=== PATIENT | male | born 1940 | race Caucasian/White ===

== ENCOUNTER 2019-02-22 11:40 | Inpatient (IN) | payer MEDICARE, OTHER ==
--- NOTE | 2019-02-22 12:13 | CT ---
CT BRAIN WITHOUT CONTRAST: 02/22/2019 12:00 a.m. CLINICAL HISTORY: History of altered mental status. Fall. COMPARISON: None. FINDINGS: Hemorrhage: None. Ventricular system: Enlarged ventricular system, out of size proportion to the cerebral sulci. Cerebral parenchyma: Periventricular white matter hypoattenuation bilaterally Midline shift: None. Mass: No mass effect. Calvarium: Normal. Visualized Paranasal sinuses: Scattered mild inflammatory mucosal thickening. IMPRESSION: Enlarged ventricular system, out of proportion to size of cerebral sulci with periventricular white m atter hypoattenuation. This could relate to transependymal cerebrospinal fluid migration. Recommend clinical correlation for evidence of normal pressure hydrocephalus. Telephone call to ER physician placed at time of dictation (1210 hours). CODE CR Transcribed Date/Time: 02/22/2019 12:48 PM
[2019-02-22 12:15] LABS: #Lymphocytes 0.4 thou/uL (1.20-3.40); #Neutrophils 10.5 thou/uL (1.40-6.50); %Lymphocytes 3.3 % (21.0-51.0); %Monocytes 8.7 % (0.0-10.0); Hemoglobin 15.1 g/dL (14.0-18.0); Mean Corpuscular HGB CONC 35.9 g/dL (32.0-36.0); Mean Corpuscular Hemoglobin 33.2 pg (27.0-31.0); Mean Corpuscular Volume 92.5 fL (78.0-98.0); Mean Platelet Volume 9.1 fL (7.4-10.4); Platelet Count 159 thou/uL (130-400); RBC Distribution Width 11.8 % (11.5-14.5); Red Blood Cell (RBC) Count 4.54 mill/uL (4.70-6.10)
--- NOTE | 2019-02-22 12:19 | CT ---
CT Cervical Spine WO Con Indication: History of neck injury related to fall COMPARISON: None available FINDINGS: Motion artifact does limit assessment. Acute fracture: No acute fracture Spinal alignment: There is spondylolisthesis, grade 1, C4-5 level likely degenerative, given the asso ciated bilateral facet osteoarthritis. Vertebral body heights: Mild degenerative height loss of cervical spine vertebral bodies Cervical spine degenerative change: Moderate to severe degenerative change, most notable at the mid t o lower aspect IMPRESSION: No acute osseous abnormality.
[2019-02-22 12:30] LABS: ALT (SGPT) 21 U/L (8-55); AST (SGOT) 29 U/L (5-34); Acetaminophen Less than 6.0 mcg/mL (10.0-30.0); Albumin 4.2 g/dL (3.4-4.8); Alcohol Less than 10 mg/dL (Less than 10); Alkaline Phosphatase 116 U/L (40-110); Anion Gap 17 mmol/L (10-20); BUN (Urea Nitrogen) 16 mg/dL (8.4-25.7); Bilirubin, Total 0.6 mg/dL (0.2-1.2); CK (CPK) 436 U/L (30-200); Calc. Creatinine Clearance 0 mL/min (70-130); Calcium 10.3 mg/dL (7.8-10.44); Carbon Dioxide 23 mmol/L (23-31); Chloride 101 mmol/L (98-107); Estimated GFR-MDRD 62; Globulin 3.1 g/dL (2.4-3.5); Glucose 200 mg/dL (83-110); Potassium 3.2 mmol/L (3.5-5.1); Protein, Total 7.3 g/dL (5.8-8.1); Salicylate Less than 8.0 mg/dL (15.0-30.0); Sodium 138 mmol/L (136-145)
[2019-02-22] MEDS ORDERED: Lorazepam 2 MG/ML VIAL ONE (12:41)
[2019-02-22 12:52] LABS: Bacteria/HPF None Seen HPF (None Seen); Bilirubin Negative (Negative); Blood, Urine 1+ (Negative); Clarity Clear (Clear); Glucose, Urine (Dipstick) 300 mg/dL (Negative); Leukocyte Negative Leu/uL (Negative); Nitrite Negative (Negative); Protein, Urine (Dipstick) 50 mg/dL (Neg-Trace); RBC/HPF 0-3 HPF (0-3); Squamous Epithelial None Seen HPF (0-3); Urobilinogen Normal mg/dL (Less than 2); WBC/HPF 0-3 HPF (0-3)
[2019-02-22 13:01] LABS: Amphetamine Not Detected (NotDetected); Barbiturates Screen Not Detected (NotDetected); Benzodiazepine Screen Not Detected (NotDetected); Cocaine Metabolite Screen Not Detected (NotDetected); Medtox Control Line Valid? VALID (VALID); Medtox Reader # READER 4; Methadone Not Detected (NotDetected); Methamphetamine Not Detected (NotDetected); Opiate Screen Not Detected (NotDetected); Oxycodone Screen Not Detected (NotDetected); Phencyclidine (PCP) Not Detected (NotDetected); THC/Cannabinoid Screen Not Detected (NotDetected); Tricyclic Screen Not Detected (NotDetected)
[2019-02-22 13:04] LABS: CKMB 15.5 ng/mL (0-6.6)
[2019-02-22 13:05] LABS: INR-International Normal Ratio 1.3; PTT 31.4 SEC (22.9-36.1); Prothrombin Time 15.9 SEC (12.0-14.7)
[2019-02-22] MEDS ORDERED: levETIRAcetam In NaCl (Iso-Os) 1,000 MG in Premix Bag 1 BAG IVPB ONE (13:15)
--- NOTE | 2019-02-22 13:16 | RAD ---
Exam: Chest one view HISTORY:AMS Comparison: 05/30/2002 FINDINGS: Lungs: No masses or consolidation. Cardiac silhouette:Enlarged cardiac silhouette Pulmonary vessels: Normal Pleural Spaces: Clear Pneumothorax: None Osseous abnormalities: None of acuity. IMPRESSION: Enlarged cardiac silhouette. Correlate clinically.
[2019-02-22] MEDS ORDERED: Nitroglycerin 2% Ointment 1 INCH/1 GM Packet ONE ×2 (13:19→13:21)
[2019-02-22] MEDS ORDERED: Aspirin 300 MG Suppository ONE (13:19)
[2019-02-22] MEDS ORDERED: Enoxaparin Sodium 80 MG/0.8 ML SYRINGE ONE (13:19)
[2019-02-22] MEDS ORDERED: Haloperidol Lactate 5 MG/ML VIAL IM PRN (13:44)
[2019-02-22] MEDS ORDERED: Morphine 4 MG/ML VIAL SLOW IVP PRN (13:45)
[2019-02-22] MEDS ORDERED: HYDROcodone/Acetaminophen 5/325 mg Tablet PO PRN (13:46)
[2019-02-22] MEDS ORDERED: Ondansetron PF 4 MG/2 ML Vial IVP PRN (13:46)
[2019-02-22] MEDS ORDERED: Acetaminophen 650 MG Suppository PR PRN (13:46)
[2019-02-22] MEDS ORDERED: Ondansetron ODT 4 MG TAB PO PRN (13:46)
[2019-02-22] MEDS ORDERED: Benzonatate 100 MG CAP PO PRN (13:50)
[2019-02-22] MEDS ORDERED: Docusate 100 MG CAP PO PRN (13:50)
[2019-02-22] MEDS ORDERED: Labetalol HCl 100 MG/20 ML VIAL SLOW IVP PRN (13:50)
[2019-02-22] MEDS ORDERED: Nitroglycerin 0.4 MG TAB (25 Tab Bottle) SL PRN (13:53)
[2019-02-22] MEDS ORDERED: Lorazepam 2 MG/ML VIAL SLOW IVP PRN (13:54)
[2019-02-22] MEDS ORDERED: Heparin 10,000 UNITS/ 10 ML VIAL SLOW IVP SCH (14:00)
[2019-02-22] MEDS ORDERED: Heparin 25,000 units/D5W 500 ML IVPB SCH (14:00)
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
[2019-02-22] MEDS ORDERED: Dextrose 5% in Water 1,000 ML IV PRN (14:44)
[2019-02-22] MEDS ORDERED: Dextrose 50% Abboject 50 ML SYRINGE SLOW IVP PRN (14:44)
[2019-02-22 15:29] LABS: Hemoglobin 14.6 g/dL (14.0-18.0); Platelet Count 151 thou/uL (130-400)
[2019-02-22 15:58] LABS: Troponin I 2.187 ng/mL (< 0.028)
--- NOTE | 2019-02-22 17:39 | CON ---
DATE OF CONSULTATION: REASON FOR CONSULTATION: Elevated troponin. HISTORY OF PRESENT ILLNESS: Mr. Cristobal Godinez is a 78-year-old gentleman, who recently seen and evaluated in the ICU. He had a seizure earlier this morning. The states it lasted several minutes. His eyes rolled back and he had tonic clonic jerks. He was stiff. He did have mental status changes shortly thereafter. He then had a recurrent episode. She states he had an episode of seizure several months ago, but did not seek treatment. This is a first episode. He has no previous history of early coronary artery disease. He denied chest pain, pressure, or associated symptoms prior to this episode. PAST MEDICAL HISTORY: Hypertension, hyperlipidemia, seizures, osteoarthritis, colon resection. SOCIAL HISTORY: No current tobacco or alcohol use. REVIEW OF SYSTEMS: Unobtainable. The patient has received Ativan. PHYSICAL EXAMINATION: GENERAL: The patient is currently sedated, but maintaining airway. VITAL SIGNS: Blood pressure 146/84, pulse 97, temperature, afebrile. NEUROLOGIC: The patient is alert and oriented x3 with no focal neurologic deficits. HEENT: Sclerae without icterus. Mouth has moist mucous membranes with normal pallor. NECK: No JVD. Carotid upstroke brisk. No bruits bilaterally. LUNGS: Clear to auscultation with unlabored respirations. BACK: No scoliosis or kyphosis. CARDIAC: Regular rate and rhythm with normal S1 and S2. No S3 or S4 noted. No significant rubs, murmurs, thrills, or gallops noted throughout the precordium. PMI is not displaced. There is no parasternal heave. ABDOMEN: Soft, nontender, nondistended. No peritoneal signs present. No hepatosplenomegaly. No abnormal striae. EXTREMITIES: 2+ femoral and 2+ dorsalis pedis pulses. No cyanosis, clubbing, or edema. SKIN: No gross abnormalities. PERTINENT LABORATORY DATA: Hemoglobin 15.1, white blood cell count 12,000, peak troponin 2.1, BNP of 294, CK-MB of 15.5. EKG showed normal sinus rhythm, right bundle branch block. IMPRESSION: 1. Elevated troponin. 2. Seizure disorder. RECOMMENDATIONS: So certainly troponin and CK-MB can both be elevated in the phase of seizure disorder. He has no previous history of underlying coronary artery disease. Neurosurgery and Neurology have been consulted. From my standpoint, would consider close observation. Recommend aspirin and treat blood pressure and heart rate aggressively. The patient is currently not taking p.o., but when taking p.o., I would recommend a beta-neha therapy. Continue to trend CKs and troponins. I will recommend echo Doppler. Job ID: [id number]
[2019-02-22 19:57] LABS: Troponin I 2.704 ng/mL (< 0.028)
[2019-02-22] MEDS: Famotidine/PF 20 mg/2ml Vial SLOW IVP SCH (21:10)
[2019-02-22] MEDS: Sodium Chloride 0.9% 1,000 ML IV SCH (21:11)
[2019-02-22] MEDS: levETIRAcetam In NaCl (Iso-Os) 1,000 MG in Premix Bag 1 BAG IVPB SCH (21:16)
[2019-02-23] MEDS: Sodium Chloride 0.9% 1,000 ML IV SCH ×3 (01:39→20:30)
[2019-02-23 04:48] LABS: #Basophils 0.1 thou/uL (0.0-0.2); #Lymphocytes 0.5 thou/uL (1.20-3.40); #Monocytes 1.3 thou/uL (0.11-0.59); #Neutrophils 14.3 thou/uL (1.40-6.50); %Basophils 0.5 % (0.0-1.0); %Eosinophils 0.1 % (0.0-10.0); %Lymphocytes 2.8 % (21.0-51.0); %Monocytes 8.2 % (0.0-10.0); %Neutrophils 88.4 % (42.0-75.0); Hemoglobin 15.3 g/dL (14.0-18.0); Mean Corpuscular HGB CONC 35.1 g/dL (32.0-36.0); Mean Corpuscular Hemoglobin 32.6 pg (27.0-31.0); Mean Corpuscular Volume 92.8 fL (78.0-98.0); Mean Platelet Volume 9.3 fL (7.4-10.4); Platelet Count 145 thou/uL (130-400); White Blood Cell (WBC) Count 16.2 thou/uL (4.8-10.8)
[2019-02-23 05:12] LABS: Anion Gap 19 mmol/L (10-20); BUN (Urea Nitrogen) 13 mg/dL (8.4-25.7); Calc. Creatinine Clearance 70 mL/min (70-130); Calcium 9.3 mg/dL (7.8-10.44); Carbon Dioxide 20 mmol/L (23-31); Chloride 103 mmol/L (98-107); Estimated GFR-MDRD 85; Glucose 107 mg/dL (83-110); Sodium 139 mmol/L (136-145)
[2019-02-23 05:15] LABS: Potassium 2.9 mmol/L (3.5-5.1)
[2019-02-23] MEDS ORDERED: Potassium Chloride 40 MEQ in Sodium Chloride 0.9% 250 ML 250 ML IVPB SCH (06:00)
--- NOTE | 2019-02-23 06:42 | PDOC.CPN ---
- Subjective Date: 02/23/19 Time: 13:38 Interval history: Pt still non verbal today EEG being performed No new issues overnight - Objective Allergies/Adverse Reactions: Allergies Allergy/AdvReac Type Severity Reaction Status Date / Time No Known Allergies Allergy Unverified 02/22/19 13:11 Visit Medications: Current Medications Acetaminophen (Tylenol) 650 mg MS Q4H PRN PRN Reason: Headache/Fever/Mild Pain (1-3) Hydrocodone Bitart/Acetaminophen (Moran 5/325) 1 tab PO Q4H PRN PRN Reason: Moderate Pain (4-6) Albuterol/Ipratropium (Duoneb) 3 ml NEB [id number] PRN PRN Reason: SOB &/or Wheezing Benzonatate (Tessalon) 100 mg PO Q4H PRN PRN Reason: Cough Dextrose/Water (Dextrose 50%) 25 gm SLOW IVP PRN PRN PRN Reason: Hypoglycemia Diphenhydramine HCl (Benadryl) 25 mg PO Q6H PRN PRN Reason: Itching & Insomnia Docusate Sodium (Colace) 100 mg PO BIDPRN PRN PRN Reason: Constipation Famotidine (Pepcid) 20 mg SLOW IVP Q12HR CAN Last Admin: 02/22/19 21:10 Dose: 20 mg Glucagon (Glucagon) 1 mg IM PRN PRN PRN Reason: Hypoglycemia Haloperidol Lactate (Haldol) 5 mg IM Q4H PRN PRN Reason: Agitation Heparin Sodium (Porcine) (Heparin 1,000 Units/Ml (10 Ml)) 0 units SLOW IVP ASDIR CAN; Protocol Levetiracetam 1,000 mg/ Device 100 mls @ 200 mls/hr IVPB BID CAN Last Admin: 02/22/19 21:16 Dose: 100 mls Heparin Sodium/Dextrose (Heparin 25,000 Units/D5w 500 Ml) 500 mls @ 0 mls/hr IVPB INF CAN; Protocol Dextrose/Water (D5w) 1,000 mls @ 0 mls/hr IV .Q0M PRN PRN Reason: Hypoglycemia Sodium Chloride (Normal Saline 0.9%) 1,000 mls @ 125 mls/hr IV .Q8H CAN Last Admin: 02/23/19 01:39 Dose: 1,000 mls Potassium Chloride 40 meq/ (Sodium Chloride) 270 mls @ 67.5 mls/hr IVPB NOW CAN Stop: 02/23/19 09:59 Last Admin: 02/23/19 06:31 Dose: 270 mls Insulin Human Lispro (Humalog) 0 units SC .MILD SLIDING SCALE PRN PRN Reason: Mild Correctional Scale Insulin Human Lispro (Humalog) 0 units SC .BEDTIME SLIDING SC PRN PRN Reason: Bedtime Correctional Scale Labetalol HCl (Normodyne) 10 mg SLOW IVP Q4H PRN PRN Reason: SBP Greater Than 180 Lorazepam (Ativan) 2 mg SLOW IVP Q1H PRN PRN Reason: Seizures Last Admin: 02/22/19 16:20 Dose: 2 mg Morphine Sulfate (Morphine) 4 mg SLOW IVP Q4H PRN PRN Reason: Chest Pain Last Admin: 02/22/19 16:05 Dose: 4 mg Nitroglycerin (Nitrostat) 0.4 mg SL Q5MIN PRN PRN Reason: Chest Pain Ondansetron HCl (Zofran Odt) 4 mg PO Q6H PRN PRN Reason: Nausea/Vomiting Ondansetron HCl (Zofran) 4 mg IVP Q6H PRN PRN Reason: Nausea/Vomiting Pneumococcal 13-Valent Conj Vacc (Prevnar) 0.5 ml IM .ONCE ONE Stop: 02/23/19 09:01 Vital Signs & Weight: Vital Signs Temp Pulse Ox 02/23/19 04:00 98.7 F 02/23/19 00:00 98.5 F 02/22/19 19:48 97 02/22/19 19:02 99 02/22/19 19:00 98.1 F Weight 155 lb 6.814 oz - Physical Exam Neck: no masses, no bruit Cardiac: regular rhythm Lungs: normal exam, no wheezes Abdomen: soft - Labs Result Diagrams: 02/23/19 04:21 02/23/19 04:21 Troponin/CKMB CK-MB (CK-2) 15.5 ng/mL (0-6.6) H* 02/22/19 11:59 Troponin I 2.704 ng/mL (< 0.028) H* 02/22/19 19:19 - Assessment/Plan Assessment/Plan: Elevated troponin Seizure D/o Elevated troponin >3.5 suggests significance injury after seizure. Troponin in this case 2.7 Check echo Continue supoprtive care Neuro consult
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
[2019-02-23] MEDS: Famotidine/PF 20 mg/2ml Vial SLOW IVP SCH ×2 (07:52→20:52)
--- NOTE | 2019-02-23 07:52 | PDOC.HOSPP ---
- Subjective Encounter Date: 02/23/19 Encounter Time: 07:50 Subjective: minimal verbal responce - Objective Vital Signs & Weight: Vital Signs (12 hours) Temp Pulse Ox 02/23/19 07:03 97 02/23/19 07:00 98.6 F 02/23/19 04:00 98.7 F 02/23/19 00:00 98.5 F Weight Weight 155 lb 6.814 oz Most Recent Monitor Data Heart Rate from ECG 106 NIBP 153/87 NIBP BP-Mean 109 Respiration from ECG 14 SpO2 98 I&O: 02/22/19 02/23/19 02/24/19 06:59 06:59 06:59 Intake Total 100 0 Output Total 675 0 Balance -575 0 Result Diagrams: 02/23/19 04:21 02/23/19 04:21 Additional Labs: Accuchecks 02/23/19 02/23/19 02/23/19 06:00 04:32 01:46 POC Glucose 120 H 104 111 H 02/22/19 02/22/19 02/22/19 23:56 22:21 19:49 POC Glucose 94 95 111 H 02/22/19 16:17 POC Glucose 146 H Hospitalist ROS - Medication Medications: Active Medications Generic Name Dose Route Start Last Admin Trade Name Freq PRN Reason Stop Dose Admin Famotidine 20 mg 02/22/19 21:00 02/22/19 21:10 Pepcid SLOW IVP 20 mg Q12HR CAN Administration Levetiracetam 1,000 mg/ Device 100 mls @ 200 mls/hr 02/22/19 21:00 02/22/19 21:16 IVPB 100 mls BID CAN Administration Sodium Chloride 1,000 mls @ 125 mls/hr 02/22/19 17:45 02/23/19 01:39 Normal Saline 0.9% IV 1,000 mls .Q8H CAN Administration Potassium Chloride 40 meq/ 270 mls @ 67.5 mls/hr 02/23/19 06:00 02/23/19 06: 31 Sodium Chloride IVPB 02/23/19 09:59 270 mls NOW CAN Administration Lorazepam 2 mg 02/22/19 13:54 02/22/19 16:20 Ativan SLOW IVP 2 mg Q1H PRN Administration Seizures Morphine Sulfate 4 mg 02/22/19 13:45 02/22/19 16:05 Morphine SLOW IVP 4 mg Q4H PRN Administration Chest Pain - Exam Neck: no JVD Heart: RRR, no murmur Respiratory: CTAB Gastrointestinal: soft, non-tender, normal bowel sounds Extremities: no edema Neurological - other findings: flaccd R arm Hosp A/P (1) Encephalopathy acute Code(s): G93.40 - ENCEPHALOPATHY, UNSPECIFIED Status: Acute (2) NSTEMI (non-ST elevated myocardial infarction) Code(s): I21.4 - NON-ST ELEVATION (NSTEMI) MYOCARDIAL INFARCTION Status: Acute (3) 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 Code(s): G40.211 - LOCAL-REL SYMPTC EPI W CMPLX PARTIAL SEIZ, NTRCT, W STAT EPI Status: Acute (4) DM (diabetes mellitus) Code(s): E11.9 - TYPE 2 DIABETES MELLITUS WITHOUT COMPLICATIONS Status: Chronic Qualifiers: Diabetes mellitus type: type 2 Diabetes mellitus fpc insulin use: without fpc use Diabetes mellitus complication status: with neurologic complications Diabetes mellitus complication detail: with polyneuropathy Qualified Code(s): E11.42 - Type 2 diabetes mellitus with diabetic polyneuropathy (5) HLD (hyperlipidemia) Code(s): E78.5 - HYPERLIPIDEMIA, UNSPECIFIED Status: Chronic Qualifiers: Hyperlipidemia type: unspecified Qualified Code(s): E78.5 - Hyperlipidemia , unspecified (6) HTN (hypertension) Code(s): I10 - ESSENTIAL (PRIMARY) HYPERTENSION Status: Chronic Qualifiers: Hypertension type: essential hypertension Qualified Code(s): I10 - Essential (primary) hypertension - Plan cont iv anti seizure meds MRI brain neuro consult accu/ss etc parenteral tx for HTN
[2019-02-23] MEDS ORDERED: Prevnar 13-Val Conj/PF 0.5 ML SYRINGE IM ONE (09:00)
[2019-02-23 09:20] LABS: CKMB 16.9 ng/mL (0-6.6)
[2019-02-23] MEDS: levETIRAcetam In NaCl (Iso-Os) 1,000 MG in Premix Bag 1 BAG IVPB SCH (09:59)
--- NOTE | 2019-02-23 12:52 | MRI ---
MRI BRAIN WITH AND WITHOUT IV CONTRAST: Date: 02/23/19 HISTORY: Seizures, altered mental status. FINDINGS: No restricted diffusion is seen. There is periventricular T2 hyperintensity bilaterally which may be related to transependymal CSF migration. The ventricular size appears slightly more prominent than ex pected for the degree of atrophy. No evidence of infarct, hemorrhage, mass, midline shift, or abnorma l extra-axial fluid collections seen. No abnormal postcontrast enhancement is noted. IMPRESSION: 1. No evidence of acute intracranial process or mass. 2. Probable normal pressure hydrocephalus. POS: OFF
[2019-02-23] MEDS: HumaLOG 300 UNITS/3 ML VIAL SC PRN (20:02)
--- NOTE | 2019-02-24 00:34 | CON ---
DATE OF CONSULTATION: 02/23/2019 CONSULTING PHYSICIAN: Hospitalist Services. IMPRESSION: 1. Recurrent seizures. 2. Lethargy, possibly secondary to the anticonvulsants. PLAN: 1. Decrease Keppra to 500 mg twice daily. 2. Monitor clinical course. HISTORY OF PRESENT ILLNESS: Mr. Godinez is a 78-year-old gentleman who reportedly is quite independent. He gets around independently without any cane or walker. He was helping his son build a ramp last week. He has mowed the grass on his own. He takes care of himself around the house. His reports he is a little forgetful, but he has no difficulties taking care of himself independently. About 3 months ago, she saw a brief seizure like episode. It only lasted a few seconds and it cleared quickly. Had no postictal phase of any significance. Prior to admission, his witnessed him to have a generalized tonic-clonic seizure while lying in bed. He was frothing at the mouth. She is indeterminate on the duration of the seizure. He awoke from the seizure and got himself out of the bed. He had wet his pants. She was stripping the bed and he attempted to walk around. He sat himself down and could not get up, his daughter decided need to be brought into the hospital. He had a CT scan of the brain done, which showed some ventricular enlargement and periventricular white matter changes. He was given IV Keppra 1000 mg. He has subsequently had an MRI of the brain, which failed to reveal any acute abnormalities. He did an EEG earlier today, which shows some normal 8 hertz background with superimposed mixed frequency slowing. No epileptiform features are present. PAST MEDICAL HISTORY: Hypertension, diabetes, hyperlipidemia, chronic pain from arthritis. MEDICATIONS: Include Xarelto. SOCIAL HISTORY: No tobacco or alcohol use. FAMILY HISTORY: Noncontributory. REVIEW OF SYSTEMS: Could not be obtained at this point due to his inability to answer. PHYSICAL EXAMINATION: GENERAL: He is a well-nourished elderly man, lying in bed, appearing to be asleep. VITAL SIGNS: Blood pressure 140/89, pulse 98, respirations 28, saturations 97%. HEENT: Pupils equal in size. Eyes are conjugate. Conjunctivae clear. Oropharynx clear. Cranium, normocephalic and atraumatic. NECK: Supple. EXTREMITIES: No cyanosis or edema. NEUROLOGIC: Could not get him to arouse and follow any commands at this point. His face appeared to be symmetric. His tone is symmetric. No abnormal movements were seen. SUMMARY: This is an elderly gentleman who was quite functional, independent, has had 2 recent seizures. I agree with Beulah, but would reduce the dose at this point. Hopefully, he will clear his head and return to his baseline shortly. Job ID: [id number]
[2019-02-24] MEDS: Sodium Chloride 0.9% 1,000 ML IV SCH ×3 (02:36→18:41)
[2019-02-24] MEDS: HumaLOG 300 UNITS/3 ML VIAL SC PRN ×2 (05:09→21:37)
--- NOTE | 2019-02-24 06:32 | PDOC.CPN ---
- Subjective Date: 02/24/19 Time: 20:52 Interval history: No changes noted overnight - Objective Allergies/Adverse Reactions: Allergies Allergy/AdvReac Type Severity Reaction Status Date / Time No Known Allergies Allergy Unverified 02/22/19 13:11 Visit Medications: Current Medications Acetaminophen (Tylenol) 650 mg MS Q4H PRN PRN Reason: Headache/Fever/Mild Pain (1-3) Hydrocodone Bitart/Acetaminophen (Conger 5/325) 1 tab PO Q4H PRN PRN Reason: Moderate Pain (4-6) Albuterol/Ipratropium (Duoneb) 3 ml NEB Q2BA-FH PRN PRN Reason: SOB &/or Wheezing Benzonatate (Tessalon) 100 mg PO Q4H PRN PRN Reason: Cough Dextrose/Water (Dextrose 50%) 25 gm SLOW IVP PRN PRN PRN Reason: Hypoglycemia Diphenhydramine HCl (Benadryl) 25 mg PO Q6H PRN PRN Reason: Itching & Insomnia Docusate Sodium (Colace) 100 mg PO BIDPRN PRN PRN Reason: Constipation Famotidine (Pepcid) 20 mg SLOW IVP Q12HR CAN Last Admin: 02/23/19 20:52 Dose: 20 mg Glucagon (Glucagon) 1 mg IM PRN PRN PRN Reason: Hypoglycemia Haloperidol Lactate (Haldol) 5 mg IM Q4H PRN PRN Reason: Agitation Heparin Sodium (Porcine) (Heparin 1,000 Units/Ml (10 Ml)) 0 units SLOW IVP ASDIR CAN; Protocol Heparin Sodium/Dextrose (Heparin 25,000 Units/D5w 500 Ml) 500 mls @ 0 mls/hr IVPB INF CAN; Protocol Dextrose/Water (D5w) 1,000 mls @ 0 mls/hr IV .Q0M PRN PRN Reason: Hypoglycemia Sodium Chloride (Normal Saline 0.9%) 1,000 mls @ 125 mls/hr IV .Q8H CAN Last Admin: 02/24/19 02:36 Dose: 1,000 mls Levetiracetam 500 mg/ Device 100 mls @ 200 mls/hr IVPB BID CAN Last Admin: 02/23/19 20:52 Dose: 100 mls Insulin Human Lispro (Humalog) 0 units SC .MILD SLIDING SCALE PRN PRN Reason: Mild Correctional Scale Last Admin: 02/24/19 05:09 Dose: 2 unit Insulin Human Lispro (Humalog) 0 units SC .BEDTIME SLIDING SC PRN PRN Reason: Bedtime Correctional Scale Labetalol HCl (Normodyne) 10 mg SLOW IVP Q4H PRN PRN Reason: SBP Greater Than 180 Lorazepam (Ativan) 2 mg SLOW IVP Q1H PRN PRN Reason: Seizures Last Admin: 02/22/19 16:20 Dose: 2 mg Morphine Sulfate (Morphine) 4 mg SLOW IVP Q4H PRN PRN Reason: Chest Pain Last Admin: 02/22/19 16:05 Dose: 4 mg Nitroglycerin (Nitrostat) 0.4 mg SL Q5MIN PRN PRN Reason: Chest Pain Ondansetron HCl (Zofran Odt) 4 mg PO Q6H PRN PRN Reason: Nausea/Vomiting Ondansetron HCl (Zofran) 4 mg IVP Q6H PRN PRN Reason: Nausea/Vomiting Vital Signs & Weight: Vital Signs Temp Pulse Ox 02/24/19 04:00 98.6 F 02/24/19 00:00 98.3 F 02/23/19 20:00 98.5 F 02/23/19 19:20 96 02/23/19 18:31 96 Weight 155 lb 6.814 oz - Physical Exam General: alert & oriented x3 Neck: no masses, no bruit Cardiac: regular rate, regular rhythm Lungs: no wheeze, rales, rhonchi - Labs Result Diagrams: 02/24/19 15:09 02/23/19 04:21 Troponin/CKMB CK-MB (CK-2) 16.9 ng/mL (0-6.6) H* 02/23/19 08:05 Troponin I 2.704 ng/mL (< 0.028) H* 02/22/19 19:19 - Assessment/Plan Assessment/Plan: Type 2 RI Seizure disorder Add BB,statin, ASA when more alert and awake Pt still not taking po meds Check echo Treat conservatively
--- NOTE | 2019-02-24 08:58 | PDOC.HOSPP ---
- Subjective Encounter Date: 02/24/19 Encounter Time: 08:56 Subjective: minimally responsive. uses L arm spontaneously, minimal use R arm. says he is R handed - Objective Vital Signs & Weight: Vital Signs (12 hours) Temp Pulse Ox 02/24/19 07:50 95 02/24/19 04:00 98.6 F 02/24/19 00:00 98.3 F Weight Weight 155 lb 6.814 oz Most Recent Monitor Data Heart Rate from ECG 111 NIBP 145/89 NIBP BP-Mean 107 Respiration from ECG 25 SpO2 98 I&O: 02/23/19 02/24/19 02/25/19 06:59 06:59 06:59 Intake Total 100 3040 Output Total 675 2177 Balance -575 863 Result Diagrams: 02/23/19 04:21 02/23/19 04:21 Additional Labs: Accuchecks 02/24/19 02/23/19 02/23/19 03:57 21:56 19:57 POC Glucose 172 H 171 H 198 H 02/23/19 02/23/19 16:09 11:27 POC Glucose 168 H 134 H Radiology Reviewed by me: Yes (MRI brain-no bleed or CVA) EKG Reviewed by me: Yes (ventricular bigeminy) Hospitalist ROS - Medication Medications: Active Medications Generic Name Dose Route Start Last Admin Trade Name Freq PRN Reason Stop Dose Admin Famotidine 20 mg 02/22/19 21:00 02/23/19 20:52 Pepcid SLOW IVP 20 mg Q12HR CAN Administration Sodium Chloride 1,000 mls @ 125 mls/hr 02/22/19 17:45 02/24/19 02:36 Normal Saline 0.9% IV 1,000 mls .Q8H CAN Administration Levetiracetam 500 mg/ Device 100 mls @ 200 mls/hr 02/23/19 21:00 02/23/19 20: 52 IVPB 100 mls BID CAN Administration Insulin Human Lispro 0 units 02/22/19 14:44 02/24/19 05:09 Humalog SC 2 unit .MILD SLIDING SCALE PRN Administration Mild Correctional Scale Lorazepam 2 mg 02/22/19 13:54 02/22/19 16:20 Ativan SLOW IVP 2 mg Q1H PRN Administration Seizures Morphine Sulfate 4 mg 02/22/19 13:45 02/22/19 16:05 Morphine SLOW IVP 4 mg Q4H PRN Administration Chest Pain - Exam Neck: no JVD Heart: RRR, irregular Heart - other findings: runs of ventricular bigeminy Respiratory: CTAB, no wheezes Gastrointestinal: soft, normal bowel sounds Extremities: no edema Neurological - other findings: weak on R Hosp A/P (1) Encephalopathy acute Code(s): G93.40 - ENCEPHALOPATHY, UNSPECIFIED Status: Acute (2) 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 Code(s): G40.211 - LOCAL-REL SYMPTC EPI W CMPLX PARTIAL SEIZ, NTRCT, W STAT EPI Status: Acute (3) NSTEMI (non-ST elevated myocardial infarction) Code(s): I21.4 - NON-ST ELEVATION (NSTEMI) MYOCARDIAL INFARCTION Status: Acute (4) DM (diabetes mellitus) Code(s): E11.9 - TYPE 2 DIABETES MELLITUS WITHOUT COMPLICATIONS Status: Chronic Qualifiers: Diabetes mellitus type: type 2 Diabetes mellitus meterman insulin use: without long-term use Diabetes mellitus complication status: with neurologic complications Diabetes mellitus complication detail: with polyneuropathy Qualified Code(s): E11.42 - Type 2 diabetes mellitus with diabetic polyneuropathy (5) HLD (hyperlipidemia) Code(s): E78.5 - HYPERLIPIDEMIA, UNSPECIFIED Status: Chronic Qualifiers: Hyperlipidemia type: unspecified Qualified Code(s): E78.5 - Hyperlipidemia , unspecified (6) HTN (hypertension) Code(s): I10 - ESSENTIAL (PRIMARY) HYPERTENSION Status: Chronic Qualifiers: Hypertension type: essential hypertension Qualified Code(s): I10 - Essential (primary) hypertension (7) Hypokalemia Code(s): E87.6 - HYPOKALEMIA Status: Acute - Plan cont iv anti seizure meds MRI brain unrevealing neuro consult , appreciate input accu/ss etc parenteral tx for HTN discuss with medical device
[2019-02-24] MEDS: Famotidine/PF 20 mg/2ml Vial SLOW IVP SCH ×2 (10:06→21:26)
--- NOTE | 2019-02-24 10:06 | EEG ---
Referring Physician: Kasey MIRELES EEG # [id number] TEST TYPE: ROUTINE PORTABLE INPATIENT REPORT: AN EEG USING THE INTERNATIONAL TEN-TWENTY SYSTEM OF ELECTRODE PLACEMENT WAS PERFORMED. The background rhythm is mixed frequency slowing. At best, there is 8 hertz alpha frequency with superimposed 5 hertz theta and 2 hertz delta. Photic stimulation was unremarkable. No epileptiform features were present. IMPRESSION: THIS IS AN ABNORMAL STUDY FOR THE FINDINGS OF DIFFUSE SLOWING CONSISTENT WITH A DIFFUSE ENCEPHALOPATHIC PROCESS. Equal Opportunity Representative: ROSALIA Fisher Swordfish: EEG.GRANT VELEZ
--- NOTE | 2019-02-24 10:23 | PRG ---
DATE OF SERVICE: 02/24/2019 I personally examined the patient, reviewed records and imaging and agreed with documentation of Marizol Krueger PA-C, dated 02/22/2019. Briefly , Cristobal Godinez is a 78-year-old gentleman, who had isolated seizure about 3 months ago and returned to the emergency department two days ago with repeat seizure activity this time with troponin elevation. Neurosurgery is consulted for ventriculomegaly. Mr. Godinez remains extubated, but is in the ICU. He has been making a very slow recovery. I do not see any fevers recorded since his admission. Blood pressure has been 140s to 160s. On examination, Mr. Godinez is resting. To loud voice, he opens eye more so on the left than the right. He is not following commands, but he does localize quite briskly. He is stronger on the left side than he is on the right. He is not recollecting either side. There is no discernible speech output, but he does make some attempt and noises produced. I reviewed imaging of the brain and there is ventriculomegaly in all four ventricles. There is some T2 signal change and FLAIR signal change around the ventricles, especially the lateral ventricles, this is more than we typically see in normal-pressure hydrocephalus. There is no enhancement in the ependyma that I can appreciate on his MRI scan. The foramen magnum is widely patent. The basal cisterns are wide open. Mr. Godinez has hydrocephalus of unknown origin. 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 There seems to be CSF resorption problem. The basal cisterns and foramen magnum are widely patent. A lumbar puncture for protein cells, glucose, Gram stain, and culture could be obtained. We could also see if this lumbar puncture improves any neurological alertness. I do not believe that the hydrocephalus is brand new or emergent, but may be a contributing factor to his level of current neurological function. Workup and management of his myocardial infarction are necessary as well and coordinating any intervention for hydrocephalus with use of anti-platelet agents for myocardial infarction treatment will be done as judiciously as possible. If Mr. Godinez returns to his baseline neurological function and has no evidence of current or recent meningitis, then we can see him in the clinic in followup and decide when to place a shunt or if it is necessary. On the other hand, if we do not make significant neurological improvement over the next few days and there is drastic improvement with lumbar puncture, then we will need to coordinate some CSF diversion during this hospitalization. Job ID: [id number] MTDD
[2019-02-24 15:15] LABS: Hemoglobin 16.2 g/dL (14.0-18.0); Platelet Count 147 thou/uL (130-400)
--- NOTE | 2019-02-24 17:17 | EKG ---
Test Reason : Blood Pressure : / mmHG Vent. Rate : 097 BPM Atrial Rate : 097 BPM P-R Int : 168 ms QRS Dur : 160 ms QT Int : 442 ms P-R-T Axes : 037 -75 036 degrees QTc Int : 561 ms Sinus rhythm with frequent Premature ventricular complexes Possible Left atrial enlargement Left axis deviation Right bundle branch block Abnormal ECG #2 Confirmed by YOVANI CUETO MD ([id number]), newspaper managing editor NELLI DEL RIO ([id number]) on 02/24/2019 5:16:51 PM Referred By: Confirmed By:YOVANI CUETO MD
--- NOTE | 2019-02-24 17:17 | EKG ---
Test Reason : AMS Blood Pressure : / mmHG Vent. Rate : 109 BPM Atrial Rate : 109 BPM P-R Int : 156 ms QRS Dur : 144 ms QT Int : 370 ms P-R-T Axes : 053 -78 048 degrees QTc Int : 498 ms Sinus tachycardia Possible Left atrial enlargement Left axis deviation Right bundle branch block Abnormal ECG Confirmed by NORY KIM, YOVANI ([id number]), restaurant expeditor NELLI DEL RIO ([id number]) on 02/24/2019 5:16:37 PM Referred By: Confirmed By:YOVANI CUETO MD
--- NOTE | 2019-02-24 17:49 | CON ---
DATE OF CONSULTATION: HISTORY OF PRESENT ILLNESS: Cristobal Godinez is a 78-year-old gentleman, who was admitted to the hospital with new-onset seizure activity. It is extensively outlined. This morning, he was still seizing. There was some concern about normal pressure hydrocephalus. They supposed to do lumbar puncture, which has not been done. Today in the ICU, lethargic, but appears quite appropriate. His is at the bedside and gives pretty much most of the history. PAST MEDICAL HISTORY: Seizure activity off and on for a period of time, but took no medication until several days ago. More grand mal seizure activity, diabetes, chronic arthritis, hypertension, chronic pain, abnormal troponin. PAST SURGICAL HISTORY: Apparently got a filter in place. Right hip fracture. No surgery was recommended. DVT about a year ago, on long-term anticoagulation. SOCIAL HISTORY: They owned a machine shop. ALLERGIES: NONE. HOME MEDICATIONS: Include: 1. Simvastatin 80. 2. Tramadol 50. 3. Vitamins. 4. Lisinopril 20. 5. Xarelto 20. 6. Omeprazole 40. 7. Benadryl. 8. He is now started on Keppra 500 b.i.d., no intake for several days. 9. He is given Ativan p.r.n. 10. Morphine. REVIEW OF SYSTEMS: Otherwise unremarkable. PHYSICAL EXAMINATION: VITAL SIGNS: Pulse 115, blood pressure 147/57, saturations are 98% on room air, respiratory rate 16. CHEST: No wheezing or crackles. CARDIAC: Normal S1 and S2. No gallops. ABDOMEN: No masses. LABORATORY DATA: Glucose is 156. H and H, unremarkable. Lytes are normal. INR is normal. H and H are normal. Platelet count is normal. Urine is unremarkable. Toxicology screen was negative. ASSESSMENT: 1. New-onset seizure activity. 2. Hydrocephalus. 3. History of deep venous thrombosis, on anticoagulation for a year. 4. Abnormal troponin. 5. Diabetes. 6. Hypertension. 7. Bad hip. PLAN: Continue Keppra. Await input to see whether he needs a lumbar puncture and a drain. I am going to do ultrasound of his both legs to see he has DVT. I am going to need Lovenox once we assess his overall status. Consultation note, 70 minutes, 50% direct patient care. Job ID: [id number]
--- NOTE | 2019-02-24 18:13 | RAD ---
KUB: 02/24/19 HISTORY: Inferior vena cava filter assessment. The bowel gas pattern is nonobstructive. An IVC filter is seen at the level of L3. Postoperative sukhjinder nges of the abdomen are noted. Postoperative changes of the right acetabulum are seen. IMPRESSION: IVC filter at L3. POS: LEONA
--- NOTE | 2019-02-24 19:22 | ULT ---
US Venous Doppler Bilat History: Deep venous thrombosis Comparison: None. Findings: Real-time grayscale, color, and spectral analysis of the bilateral lower extremity venous s ystem was performed. Common femoral, femoral, proximal portions greater saphenous and deep femoral veins as well as the po pliteal and posterior tibial veins were interrogated Right lower extremity is without thrombus. There is thrombosis, partially occlusive, at the common fe moral vein, femoral vein, and popliteal vein on the left. Impression: Partially occlusive thrombus left lower extremity.
[2019-02-25] MEDS: Sodium Chloride 0.9% 1,000 ML IV SCH ×4 (01:29→20:46)
[2019-02-25] MEDS: HumaLOG 300 UNITS/3 ML VIAL SC PRN ×2 (03:39→19:26)
--- NOTE | 2019-02-25 08:14 | PDOC.HOSPP ---
- Subjective Encounter Date: 02/25/19 Encounter Time: 08:12 Subjective: still minimally responsive to verbal stimuli - Objective Vital Signs & Weight: Vital Signs (12 hours) Temp 02/25/19 07:00 97.8 F 02/25/19 04:00 97.8 F 02/25/19 00:00 98.5 F Weight Weight 146 lb 2.664 oz Most Recent Monitor Data Heart Rate from ECG 111 NIBP 160/86 NIBP BP-Mean 110 Respiration from ECG 28 SpO2 96 I&O: 02/24/19 02/25/19 02/26/19 06:59 06:59 06:59 Intake Total 3040 2694 Output Total 2177 2100 0 Balance 863 594 0 Result Diagrams: 02/24/19 15:09 02/23/19 04:21 Additional Labs: Accuchecks 02/25/19 02/24/19 02/24/19 03:39 21:38 11:18 POC Glucose 221 H 189 H 156 H Hospitalist ROS - Medication Medications: Active Medications Generic Name Dose Route Start Last Admin Trade Name Cesar PRN Reason Stop Dose Admin Famotidine 20 mg 02/22/19 21:00 02/24/19 21:26 Pepcid SLOW IVP 20 mg Q12HR CAN Administration Sodium Chloride 1,000 mls @ 125 mls/hr 02/22/19 17:45 02/25/19 01:29 Normal Saline 0.9% IV Not Given .Q8H CAN Levetiracetam 500 mg/ Device 100 mls @ 200 mls/hr 02/23/19 21:00 02/24/19 21: 26 IVPB 100 mls BID CAN Administration Insulin Human Lispro 0 units 02/22/19 14:44 02/25/19 03:39 Humalog SC 3 unit .MILD SLIDING SCALE PRN Administration Mild Correctional Scale Lorazepam 2 mg 02/22/19 13:54 02/22/19 16:20 Ativan SLOW IVP 2 mg Q1H PRN Administration Seizures Morphine Sulfate 4 mg 02/22/19 13:45 02/22/19 16:05 Morphine SLOW IVP 4 mg Q4H PRN Administration Chest Pain - Exam Neck: no JVD Heart: RRR, no murmur Respiratory: CTAB Gastrointestinal: soft, normal bowel sounds Extremities: no cyanosis, no clubbing, no edema Neurological: no focal deficits Hosp A/P (1) Encephalopathy acute Code(s): G93.40 - ENCEPHALOPATHY, UNSPECIFIED Status: Acute (2) 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 Code(s): G40.211 - LOCAL-REL SYMPTC EPI W CMPLX PARTIAL SEIZ, NTRCT, W STAT EPI Status: Acute (3) NSTEMI (non-ST elevated myocardial infarction) Code(s): I21.4 - NON-ST ELEVATION (NSTEMI) MYOCARDIAL INFARCTION Status: Acute (4) DM (diabetes mellitus) Code(s): E11.9 - TYPE 2 DIABETES MELLITUS WITHOUT COMPLICATIONS Status: Chronic Qualifiers: Diabetes mellitus type: type 2 Diabetes mellitus penitentiary insulin use: without medical terminologist use Diabetes mellitus complication status: with neurologic complications Diabetes mellitus complication detail: with polyneuropathy Qualified Code(s): E11.42 - Type 2 diabetes mellitus with diabetic polyneuropathy (5) HLD (hyperlipidemia) Code(s): E78.5 - HYPERLIPIDEMIA, UNSPECIFIED Status: Chronic Qualifiers: Hyperlipidemia type: unspecified Qualified Code(s): E78.5 - Hyperlipidemia , unspecified (6) HTN (hypertension) Code(s): I10 - ESSENTIAL (PRIMARY) HYPERTENSION Status: Chronic Qualifiers: Hypertension type: essential hypertension Qualified Code(s): I10 - Essential (primary) hypertension (7) Hypokalemia Code(s): E87.6 - HYPOKALEMIA Status: Acute - Plan cont iv anti seizure meds planned Diagnostic LP accu/ss etc parenteral tx for HTN discuss with aircraft de icer installer post LP
--- NOTE | 2019-02-25 08:58 | PRG ---
DATE OF SERVICE: 02/25/2019 SUBJECTIVE: Cristobal Godinez remains encephalopathic in the ICU. His ultrasound showed DVT in his left leg with the inferior cava filter at his L2-L3 area. OBJECTIVE: VITAL SIGNS: Temperature 98, blood pressure 130/85, saturations 100%, respirations 18. CHEST: Decreased breath sounds without any wheezing. CARDIAC: Normal S1 and S2. No gallop. ABDOMEN: No mass. IMPRESSION: 1. Metabolic encephalopathy. 2. Seizure disorder. 3. Hydrocephalus. 4. Deep vein thrombosis. 5. Coronary artery disease. PLAN: Dobhoff being ordered. Thereafter, Nutrition, PT, supportive care. Eventually, lumbar puncture as per Neurology and Neurosurgery. We will follow while in the ICU. Job ID: [id number]
--- NOTE | 2019-02-25 09:12 | PRG ---
DATE OF SERVICE: 02/25/2019 I saw Cristobal Godinez in his ICU room this morning. No events reported by nursing. Vitals have been stable. There is no fever recorded. : Mr. Godinez is slightly more alert than he was yesterday. His eyes are open as I entered the room. He says words that are comprehensible. He follows commands. However, he is not speaking much and when he does so, it is one word at a time. His following commands is quite slow and takes a significant amount of reinforcement until he performs the activity requested. By report, a lumbar puncture is scheduled for today. Enough fluid for protein, glucose, cells, Gram stain, culture, fungal culture, cryptococcal antigen, and other chronic low-level meningeal disease should be studied (histo and blasto depending on exposure). Advice could be obtained from the Infectious Disease Service. We will continue to follow his cultures and neurological examination during this hospitalization and decide whether permanent CSF diversion is warranted. Job ID: [id number] MTDD
[2019-02-25] MEDS: Famotidine/PF 20 mg/2ml Vial SLOW IVP SCH ×2 (09:50→19:20)
--- NOTE | 2019-02-25 14:56 | RAD ---
LUMBAR PUNCTURE WITH IMAGING GUIDANCE: PROCEDURE: Initial attempt for access into the thecal sac was performed utilizing fluoroscopy, although this was not obtainable due to patient's inability to tolerate positioning and maintain a stable posture for the exam. Therefore the patient was moved to CT imaging suite for further imaging guidance. The p atient's low back was prepped and draped in standard sterile fashion. Topical anesthesia was achieved with buffered 1% lidocaine, and subsequently, a 20-gauge needle was advanced into the thecal sac. 10 cc of CSF was subsequently obtained from the thecal sac. The needle was removed. Specimens were sent to laboratory for further analysis. No procedural complications. Needle was removed. Hemost asis was achieved. IMPRESSION: Technically successful image guided lumbar puncture yielding 10 cc of cerebrospinal fluid. Laboratory results are pending. Transcribed Date/Time: 02/26/2019 11:58 AM
--- NOTE | 2019-02-25 15:49 | CT ---
LUMBAR PUNCTURE WITH IMAGING GUIDANCE: PROCEDURE: Initial attempt for access into the thecal sac was performed utilizing fluoroscopy, although this was not obtainable due to patient's inability to tolerate positioning and maintain a stable posture for the exam. Therefore the patient was moved to CT imaging suite for further imaging guidance. The p atient's low back was prepped and draped in standard sterile fashion. Topical anesthesia was achieved with buffered 1% lidocaine, and subsequently, a 20-gauge needle was advanced into the thecal sac. 10 cc of CSF was subsequently obtained from the thecal sac. The needle was removed. Specimens were sent to laboratory for further analysis. No procedural complications. Needle was removed. Hemost asis was achieved. IMPRESSION: Technically successful image guided lumbar puncture yielding 10 cc of cerebrospinal fluid. Laboratory results are pending. Transcribed Date/Time: 02/25/2019 3:56 PM
[2019-02-25 16:29] LABS: CSF, Glucose 137 mg/dl (40-70); CSF, Protein 57 mg/dL (15-40)
[2019-02-25 16:50] LABS: CSF Source CSF; Clarity Hazy (Clear); Tube # 2
[2019-02-25 16:52] LABS: Cell Count Non Hematic 7 %; Lymphocytes 6 %
[2019-02-25] MEDS ORDERED: Amiodarone 150 MG, Admixture Fee 1 EACH in Dextrose 5% in Water 100 ML IVPB SCH (17:15)
[2019-02-25 17:17] LABS: #Lymphocytes 0.5 thou/uL (1.20-3.40); #Monocytes 1.8 thou/uL (0.11-0.59); #Neutrophils 11.8 thou/uL (1.40-6.50); %Basophils 0.1 % (0.0-1.0); %Eosinophils 0.1 % (0.0-10.0); %Lymphocytes 3.6 % (21.0-51.0); %Monocytes 12.7 % (0.0-10.0); %Neutrophils 83.6 % (42.0-75.0); Hemoglobin 15.6 g/dL (14.0-18.0); Mean Corpuscular HGB CONC 33.8 g/dL (32.0-36.0); Mean Corpuscular Hemoglobin 32.1 pg (27.0-31.0); Mean Platelet Volume 9.6 fL (7.4-10.4); Platelet Count 165 thou/uL (130-400); RBC Distribution Width 12.2 % (11.5-14.5); Red Blood Cell (RBC) Count 4.88 mill/uL (4.70-6.10); White Blood Cell (WBC) Count 14.1 thou/uL (4.8-10.8)
--- NOTE | 2019-02-25 17:18 | RAD ---
PORTABLE CHEST: 02/25/19 HISTORY: Hypotension. COMPARISON: 02/22/19 study. Heart size is enlarged. Mediastinal structures appear unremarkable. Lungs are clear of infiltrates. N o signs of failure. IMPRESSION: Cardiomegaly. POS: TPC
[2019-02-25 17:33] LABS: Anion Gap 22 mmol/L (10-20); BUN (Urea Nitrogen) 22 mg/dL (8.4-25.7); Calc. Creatinine Clearance 47 mL/min (70-130); Carbon Dioxide 15 mmol/L (23-31); Chloride 111 mmol/L (98-107); Estimated GFR-MDRD 57; Glucose 226 mg/dL (83-110); Sodium 145 mmol/L (136-145)
[2019-02-25 17:39] LABS: Potassium 2.9 mmol/L (3.5-5.1)
[2019-02-25] MEDS ORDERED: Potassium Phosphate 12 MMOL in Sodium Chloride 0.9% 250 ML 250 ML IV PRN (17:45)
[2019-02-25] MEDS ORDERED: PHOS-NAK 1 PKT PACK PO PRN (17:45)
[2019-02-25] MEDS ORDERED: Magnesium Oxide 400 MG TAB PO PRN ×2 (17:45)
[2019-02-25] MEDS ORDERED: Sodium Chloride 0.9% 1,000 ML IV SCH (17:45)
[2019-02-25] MEDS ORDERED: Magnesium 2 GM/50 ML 2 GM in Premix Bag 1 BAG IVPB PRN (17:45)
[2019-02-25] MEDS ORDERED: Potassium Phosphate 9 MMOL in Sodium Chloride 0.9% 100 ML IVPB PRN (17:45)
[2019-02-25] MEDS ORDERED: CCU ELECTROLYTE REPLACEMENT PROTOCOL FS PRN (17:45)
[2019-02-25] MEDS ORDERED: Potassium Chloride 20 MEQ TAB PO PRN (17:45)
[2019-02-25] MEDS ORDERED: Potassium Chloride 40 MEQ in Premix Bag 1 BAG IVPB PRN (17:45)
[2019-02-25] MEDS ORDERED: Potassium Phosphate 15 MMOL in Sodium Chloride 0.9% 250 ML 250 ML IV PRN (17:45)
[2019-02-25] MEDS: Amiodarone 450 MG in Dextrose 5% in Water 250 ML IVPB SCH (17:54)
--- NOTE | 2019-02-25 18:04 | PDOC.HOSPP ---
- Subjective Encounter Date: 02/25/19 Encounter Time: 18:02 Subjective: responded at 1630 to nurses call about tachycardia. post just returned to CCU from LP earlier in day. BP 82sys, pulse 160 irreg - Objective Vital Signs & Weight: Vital Signs (12 hours) Temp Pulse Pulse BP BP Pulse Ox Pulse Ox 02/25/19 17:16 100 02/25/19 17:10 98.9 F 02/25/19 11:03 102 H 103 H 133/82 125/95 H 95 02/25/19 08:00 97 02/25/19 07:00 97.8 F Pulse Ox 02/25/19 17:16 02/25/19 17:10 02/25/19 11:03 96 02/25/19 08:00 02/25/19 07:00 Weight Weight 146 lb 2.664 oz Most Recent Monitor Data Heart Rate from ECG 155 NIBP 92/62 NIBP BP-Mean 72 Respiration from ECG 22 SpO2 97 I&O: 02/24/19 02/25/19 02/26/19 06:59 06:59 06:59 Intake Total 3040 2694 Output Total 2177 2100 150 Balance 863 594 -150 Result Diagrams: 02/25/19 17:00 02/25/19 17:00 Additional Labs: Accuchecks 02/25/19 02/25/19 02/24/19 10:26 03:39 21:38 POC Glucose 180 H 221 H 189 H Radiology Reviewed by me: Yes (no chf, infiltrate on CXR) EKG Reviewed by me: Yes (Atrial fib with RVR) Hospitalist ROS - Medication Medications: Active Medications Generic Name Dose Route Start Last Admin Trade Name Freq PRN Reason Stop Dose Admin Famotidine 20 mg 02/22/19 21:00 02/25/19 09:50 Pepcid SLOW IVP 20 mg Q12HR CAN Administration Sodium Chloride 1,000 mls @ 125 mls/hr 02/22/19 17:45 02/25/19 09:56 Normal Saline 0.9% IV 1,000 mls .Q8H CAN Administration Levetiracetam 500 mg/ Device 100 mls @ 200 mls/hr 02/23/19 21:00 02/25/19 09: 50 IVPB 100 mls BID CAN Administration Amiodarone HCl 150 mg/ 103 mls @ 618 mls/hr 02/25/19 17:15 02/25/19 17:40 Miscellaneous Medication 1 IVPB 02/25/19 19:15 103 mls each/ Dextrose/Water NOW CAN Administration Protocol Amiodarone HCl 450 mg/ 259 mls @ 0 mls/hr 02/25/19 17:45 02/25/19 17:54 Dextrose/Water IVPB 259 mls INF CAN Administration Protocol Per Protocol Insulin Human Lispro 0 units 02/22/19 14:44 02/25/19 03:39 Humalog SC 3 unit .MILD SLIDING SCALE PRN Administration Mild Correctional Scale Lorazepam 2 mg 02/22/19 13:54 02/22/19 16:20 Ativan SLOW IVP 2 mg Q1H PRN Administration Seizures Morphine Sulfate 4 mg 02/22/19 13:45 02/22/19 16:05 Morphine SLOW IVP 4 mg Q4H PRN Administration Chest Pain - Exam Neck: no JVD Heart: no murmur, irregular Respiratory: CTAB Gastrointestinal: soft, non-tender, normal bowel sounds Extremities: no edema Skin - other findings: cold clammy Hosp A/P (1) Encephalopathy acute Code(s): G93.40 - ENCEPHALOPATHY, UNSPECIFIED Status: Acute (2) Hypotension Status: Acute Qualifiers: Hypotension type: postprocedural hypotension Qualified Code(s): I95.81 - Postprocedural hypotension (3) 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 Code(s): G40.211 - LOCAL-REL SYMPTC EPI W CMPLX PARTIAL SEIZ, NTRCT, W STAT EPI Status: Acute (4) NSTEMI (non-ST elevated myocardial infarction) Code(s): I21.4 - NON-ST ELEVATION (NSTEMI) MYOCARDIAL INFARCTION Status: Acute (5) DM (diabetes mellitus) Code(s): E11.9 - TYPE 2 DIABETES MELLITUS WITHOUT COMPLICATIONS Status: Chronic Qualifiers: Diabetes mellitus type: type 2 Diabetes mellitus assisted insulin use: without lobsterman use Diabetes mellitus complication status: with neurologic complications Diabetes mellitus complication detail: with polyneuropathy Qualified Code(s): E11.42 - Type 2 diabetes mellitus with diabetic polyneuropathy (6) HLD (hyperlipidemia) Code(s): E78.5 - HYPERLIPIDEMIA, UNSPECIFIED Status: Chronic Qualifiers: Hyperlipidemia type: unspecified Qualified Code(s): E78.5 - Hyperlipidemia , unspecified (7) HTN (hypertension) Code(s): I10 - ESSENTIAL (PRIMARY) HYPERTENSION Status: Chronic Qualifiers: Hypertension type: essential hypertension Qualified Code(s): I10 - Essential (primary) hypertension (8) Hypokalemia Code(s): E87.6 - HYPOKALEMIA Status: Acute (9) Atrial fibrillation with rapid ventricular response Code(s): I48.91 - UNSPECIFIED ATRIAL FIBRILLATION Status: Acute - Plan iv amiodarone bolus-iv infusion bolus NS , then 150 ml/hr discussed with cardiologspinal fluid with neucleated cells, elevated protein and glucoshave placed call to neuro and ID 90 minutes 1-1 critical care
[2019-02-25 18:10] LABS: Troponin I 0.505 ng/mL (< 0.028)
--- NOTE | 2019-02-25 18:22 | PDOC.EVN ---
Event Note - Event Note Event Note: discussed spinal fluid with ID. considered to be contaminated -high RBC count
[2019-02-25] MEDS: Potassium Chloride 40 MEQ in Sodium Chloride 0.9% 250 ML 250 ML IVPB PRN (18:25)
[2019-02-25] MEDS ORDERED: Digoxin 0.5 MG/2 ML AMP SLOW IVP SCH (18:30)
[2019-02-25 19:43] LABS: Critical Call Chem Troponin I RESULT DECREASING; Troponin I 0.414 ng/mL (< 0.028)
[2019-02-25 19:55] LABS: Segmented Neutrophils 87 %
[2019-02-25 21:59] LABS: Troponin I 0.488 ng/mL (< 0.028)
[2019-02-26 00:21] LABS: Potassium 2.7 mmol/L (3.5-5.1)
[2019-02-26] MEDS: Amiodarone 450 MG in Dextrose 5% in Water 250 ML IVPB SCH (00:44)
[2019-02-26] MEDS ORDERED: Amiodarone 150 MG, Admixture Fee 1 EACH in Dextrose 5% in Water 100 ML IVPB SCH (00:45)
[2019-02-26] MEDS: Potassium Chloride 40 MEQ in Sodium Chloride 0.9% 250 ML 250 ML IVPB PRN (00:56)
[2019-02-26] MEDS: Sodium Chloride 0.9% 1,000 ML IV SCH ×3 (03:42→17:50)
[2019-02-26 06:43] LABS: Potassium 3.5 mmol/L (3.5-5.1)
[2019-02-26] MEDS: HumaLOG 300 UNITS/3 ML VIAL SC PRN ×2 (06:52→17:50)
--- NOTE | 2019-02-26 07:18 | PDOC.HOSPP ---
- Subjective Encounter Date: 02/26/19 Encounter Time: 07:15 Subjective: responsive to verbal stimuli, weak - Objective Vital Signs & Weight: Vital Signs (12 hours) Temp Pulse Ox 02/26/19 06:00 98.6 F 02/26/19 02:00 98.5 F 02/25/19 23:00 98.6 F 02/25/19 20:00 98.2 F 98 Weight Weight 151 lb 10.848 oz Most Recent Monitor Data Heart Rate from ECG 126 NIBP 98/72 NIBP BP-Mean 80 Respiration from ECG 16 SpO2 95 I&O: 02/25/19 02/26/19 02/27/19 06:59 06:59 06:59 Intake Total 2694 4215 Output Total 2100 800 Balance 594 3415 Result Diagrams: 02/25/19 17:00 02/26/19 06:10 Additional Labs: Accuchecks 02/26/19 02/25/19 02/25/19 06:48 23:27 10:26 POC Glucose 187 H 155 H 180 H Hospitalist ROS - Medication Medications: Active Medications Generic Name Dose Route Start Last Admin Trade Name Freq PRN Reason Stop Dose Admin Famotidine 20 mg 02/22/19 21:00 02/25/19 19:20 Pepcid SLOW IVP 20 mg Q12HR CAN Administration Sodium Chloride 1,000 mls @ 150 mls/hr 02/22/19 17:45 02/26/19 03:42 Normal Saline 0.9% IV 1,000 mls .Q6H40M CAN Administration Levetiracetam 500 mg/ Device 100 mls @ 200 mls/hr 02/23/19 21:00 02/25/19 20: 52 IVPB 100 mls BID CAN Administration Amiodarone HCl 450 mg/ 259 mls @ 0 mls/hr 02/25/19 17:45 02/26/19 00:44 Dextrose/Water IVPB 259 mls INF CAN Administration Protocol Per Protocol Potassium Chloride 40 meq/ 270 mls @ 135 mls/hr 02/25/19 17:45 02/26/19 00:56 Sodium Chloride IVPB 270 mls ASDIR PRN Administration FOR SERUM K+ 2.5 - 3.5 Diltiazem HCl 125 mg/ 125 mls @ 5 mls/hr 02/25/19 19:00 02/25/19 19:13 Miscellaneous Medication 1 IVPB 125 mls each/ Sodium Chloride INF CAN Administration Protocol Insulin Human Lispro 0 units 02/22/19 14:44 02/26/19 06:52 Humalog SC 2 unit .MILD SLIDING SCALE PRN Administration Mild Correctional Scale Lorazepam 2 mg 02/22/19 13:54 02/22/19 16:20 Ativan SLOW IVP 2 mg Q1H PRN Administration Seizures Morphine Sulfate 4 mg 02/22/19 13:45 02/22/19 16:05 Morphine SLOW IVP 4 mg Q4H PRN Administration Chest Pain - Exam Neck: no JVD Heart: irregular Heart - other findings: tachy Respiratory: CTAB Gastrointestinal: soft, non-tender, normal bowel sounds Extremities: no edema Hosp A/P (1) Encephalopathy acute Code(s): G93.40 - ENCEPHALOPATHY, UNSPECIFIED Status: Acute (2) Hypotension Status: Acute Qualifiers: Hypotension type: postprocedural hypotension Qualified Code(s): I95.81 - Postprocedural hypotension (3) 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 Code(s): G40.211 - LOCAL-REL SYMPTC EPI W CMPLX PARTIAL SEIZ, NTRCT, W STAT EPI Status: Acute (4) NSTEMI (non-ST elevated myocardial infarction) Code(s): I21.4 - NON-ST ELEVATION (NSTEMI) MYOCARDIAL INFARCTION Status: Acute (5) DM (diabetes mellitus) Code(s): E11.9 - TYPE 2 DIABETES MELLITUS WITHOUT COMPLICATIONS Status: Chronic Qualifiers: Diabetes mellitus type: type 2 Diabetes mellitus correction insulin use: without correction use Diabetes mellitus complication status: with neurologic complications Diabetes mellitus complication detail: with polyneuropathy Qualified Code(s): E11.42 - Type 2 diabetes mellitus with diabetic polyneuropathy (6) HLD (hyperlipidemia) Code(s): E78.5 - HYPERLIPIDEMIA, UNSPECIFIED Status: Chronic Qualifiers: Hyperlipidemia type: unspecified Qualified Code(s): E78.5 - Hyperlipidemia , unspecified (7) HTN (hypertension) Code(s): I10 - ESSENTIAL (PRIMARY) HYPERTENSION Status: Chronic Qualifiers: Hypertension type: essential hypertension Qualified Code(s): I10 - Essential (primary) hypertension (8) Hypokalemia Code(s): E87.6 - HYPOKALEMIA Status: Acute (9) Atrial fibrillation with rapid ventricular response Code(s): I48.91 - UNSPECIFIED ATRIAL FIBRILLATION Status: Acute - Plan cont iv amipdarone cont iv cardizem' replace K+ discuss with cardiology- Cardioversion? discuss wuth NS- Shunt?
--- NOTE | 2019-02-26 07:30 | PRG ---
DATE OF SERVICE: 02/26/2019 I saw, Cristobal Godinez in ICU room this morning. Yesterday, he went for a lumbar puncture and on return had atrial fibrillation with rapid ventricular response. He has a low potassium. These things are being controlled with replacements and amiodarone. Neurologically he is relatively unchanged. I do not see any fevers recorded overnight. Blood pressures have been in the 90s to 130s with heart rates in the 126-130 range. On examination, Mr. Godinez has his eyes open. He says 1-3 words at a time and then stops talking. He stares. He follows me with his eyes through the room. He follows commands in all 4 extremities. He is bit weaker in the right leg than the left. His cerebrospinal fluid has 51 white cells, higher than expected, most of which are lymphocytes. Both glucose and protein are high, although not unduly so. Gram stain is negative for organisms and cultures are pending. We will continue to follow up Mr. Godinez during his hospital stay. If his cerebrospinal fluid proves non-infectious, his cardiac issues are settled, we can consider putting in a cerebrospinal fluid diversion device, if that is the family's request later during his hospitalization. I would not anticipate this over the weekend, but rather sometime early next week. Job ID: [id number] [facility]
[2019-02-26 07:51] LABS: Anion Gap 16 mmol/L (10-20); BUN (Urea Nitrogen) 20 mg/dL (8.4-25.7); Calc. Creatinine Clearance 64 mL/min (70-130); Calcium 8.6 mg/dL (7.8-10.44); Carbon Dioxide 15 mmol/L (23-31); Chloride 115 mmol/L (98-107); Estimated GFR-MDRD 80; Glucose 204 mg/dL (83-110); Potassium 3.5 mmol/L (3.5-5.1); Sodium 142 mmol/L (136-145)
--- NOTE | 2019-02-26 08:36 | PRG ---
DATE OF SERVICE: 02/26/2019 SUBJECTIVE: This morning, still encephalopathic, but better. His lumbar puncture shows normal protein and glucose, and wbc's and rbc's are elevated probably from traumatic lumbar puncture. OBJECTIVE: VITAL SIGNS: His saturations are 95% on room air, blood pressure 119/83, pulse 120 and irregular, and respirations 18. CHEST: Decreased breath sounds. No wheezing. CARDIAC: Normal S1 and S2. No gallops. LABORATORY DATA: Lytes are normal. Troponin slightly elevated. ASSESSMENT: Supraventricular tachycardia, encephalopathy, and hydrocephalus. Start nutrition today, hopefully. PLAN: Continue supportive care. As noted, try nutrition and PT. DVT prophylaxis, left leg is completely clotted off. Job ID: [id number]
[2019-02-26] MEDS ORDERED: Enoxaparin Sodium 40 MG/0.4 ML SYRINGE SC SCH (09:00)
[2019-02-26] MEDS ORDERED: Digoxin 0.5 MG/2 ML AMP SLOW IVP SCH (09:30)
[2019-02-26] MEDS: Famotidine/PF 20 mg/2ml Vial SLOW IVP SCH ×2 (10:34→20:13)
--- NOTE | 2019-02-26 11:56 | RAD ---
XR Abdomen 1 View/KUB CLINICAL INDICATION: NG tube verification FINDINGS: There is mild patchy left basilar density. Dobbhoff feeding tube is seen, with metallic stylette overlying the medial left upper quadrant. There is a visualized nonspecific bowel gas pattern. Multiple metallic clips overlie the right lower to mid abdomen. IMPRESSION: Dobbhoff feeding tube with metallic stylette overlying the medial left upper quadrant..
[2019-02-26 14:25] LABS: Hemoglobin 13.8 g/dL (14.0-18.0); Platelet Count 160 thou/uL (130-400)
--- NOTE | 2019-02-26 17:52 | PRG ---
DATE OF SERVICE: SUBJECTIVE: Mr. Godinez this morning continued to be in AFib with RVR. He was placed on Lovenox in addition to Cardizem and amiodarone. He has since converted to sinus rhythm. He appears to be more alert today versus yesterday. So far, blood cultures have been negative. OBJECTIVE: VITAL SIGNS: Blood pressure 119/74, pulse 76, respirations 20. LUNGS: Clear to auscultation. HEART: Regular rate and rhythm. ABDOMEN: Soft, nontender, and nondistended. EXTREMITIES: No edema. LABORATORY DATA: Hemoglobin 13.8 and hematocrit 40.6. Followup troponin 0.488. IMPRESSION: 1. Mental status changes. 2. Elevated troponin. 3. Seizure disorder. RECOMMENDATIONS: At this point, we would have no further recommendation. We will continue a conservative approach. I do not feel his current demise was related to a primary cardiac issue. His elevated troponin is likely type 2 [place] secondary to recent seizure. He does have a DVT present and per recent history has an IVC filter. From my standpoint, I have no further recommendations. Job ID: [id number]
[2019-02-26] MEDS ORDERED: Enoxaparin Sodium 80 MG/0.8 ML SYRINGE SC SCH (21:00)
--- NOTE | 2019-02-26 23:43 | EKG ---
Test Reason : Blood Pressure : / mmHG Vent. Rate : 155 BPM Atrial Rate : 136 BPM P-R Int : 000 ms QRS Dur : 136 ms QT Int : 338 ms P-R-T Axes : 000 -78 048 degrees QTc Int : 543 ms Undetermined rhythm Left axis deviation Right bundle branch block Abnormal ECG When compared with ECG of 22-FEB-2019 13:12, Current undetermined rhythm precludes rhythm comparison, needs review QRS duration has decreased T wave inversion now evident in Anterior leads Confirmed by Caterina CLEVELAND ([id number]) on 02/26/2019 11:42:53 PM Referred By: [facility] Confirmed By:Caterina CLEVELAND
[2019-02-27] MEDS: Sodium Chloride 0.9% 1,000 ML IV SCH ×2 (04:29→08:04)
[2019-02-27] MEDS: HumaLOG 300 UNITS/3 ML VIAL SC PRN ×2 (04:29→09:59)
--- NOTE | 2019-02-27 07:17 | PRG ---
DATE OF SERVICE: 02/27/2019 I saw Cristobal Godinez in his ICU bed this morning. No events were reported overnight. One of the blood cultures is now positive. There has been no fever recorded. Blood pressures have been 130s to 140s and stable. When I see Mr. Godinez in his bed this morning, his eyes are open. He says 1 to 3 words very quietly and then stops responding. He has to be stimulated again to respond. He follows commands by squeezing his right hand. He wiggles his toes. His right toes do not move as much as the left side, but he does move them. It is hard to tell if he expresses understanding to my discussion. He still has a leukocytosis. His sodium yesterday was 142 and coag-negative staph is growing out of 1 of 2 blood cultures. His CSF culture is pending. We will continue to follow Mr. Godinez' neurological examination over the weekend. I do not see any improvement in his level of interaction after a diagnostic lumbar puncture. 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 He may require shunting, but I do not want to put a shunt in an infected ventricular system. Job ID: [id number]
[2019-02-27] MEDS: Aspirin 81 mg Enteric Coated Tablet PO SCH (08:24)
[2019-02-27] MEDS: Famotidine/PF 20 mg/2ml Vial SLOW IVP SCH ×2 (08:25→20:00)
[2019-02-27] MEDS: Enoxaparin Sodium 40 MG/0.4 ML SYRINGE SC SCH (08:26)
--- NOTE | 2019-02-27 08:50 | PRG ---
DATE OF SERVICE: 02/27/2019 SUBJECTIVE: Cristobal Godinez this morning remains encephalopathic. OBJECTIVE: VITAL SIGNS: Pulse is 95, blood pressure 140/100, saturations are 99%, and respiratory rate is 22. His I's and O's are consistently even. His maximum temperature has been 97. CHEST: Decreased breath sounds. No wheezing. CARDIAC: Normal S1 and S2. No gallops. ABDOMEN: No masses. ASSESSMENT: 1. Encephalopathy. 2. Hydrocephalus. 3. Supraventricular tachycardia. 4. Seizure disorder. 5. Status post lumbar puncture. I do not see any evidence of any infection. Neurosurgery was concerned about putting a shunt. PLAN: Pulmonary russ, continue supportive care. He is on no antibiotics. We will follow. Job ID: [id number]
[2019-02-27 10:19] LABS: Anion Gap 12 mmol/L (10-20); BUN (Urea Nitrogen) 16 mg/dL (8.4-25.7); BUN/Creatinine Ratio 16.67; Calc. Creatinine Clearance 59 mL/min (70-130); Calcium 8.6 mg/dL (7.8-10.44); Carbon Dioxide 26 mmol/L (23-31); Chloride 107 mmol/L (98-107); Estimated GFR-MDRD 76; Glucose 190 mg/dL (83-110); Sodium 142 mmol/L (136-145)
[2019-02-27 10:24] LABS: Phosphorus 1.2 mg/dL (2.3-4.7); Potassium 2.7 mmol/L (3.5-5.1)
[2019-02-27] MEDS: PHOS-NAK 1 PKT PACK PO PRN ×2 (10:31→19:52)
--- NOTE | 2019-02-27 14:00 | PRG ---
DATE OF SERVICE: 02/27/2019 SUBJECTIVE: Mr. Godinez' mental status has been unchanged. No new symptoms. He has not had recurrent episodes of atrial fibrillation. IV amiodarone has been discontinued. OBJECTIVE: VITAL SIGNS: Blood pressure 113/77, pulse 78, temperature afebrile. LUNGS: Clear to auscultation. HEART: Regular rate and rhythm. ABDOMEN: Soft, nontender, nondistended. EXTREMITIES: No edema. PERTINENT LABORATORY DATA: Potassium 2.7, sodium 142, creatinine 0.96. Phosphorus 1.2. RECOMMENDATIONS: Mr. Godinez has an echo Doppler showed LVEF of 40% to 45%. This is likely chronic. His most recent episode and demise did not appear to be related to underlying dysrhythmia or acute coronary syndrome. At this point, we will continue with medical therapy. I did discontinue IV amiodarone and added aspirin, beta-neha therapy, and statin therapy. From my standpoint, I have no further recommendations. Dr. Rudd will be on-call this weekend and will be available for questions if needed. Job ID: [id number]
--- NOTE | 2019-02-27 14:53 | PDOC.HOSPP ---
- Subjective Encounter Date: 02/27/19 Encounter Time: 14:51 Subjective: 78 y/o male with HTN, DM, DVT on anticoagulation admitted with seizure and AMS. Patient is non conversational and soft restrains are in place - Objective Vital Signs & Weight: Vital Signs (12 hours) Temp Pulse Ox 02/27/19 12:00 98.1 F 02/27/19 08:28 98 02/27/19 07:15 99 02/27/19 07:00 97.5 F L 02/27/19 04:00 97.5 F L Weight Admit Weight 155 lb Weight 145 lb 15.136 oz Most Recent Monitor Data Heart Rate from ECG 75 NIBP 126/72 NIBP BP-Mean 90 Respiration from ECG 0 SpO2 100 I&O: 02/26/19 02/27/19 02/28/19 06:59 06:59 06:59 Intake Total 4215 4939 33 Output Total 1050 4200 1785 Balance 3166 393 -1367 Result Diagrams: 02/26/19 14:03 02/27/19 09:56 Additional Labs: Accuchecks 02/27/19 02/27/19 02/26/19 09:43 04:29 22:07 POC Glucose 211 H 204 H 156 H 02/26/19 16:44 POC Glucose 184 H Hospitalist ROS - Medication Medications: Active Medications Generic Name Dose Route Start Last Admin Trade Name Freq PRN Reason Stop Dose Admin Aspirin 81 mg 02/27/19 09:00 02/27/19 08:24 Ecotrin PO 81 mg DAILY CAN Administration Enoxaparin Sodium 40 mg 02/27/19 09:00 02/27/19 08:26 Lovenox SC 40 mg 0900 CAN Administration Famotidine 20 mg 02/22/19 21:00 02/27/19 08:25 Pepcid SLOW IVP 20 mg Q12HR CAN Administration Levetiracetam 500 mg/ Device 100 mls @ 200 mls/hr 02/23/19 21:00 02/27/19 09: 32 IVPB 100 mls BID CAN Administration Potassium Chloride 40 meq/ 270 mls @ 135 mls/hr 02/25/19 17:45 02/26/19 00:56 Sodium Chloride IVPB 270 mls ASDIR PRN Administration FOR SERUM K+ 2.5 - 3.5 Diltiazem HCl 125 mg/ 125 mls @ 5 mls/hr 02/25/19 19:00 02/25/19 19:13 Miscellaneous Medication 1 IVPB 125 mls each/ Sodium Chloride INF CAN Administration Protocol Insulin Human Lispro 0 units 02/22/19 14:44 02/27/19 09:59 Humalog SC 3 unit .MILD SLIDING SCALE PRN Administration Mild Correctional Scale Lorazepam 2 mg 02/22/19 13:54 02/22/19 16:20 Ativan SLOW IVP 2 mg Q1H PRN Administration Seizures Metoprolol Succinate 37.5 mg 02/27/19 09:00 02/27/19 08:24 Toprol Xl PO 37.5 mg DAILY CAN Administration Miscellaneous Medication 1 pkt 02/25/19 17:45 02/27/19 10:31 Phos-Nak PO 1 pkt TIDPRN PRN Administration FOR PHOS LEVEL 1.0 - 1.8 Morphine Sulfate 4 mg 02/22/19 13:45 02/22/19 16:05 Morphine SLOW IVP 4 mg Q4H PRN Administration Chest Pain Potassium Chloride 40 meq 02/25/19 17:45 02/27/19 10:31 Klor-Con PER TUBE 40 meq ASDIR PRN Administration FOR SERUM K+ 2.5-3.5 Sodium Chloride 10 ml 02/26/19 09:00 02/27/19 08:26 Flush - Normal Saline IVF 10 ml Q12HR CAN Administration - Exam General Appearance: awake alert Eye: anicteric sclera ENT: normocephalic atraumatic Neck: no JVD Heart: RRR Respiratory: no wheezes, no rales, no ronchi Respiratory - other findings: fair air entry biklaterally Gastrointestinal: soft, non-tender, non-distended, normal bowel sounds Extremities: no edema Neurological: cranial nerve grossly intact Hosp A/P (1) Encephalopathy acute Code(s): G93.40 - ENCEPHALOPATHY, UNSPECIFIED Status: Acute (2) NSTEMI (non-ST elevated myocardial infarction) Code(s): I21.4 - NON-ST ELEVATION (NSTEMI) MYOCARDIAL INFARCTION Status: Acute (3) Atrial fibrillation with rapid ventricular response Code(s): I48.91 - UNSPECIFIED ATRIAL FIBRILLATION Status: Acute (4) Hypophosphatemia Code(s): E83.39 - OTHER DISORDERS OF PHOSPHORUS METABOLISM Status: Acute (5) Seizure disorder Code(s): G40.909 - EPILEPSY, UNSP, NOT INTRACTABLE, WITHOUT STATUS EPILEPTICUS Status: Acute (6) Metabolic acidosis Code(s): E87.2 - ACIDOSIS Status: Acute (7) Positive blood culture Code(s): R78.81 - BACTEREMIA Status: Acute (8) Hypokalemia Code(s): E87.6 - HYPOKALEMIA Status: Acute (9) DM (diabetes mellitus) Code(s): E11.9 - TYPE 2 DIABETES MELLITUS WITHOUT COMPLICATIONS Status: Chronic Qualifiers: Diabetes mellitus type: type 2 Diabetes mellitus longterm insulin use: without termite renewal inspector use Diabetes mellitus complication status: with neurologic complications Diabetes mellitus complication detail: with polyneuropathy Qualified Code(s): E11.42 - Type 2 diabetes mellitus with diabetic polyneuropathy (10) HTN (hypertension) Code(s): I10 - ESSENTIAL (PRIMARY) HYPERTENSION Status: Chronic Qualifiers: Hypertension type: essential hypertension Qualified Code(s): I10 - Essential (primary) hypertension (11) Hx pulmonary embolism Code(s): Z86.711 - PERSONAL HISTORY OF PULMONARY EMBOLISM Status: Chronic - Plan DC NS due to hyperchloremic acidosis Replete serum potassium and phosp with potassium phosphorus Continue supportive care. Awaiting CSF culture. Positive blood culture with coag neg staph considered contaminant Repeat renal function panel, CBC and magnesium in the am.
[2019-02-27] MEDS ORDERED: Potassium Phosphate 30 MMOL in Sodium Chloride 0.9% 500 ML IVPB SCH (15:00)
[2019-02-27] MEDS: Atorvastatin Calcium 20 MG TAB PO SCH (20:00)
[2019-02-28] MEDS: HumaLOG 300 UNITS/3 ML VIAL SC PRN ×2 (04:06→15:52)
[2019-02-28 07:00] LABS: #Lymphocytes 0.7 thou/uL (1.20-3.40); #Monocytes 1.2 thou/uL (0.11-0.59); #Neutrophils 9.9 thou/uL (1.40-6.50); %Basophils 0.1 % (0.0-1.0); %Eosinophils 0.3 % (0.0-10.0); %Lymphocytes 5.5 % (21.0-51.0); %Monocytes 10.4 % (0.0-10.0); %Neutrophils 83.7 % (42.0-75.0); Mean Corpuscular HGB CONC 34.6 g/dL (32.0-36.0); Mean Corpuscular Hemoglobin 32.2 pg (27.0-31.0); Mean Corpuscular Volume 93.2 fL (78.0-98.0); Mean Platelet Volume 9.2 fL (7.4-10.4); Platelet Count 170 thou/uL (130-400); RBC Distribution Width 11.9 % (11.5-14.5); Red Blood Cell (RBC) Count 4.64 mill/uL (4.70-6.10); White Blood Cell (WBC) Count 11.8 thou/uL (4.8-10.8)
[2019-02-28 07:25] LABS: Albumin 3.2 g/dL (3.4-4.8); Anion Gap 14 mmol/L (10-20); BUN (Urea Nitrogen) 15 mg/dL (8.4-25.7); BUN/Creatinine Ratio 15.46; Calc. Creatinine Clearance 59 mL/min (70-130); Carbon Dioxide 27 mmol/L (23-31); Chloride 105 mmol/L (98-107); Estimated GFR-MDRD 75; Glucose 127 mg/dL (83-110); Magnesium 1.7 mg/dL (1.6-2.6); Phosphorus 2.5 mg/dL (2.3-4.7); Potassium 2.7 mmol/L (3.5-5.1); Sodium 143 mmol/L (136-145)
[2019-02-28] MEDS: Potassium Chloride 40 MEQ in Sodium Chloride 0.9% 250 ML 250 ML IVPB PRN (08:12)
[2019-02-28] MEDS: Famotidine/PF 20 mg/2ml Vial SLOW IVP SCH ×2 (08:23→20:22)
[2019-02-28] MEDS: Aspirin 81 mg Enteric Coated Tablet PO SCH (08:23)
[2019-02-28] MEDS: Enoxaparin Sodium 40 MG/0.4 ML SYRINGE SC SCH (08:24)
--- NOTE | 2019-02-28 08:47 | RAD ---
Abdomen one view HISTORY: Dobbhoff feeding catheter placement COMPARISON: 02/26/2019. FINDINGS: Single view of the upper abdomen. Lower abdomen not included. Visualized bowel gas pattern nonspecific. Metallic clips over the right abdomen. Inferior vena cava filter apparent. Metallic tip associated with the Dobbhoff feeding tube overlies the gastric antrum, directed towards the pylorus.
[2019-02-28 11:12] LABS: Potassium 2.8 mmol/L (3.5-5.1)
--- NOTE | 2019-02-28 11:36 | PRG ---
DATE OF SERVICE: 02/28/2019 Mr. Godinez remains stable overnight. Vital signs show blood pressure 131/85, pulse rate of 88. Saturations are normal. His respiratory rate is 24. He awakens, but could not get him to verbalize. He was apparently following some commands with other people's prompting. His face appears to be symmetric. He is moving both upper extremities as well as lower extremities. No abnormal movements were seen. His EEG showed brief intervals of normal background with superimposed slowing seen over both hemispheres. No epileptiform features are present. Laboratory studies, unremarkable CBC and basic metabolic panel. Uncertain as to why he remains lethargic and poorly responsive. I am going to discontinue the Keppra to rule out the possibility of a reaction to the medication. I will monitor him for further seizures and consider other anticonvulsants if necessary. Job ID: [id number]
[2019-02-28] MEDS ORDERED: Magnesium Sulfate 2 GM in Sodium Chloride 0.9% 100 ML IVPB SCH (11:45)
[2019-02-28] MEDS ORDERED: Magnesium 2 GM/50 ML 2 GM in Premix Bag 1 BAG IVPB SCH (11:45)
--- NOTE | 2019-02-28 11:55 | PDOC.HOSPP ---
- Subjective Encounter Date: 02/28/19 Encounter Time: 10:00 Subjective: The patient is unable to communicate. When asked how he was, he shrugged his shoulders. He is able to name his and daughter. . Per , patient hasn't been able to speak since the seizure. Had one seizure two months ago and another one on the day of admission. Neurologist plans to stop keppra and see if that helps. - Objective Vital Signs & Weight: Vital Signs (12 hours) Temp Pulse Ox 02/28/19 07:08 100 02/28/19 07:00 99.0 F 02/28/19 04:00 98.9 F 02/28/19 00:00 99.4 F Weight Admit Weight 155 lb Weight 146 lb 13.246 oz Most Recent Monitor Data Heart Rate from ECG 90 NIBP 131/85 NIBP BP-Mean 100 Respiration from ECG 20 SpO2 99 I&O: 02/27/19 02/28/19 03/01/19 06:59 06:59 06:59 Intake Total 4932 2587 Output Total 4200 3680 590 Balance 739 -1093 -590 Result Diagrams: 02/28/19 06:41 02/28/19 10:54 Additional Labs: Accuchecks 02/28/19 02/27/19 02/27/19 04:07 21:04 15:59 POC Glucose 257 H 174 H 79 Hospitalist ROS - Review of Systems ROS unobtainable: due to mental status - Medication Medications: Active Medications Generic Name Dose Route Start Last Admin Trade Name Freq PRN Reason Stop Dose Admin Aspirin 81 mg 02/27/19 09:00 02/28/19 08:23 Ecotrin PO 81 mg DAILY CAN Administration Atorvastatin Calcium 20 mg 02/27/19 21:00 02/27/19 20:00 Lipitor PO 20 mg HS CAN Administration Enoxaparin Sodium 40 mg 02/27/19 09:00 02/28/19 08:24 Lovenox SC 40 mg 0900 CAN Administration Famotidine 20 mg 02/22/19 21:00 02/28/19 08:23 Pepcid SLOW IVP 20 mg Q12HR CAN Administration Potassium Chloride 40 meq/ 270 mls @ 135 mls/hr 02/25/19 17:45 02/28/19 08:12 Sodium Chloride IVPB 270 mls ASDIR PRN Administration FOR SERUM K+ 2.5 - 3.5 Magnesium Sulfate 1 gm/ Sodium 102 mls @ 102 mls/hr 02/25/19 17:45 02/27/19 20:06 Chloride IV 102 mls PRN PRN Administration MAG LEVEL 1.4 - 2.0 Diltiazem HCl 125 mg/ 125 mls @ 5 mls/hr 02/25/19 19:00 02/25/19 19:13 Miscellaneous Medication 1 IVPB 125 mls each/ Sodium Chloride INF CAN Administration Protocol Insulin Human Lispro 0 units 02/22/19 14:44 02/28/19 04:06 Humalog SC 4 unit .MILD SLIDING SCALE PRN Administration Mild Correctional Scale Lorazepam 2 mg 02/22/19 13:54 02/22/19 16:20 Ativan SLOW IVP 2 mg Q1H PRN Administration Seizures Metoprolol Succinate 37.5 mg 02/27/19 09:00 02/28/19 08:23 Toprol Xl PO 37.5 mg DAILY CAN Administration Miscellaneous Medication 1 pkt 02/25/19 17:45 02/27/19 19:52 Phos-Nak PO 1 pkt TIDPRN PRN Administration FOR PHOS LEVEL 1.0 - 1.8 Morphine Sulfate 4 mg 02/22/19 13:45 02/22/19 16:05 Morphine SLOW IVP 4 mg Q4H PRN Administration Chest Pain Potassium Chloride 40 meq 02/25/19 17:45 02/27/19 10:31 Klor-Con PER TUBE 40 meq ASDIR PRN Administration FOR SERUM K+ 2.5-3.5 Sodium Chloride 10 ml 02/26/19 09:00 02/28/19 08:24 Flush - Normal Saline IVF 10 ml Q12HR CAN Administration - Exam General Appearance: NAD, awake alert Eye: PERRL, anicteric sclera ENT: normocephalic atraumatic ENT - other findings: NG tube in place Neck: supple, symmetric Heart: RRR, no murmur, no gallops Respiratory: CTAB, no wheezes, no rales Gastrointestinal: soft, non-tender, non-distended Neurological: cranial nerve grossly intact, normal sensation to touch, no weakness Neurological - other findings: Seems to have 4/5 strength on RUE, 5/5 on left. Moves LE but poor effort Musculoskeletal: normal tone Hosp A/P - Plan Abd X ray 02/28: Dobhuff tube in place Brain MRI 02/23: NPH Brain CT: possible NPH? Venous doppler: occlusive thrombus LLE Chest X ray 02/25: cardiomegaly This is a 78 year old male with PMH of Hypertension, diabetes mellitus, diabetic neuropathy, hyperlipidemia, chronic pain, osteoarthritis, and blood clots who presented with altered mental status after seizure #Seizure #Acute metabolic encephalopathy post seizure #NPH - was placed on IV keppra, but stopping due to encephalopathy - monitor for further seizures - CT head and brain MRI show possible NPH? Will discuss with neurology - EEG showed diffuse slowing - LP showed no infection Hypokalemia - potassium 2.7, replacing IV potassium. Repeat potassium still 2.8. Will repeat in evening #NSTEMI possibly type II - troponins elevated, cardiology stated conservative management. Last trop 0.488. ECHO done, results not read yet? - on aspirin, statin, beta neha - s/p heparin drip Atrial fibrillation - off rate control meds, was on diltiazem and amiodarone drip - on lovenox DVT LLE - has IVC filter -on xarelto at home Leukocytosis - WBC 11.8, downtrending. WIll monitor Disposition: see how patient does off keppra, transfer to floor if no seizures Diet: tube feeds DVT prophylaxis: lovenox
--- NOTE | 2019-02-28 11:56 | PRG ---
DATE OF SERVICE: 02/28/2019 SERVICE: Pulmonary Medicine. INTERVAL HISTORY: The patient's mentation is improving ever so slightly. There has been no change to his condition otherwise. Denies any current fevers or chills. He is following some simple commands, but slow to respond. Otherwise, there has been no interval change to his condition. PHYSICAL EXAMINATION: VITAL SIGNS: Afebrile, pulse 90, blood pressure 131/85, respirations 20, and saturation 99%, currently on room air. GENERAL: The patient is awake and alert, in no apparent distress. LUNGS: Good air entry bilaterally. I do not appreciate a prolonged expiratory phase or wheezing. HEART: Normal rate and regular. ABDOMEN: Soft, nontender, nondistended. Bowel sounds are positive. MUSCULOSKELETAL: No cyanosis or clubbing. There is no pitting in the bilateral lower extremities. NEUROLOGIC: Grossly nonfocal. LABORATORY DATA: WBC 11.8, hemoglobin 15.0, and platelets 170,000. Potassium 2.8, ammonia is less than assay limit of 12, albumin 3.2. Liver function studies are otherwise unremarkable. Magnesium and phosphorous are within the lower limits of normal. Urinalysis is unremarkable. CSF is positive for significant neutrophils. Total protein, glucose are elevated. CSF nucleated cells are 51, though red blood cells are 3500. Coag-negative staph is growing 1/2 blood cultures, otherwise all cultures are unremarkable. IMAGING: Abdominal x-ray demonstrates good position for enteric catheter. ASSESSMENT: 1. Encephalopathy of undetermined etiology, CSF studies pending. 2. Hydrocephalus. 3. Ventricular tachycardia, resolved. 4. Seizure, resolved. DISCUSSION AND PLAN: The patient is doing fine from a mentation standpoint. Supportive measures will be continued. At this point, he is stable for transition out of the ICU to the medical unit. We will replace potassium and magnesium today. Please call with additional questions or concerns through time. At this point, he certainly did not have any impending respiratory difficulties. Job ID: [id number]
[2019-02-28] MEDS: Atorvastatin Calcium 20 MG TAB PO SCH (20:22)
[2019-03-01 05:05] LABS: #Eosinphils 0.1 thou/uL (0.0-0.7); #Lymphocytes 0.6 thou/uL (1.20-3.40); #Monocytes 1.1 thou/uL (0.11-0.59); #Neutrophils 8.5 thou/uL (1.40-6.50); %Basophils 0.3 % (0.0-1.0); %Eosinophils 0.7 % (0.0-10.0); %Lymphocytes 5.6 % (21.0-51.0); %Neutrophils 82.4 % (42.0-75.0); Hemoglobin 14.1 g/dL (14.0-18.0); Mean Corpuscular HGB CONC 34.4 g/dL (32.0-36.0); Mean Corpuscular Hemoglobin 32.5 pg (27.0-31.0); Mean Corpuscular Volume 94.6 fL (78.0-98.0); Platelet Count 155 thou/uL (130-400); RBC Distribution Width 11.9 % (11.5-14.5); Red Blood Cell (RBC) Count 4.34 mill/uL (4.70-6.10); White Blood Cell (WBC) Count 10.3 thou/uL (4.8-10.8)
[2019-03-01 05:21] LABS: Anion Gap 13 mmol/L (10-20); BUN (Urea Nitrogen) 19 mg/dL (8.4-25.7); Calc. Creatinine Clearance 50 mL/min (70-130); Calcium 8.9 mg/dL (7.8-10.44); Carbon Dioxide 29 mmol/L (23-31); Chloride 104 mmol/L (98-107); Estimated GFR-MDRD 62; Glucose 243 mg/dL (83-110); Potassium 3.5 mmol/L (3.5-5.1); Sodium 142 mmol/L (136-145)
[2019-03-01] MEDS: HumaLOG 300 UNITS/3 ML VIAL SC PRN ×2 (06:29→19:21)
--- NOTE | 2019-03-01 07:35 | RAD ---
Abdomen one view HISTORY: Feeding tube placement. COMPARISON: 02/28/2019. FINDINGS: Visualized bowel gas pattern of the left upper quadrant is unremarkable. Metallic tip of th e Dobbhoff feeding catheter overlies the gastric body, directed towards the gastric antrum. It has been pulled back slightly since the most recent exam. Lower abdomen is not included on the image.
[2019-03-01] MEDS: Aspirin 81 mg Enteric Coated Tablet PO SCH (08:55)
[2019-03-01] MEDS: Enoxaparin Sodium 40 MG/0.4 ML SYRINGE SC SCH (09:00)
[2019-03-01] MEDS: Famotidine/PF 20 mg/2ml Vial SLOW IVP SCH ×2 (09:01→21:11)
--- NOTE | 2019-03-01 10:26 | RAD ---
Abdomen one view HISTORY: Dobbhoff tube reposition. COMPARISON: Earlier exam on the same date. FINDINGS: Catheter has been withdrawn somewhat. Metallic tip is at the expected location of the gastr ic cardia (upper stomach). There is not redundancy of the catheter within the distal esophagus. The proximal esophagus and posterior pharynx are not visualized. Visualized bowel gas pattern is nonspecific. Right lateral abdomen and pelvis are not included on the image.
[2019-03-01] MEDS ORDERED: Metoprolol Tartrate 25 MG TAB PER TUBE SCH (12:15)
--- NOTE | 2019-03-01 14:38 | ULT ---
Venous duplex sonogram right upper extremity HISTORY: Right arm pain and edema. FINDINGS: Good color and spectral Doppler flow are present within the right internal jugular and subc lavian veins, the right axillary, brachial, and basilic veins. The cephalic vein is incompletely compressible in the lower arm. IMPRESSION: Superficial thrombus within the distal cephalic vein. No evidence of deep venous thrombus of the left upper extremity.
--- NOTE | 2019-03-01 17:57 | PRG ---
DATE OF SERVICE: 03/01/2019 SERVICE: Pulmonary medicine. INTERVAL HISTORY: The patient is doing really well from respiratory standpoint. Mentation russ, he still remains a little bit sleepy. There has been no interval change to his condition otherwise. There were no overnight events or fevers. For some reason, his feeds are running at 240 mL an hour. I went ahead and paused this, and discussed it with nursing staff. PHYSICAL EXAMINATION: VITAL SIGNS: Afebrile with a T-max of 99.2. Pulse 72, blood pressure 128/81, respirations 20, saturation 92% on 2 L nasal cannula. GENERAL: The patient is awake and alert, in no apparent distress. LUNGS: Decent air entry. Rhonchi are present but clear with cough. HEART: Normal rate and regular. ABDOMEN: Soft, nontender, nondistended. Bowel sounds are positive. MUSCULOSKELETAL: No cyanosis or clubbing. There is no pitting in the bilateral lower extremities. NEUROLOGIC: Grossly nonfocal. LABORATORY DATA: WBC 10.3, hemoglobin 14.1, and platelets 155,000. Basic metabolic profile is completely unremarkable. Creatinine 1.14 and it is gently up-trending. Blood sugar ranges from 157 to 243. Magnesium 1.9. IMAGING: Vascular ultrasound demonstrates no evidence of DVT. That being said, there is a superficial thrombosis of the cephalic vein. ASSESSMENT: 1. Encephalopathy of undetermined etiology, CSF studies pending. 2. Ventricular tachycardia, resolved. 3. Seizure, resolved. DISCUSSION AND PLAN: We will continue supportive care while we await the CSF studies. We will continue with mobilization efforts. I will back off on his tube feeds to the appropriate rate. We will repeat laboratories through time. Otherwise, supportive measures will be continued. Job ID: [id number]
[2019-03-01 18:18] LABS: Bacteria/HPF None Seen HPF (None Seen); Bilirubin Negative (Negative); Blood, Urine Trace (Negative); Clarity Clear (Clear); Glucose, Urine (Dipstick) Normal (Negative); Leukocyte Negative Leu/uL (Negative); Nitrite Negative (Negative); Protein, Urine (Dipstick) 50 mg/dL (Neg-Trace); Squamous Epithelial None Seen HPF (0-3); Urobilinogen 12 mg/dL (Less than 2); WBC/HPF 0-3 HPF (0-3)
--- NOTE | 2019-03-01 19:55 | PDOC.HOSPP ---
- Subjective Encounter Date: 03/01/19 Encounter Time: 15:00 Subjective: The patient noted to have decreased mentation today, yesterday was answering some words. Per grand daughter, patient had improvement in mental status with lumbar puncture. Waiting neurology input as to prognosis. Right arm was swollen, IV was removed. Ultrasound shows superficial clot. Repeat UA was done which was clear. Per nursing staff, patient had episode of HR in the 150's PAT. EKG done and showing bundle branch block? Potassium 3.5, 40 meq given - Objective Vital Signs & Weight: Vital Signs (12 hours) Temp Pulse Resp BP Pulse Ox 03/01/19 15:24 99.2 F 72 20 128/81 92 L 03/01/19 11:05 98.8 F 65 20 109/75 93 L 03/01/19 09:00 98.9 F 74 20 112/73 95 03/01/19 08:00 95 Weight Admit Weight 155 lb Weight 141 lb 1.6 oz Most Recent Monitor Data Heart Rate from ECG 88 NIBP 127/84 NIBP BP-Mean 98 Respiration from ECG 15 SpO2 100 I&O: 02/28/19 03/01/19 03/02/19 06:59 06:59 06:59 Intake Total 2587 1890 1130 Output Total 3680 2110 750 Balance -1093 -220 380 Result Diagrams: 03/01/19 04:23 03/01/19 04:23 Additional Labs: Accuchecks 03/01/19 03/01/19 03/01/19 18:02 11:12 06:21 POC Glucose 274 H 147 H 227 H 03/01/19 00:07 POC Glucose 250 H Hospitalist ROS - Review of Systems ROS unobtainable: due to mental status Constitutional: denies: fever, chills Eyes: denies: pain - Medication Medications: Active Medications Generic Name Dose Route Start Last Admin Trade Name Freq PRN Reason Stop Dose Admin Acetaminophen 650 mg 02/22/19 13:46 03/01/19 00:02 Tylenol NM 650 mg Q4H PRN Administration Headache/Fever/Mild Pain (1-3) Aspirin 81 mg 02/27/19 09:00 03/01/19 08:55 Ecotrin PO 81 mg DAILY CAN Administration Atorvastatin Calcium 20 mg 02/27/19 21:00 02/28/19 20:22 Lipitor PO 20 mg HS CAN Administration Enoxaparin Sodium 40 mg 02/27/19 09:00 03/01/19 09:00 Lovenox SC 40 mg 0900 CAN Administration Famotidine 20 mg 02/22/19 21:00 03/01/19 09:01 Pepcid SLOW IVP 20 mg Q12HR CAN Administration Potassium Chloride 40 meq/ 270 mls @ 135 mls/hr 02/25/19 17:45 02/28/19 08:12 Sodium Chloride IVPB 270 mls ASDIR PRN Administration FOR SERUM K+ 2.5 - 3.5 Magnesium Sulfate 1 gm/ Sodium 102 mls @ 102 mls/hr 02/25/19 17:45 02/27/19 20:06 Chloride IV 102 mls PRN PRN Administration MAG LEVEL 1.4 - 2.0 Diltiazem HCl 125 mg/ 125 mls @ 5 mls/hr 02/25/19 19:00 02/25/19 19:13 Miscellaneous Medication 1 IVPB 125 mls each/ Sodium Chloride INF CAN Administration Protocol Insulin Human Lispro 0 units 02/22/19 14:44 03/01/19 19:21 Humalog SC 4 unit .MILD SLIDING SCALE PRN Administration Mild Correctional Scale Lorazepam 2 mg 02/22/19 13:54 02/22/19 16:20 Ativan SLOW IVP 2 mg Q1H PRN Administration Seizures Miscellaneous Medication 1 pkt 02/25/19 17:45 02/27/19 19:52 Phos-Nak PO 1 pkt TIDPRN PRN Administration FOR PHOS LEVEL 1.0 - 1.8 Morphine Sulfate 4 mg 02/22/19 13:45 02/22/19 16:05 Morphine SLOW IVP 4 mg Q4H PRN Administration Chest Pain Potassium Chloride 40 meq 02/25/19 17:45 02/27/19 10:31 Klor-Con PER TUBE 40 meq ASDIR PRN Administration FOR SERUM K+ 2.5-3.5 Sodium Chloride 10 ml 02/26/19 09:00 03/01/19 09:01 Flush - Normal Saline IVF 10 ml Q12HR CAN Administration - Exam General - other findings: Appears drowsy, opens eyes to commands, but difficulty speaking Eye: PERRL, anicteric sclera ENT: normocephalic atraumatic Neck: no JVD Heart: RRR, no murmur, no gallops, no rubs Respiratory: CTAB, no wheezes, no rales, no ronchi Gastrointestinal: soft, non-tender, non-distended Extremities: no cyanosis, no clubbing, no edema Extremities - other findings: RLE warm and swollen to palpation. Patient has tenderness to palpation Skin: normal turgor, no lesions, no rashes Neurological: cranial nerve grossly intact, normal sensation to touch, no focal deficits, no new deficit Musculoskeletal - other findings: Left foot slightly tender to touch. Onychomycosis noted Psychiatric: lethargic Hosp A/P - Plan Abd X ray 02/28: Dobhuff tube in place Brain MRI 02/23: NPH Brain CT: possible NPH? Venous doppler: occlusive thrombus LLE Chest X ray 02/25: cardiomegaly Venous US RUE: superficial thrombus This is a 78 year old male with PMH of Hypertension, diabetes mellitus, diabetic neuropathy, hyperlipidemia, chronic pain, osteoarthritis, and blood clots who presented with altered mental status after seizure #Seizure #Acute metabolic encephalopathy post seizure #NPH - IV keppra stopped. Continues to be nonverbal. UA ordered which was normal. - monitor for further seizures - CT head and brain MRI show possible NPH? LP done, CSF culture pending but prelim negative. No further treatment per neurology on 02/28 - EEG showed diffuse slowing Tachycardia - EKG showing NSR with bundle branch block - troponins were elevated, but downtrended. ECHO showed no significant abnormalities, trivial valve abnormalities. Cardiology stated conservative management - K 3.5, keep > 4, Mg 1.9, replace to > 2 - s/p heparin drip, on aspirin, statin, beta neha - blood culture from 02/22 negative, repeat blood culture on 02/25 showed 1/2 coag negative staff. Will repeat blood cultures - repeat UA negative Atrial fibrillation - off rate control meds, was on diltiazem and amiodarone drip - on lovenox DVT LLE - has IVC filter -on xarelto at home Leukocytosis - resolved Malnutrition - on tube feeds, decreasing rate Disposition: see how patient does off keppra, transfer to floor if no seizures Diet: tube feeds DVT prophylaxis: lovenox
[2019-03-01] MEDS: Atorvastatin Calcium 20 MG TAB PO SCH (21:11)
[2019-03-01 21:14] LABS: CKMB 2.3 ng/mL (0-6.6)
[2019-03-02] MEDS: HumaLOG 300 UNITS/3 ML VIAL SC PRN ×4 (01:12→18:41)
[2019-03-02 05:10] LABS: #Eosinphils 0.1 thou/uL (0.0-0.7); #Lymphocytes 0.7 thou/uL (1.20-3.40); #Neutrophils 7.5 thou/uL (1.40-6.50); %Basophils 0.1 % (0.0-1.0); %Lymphocytes 7.9 % (21.0-51.0); %Monocytes 10.5 % (0.0-10.0); %Neutrophils 80.5 % (42.0-75.0); Hemoglobin 14.1 g/dL (14.0-18.0); Mean Corpuscular HGB CONC 35.2 g/dL (32.0-36.0); Mean Corpuscular Hemoglobin 32.7 pg (27.0-31.0); Platelet Count 154 thou/uL (130-400); RBC Distribution Width 11.8 % (11.5-14.5); Red Blood Cell (RBC) Count 4.31 mill/uL (4.70-6.10); White Blood Cell (WBC) Count 9.3 thou/uL (4.8-10.8)
[2019-03-02 05:29] LABS: Anion Gap 13 mmol/L (10-20); BUN (Urea Nitrogen) 19 mg/dL (8.4-25.7); Calc. Creatinine Clearance 46 mL/min (70-130); Calcium 9.4 mg/dL (7.8-10.44); Carbon Dioxide 30 mmol/L (23-31); Chloride 103 mmol/L (98-107); Estimated GFR-MDRD 59; Glucose 257 mg/dL (83-110); Potassium 3.6 mmol/L (3.5-5.1); Sodium 142 mmol/L (136-145)
--- NOTE | 2019-03-02 07:08 | PRG ---
DATE OF SERVICE: 03/02/2019 I saw Cristobal Godinez in his hospital room this morning. He has been moved to the Stroke Unit over the weekend. He has intermittent low-grade fevers. Temperature this morning was 100.0 degrees Fahrenheit. The other vital signs are currently stable. Mr. Godinez does say one or two words. He follows commands in 4 extremities. He nods when I ask him yes or no questions. His blood cultures still positive for coag-negative staph in 1 of 2 cultures. Rest are negative to date. His white blood cell count is down to 9.3. Mr. Godinez has ventriculomegaly which may be related to recent infection. He might benefit from shunting but shunts have high rates of infectious complications and I want to make sure that we have exhausted our search for infection and that he is well on his way to treatment before putting this device in him. Job ID: [id number] MTDD
[2019-03-02] MEDS ORDERED: Pancrelipase DR 12000 1 CAP FS PRN (08:01)
[2019-03-02] MEDS ORDERED: Sodium Bicarbonate Tab 325 MG TAB PER TUBE PRN (08:01)
--- NOTE | 2019-03-02 08:56 | EEG ---
Referring Physician: Opal PICKERING EEG # [id number] TEST TYPE: ROUTINE PORTABLE INPATIENT REPORT: AN EEG USING THE INTERNATIONAL TEN-TWENTY SYSTEM OF ELECTRODE PLACEMENT WAS PERFORMED. The background activity, at best, is an 8 hertz alpha frequency. There is a predominant theta frequency background through a majority of the study. No epileptiform features were present. Photic stimulation was unremarkable. IMPRESSION: THIS IS AN ABNORMAL STUDY FOR THE FINDINGS OF DIFFUSE SLOWING WITHOUT EPILEPTIFORM FEATURES. Plastic Dolls Mold Filler:ROSALIA Wheat Grower: EEG.GRANT VELEZ
--- NOTE | 2019-03-02 09:52 | PRG ---
DATE OF SERVICE: 03/02/2019 SUBJECTIVE: Cristobal Godinez appears to be slightly more responsive this morning. OBJECTIVE: VITAL SIGNS: Temperature 98, pulse 70, respiratory rate 20, saturations 98% on 2 L, blood pressure 116/81. CHEST: No wheezing or crackles. CARDIAC: Normal S1 and S2. No gallops. ABDOMEN: No masses. IMPRESSION: Encephalopathy, hydrocephalus, seizure disorder, supraventricular tachycardia. PLAN: Pulmonary russ, at this stage, await input from Neurosurgery, Neurology. Pulmonary will follow at a distance. Call if needed. Job ID: [id number]
--- NOTE | 2019-03-02 10:13 | RAD ---
Portable chest: 03/02/2019 COMPARISON: 02/25/2019 HISTORY: Fever FINDINGS: Dobbhoff tube present, distal tip overlying the region of the gastric fundus. Heart and med iastinal contours are unremarkable. Old right-sided rib fractures are present. Bilateral humeral heads are elevated suggesting rotator cuff pathology. No pneumothorax or pleural fluid. No focal consolidation or alveolar edema. There is atherosclerotic calcification of the thoracic aorta. Dobbhoff tube appears to curl in the hypopharyngeal region. IMPRESSION: Portable chest radiograph as detailed above.
[2019-03-02] MEDS: Famotidine/PF 20 mg/2ml Vial SLOW IVP SCH ×2 (10:17→20:59)
[2019-03-02] MEDS: Enoxaparin Sodium 40 MG/0.4 ML SYRINGE SC SCH (10:21)
[2019-03-02] MEDS: Piperacillin/Tazobactam 3.375 GM in Sodium Chloride 0.9% 100 ML IVPB SCH ×2 (12:14→17:27)
[2019-03-02] MEDS ORDERED: Vancomycin HCl 1 GM in Sodium Chloride 0.9% 250 ML 300 ML IVPB SCH (13:00)
[2019-03-02] MEDS: Vancomycin HCl 1 GM in Premix Bag 1 BAG IVPB SCH (14:13)
--- NOTE | 2019-03-02 17:18 | RAD ---
KUB: 03/02/2019 at 4:45 PM COMPARISON: 03/02/2019 at 1:41 PM HISTORY: Evaluate Dobbhoff feeding tube FINDINGS: The distal tip of the feeding tube overlies the right upper quadrant, likely in the region of the gastric antrum or proximal duodenum. There is postoperative hardware associated with the right hemipelvis. Multiple postsurgical clips overlie the right abdomen. Stable IVC filter. Stable pr ominent degenerative change of the lumbar spine. Evaluation for free intraperitoneal air and small bowel obstruction is limited on supine imaging. IMPRESSION: Interval advancement of the Dobbhoff feeding tube as detailed above.
[2019-03-02] MEDS: Metoprolol Tartrate 25 MG TAB PER TUBE SCH (17:26)
[2019-03-02] MEDS: Aspirin 81 mg Enteric Coated Tablet PO SCH (17:26)
--- NOTE | 2019-03-02 18:25 | PDOC.HOSPP ---
- Subjective Encounter Date: 03/02/19 Encounter Time: 13:00 Subjective: The patient got up and worked with PT, walked around. When asked by his son how he was doing he was able to respond better. He follows some commands. Seemed a little more alert today but at my evaluation was sleepy. Fever resolved this am. Discussed possible repeat LP to see if mental status would improve and rule out infection with son, stated his only concern was patient went into rapid afib after procedure. - Objective Vital Signs & Weight: Vital Signs (12 hours) Temp Pulse Pulse Pulse Resp BP BP 03/02/19 15:25 98.7 F 86 20 03/02/19 11:25 45 L 86 123/76 127/82 03/02/19 11:15 98.4 F 76 20 03/02/19 09:05 03/02/19 07:48 98.9 F 71 20 BP Pulse Ox 03/02/19 15:25 148/95 H 97 03/02/19 11:25 03/02/19 11:15 147/91 H 100 03/02/19 09:05 98 03/02/19 07:48 116/81 98 Weight Admit Weight 155 lb Weight 142 lb 4.8 oz Most Recent Monitor Data Heart Rate from ECG 88 NIBP 127/84 NIBP BP-Mean 98 Respiration from ECG 15 SpO2 100 I&O: 03/01/19 03/02/19 03/03/19 06:59 06:59 06:59 Intake Total 1890 2030 240 Output Total 2110 750 Balance -220 1280 240 Result Diagrams: 03/02/19 04:28 03/02/19 04:28 Additional Labs: Accuchecks 03/02/19 03/02/19 03/02/19 15:31 06:23 00:13 POC Glucose 234 H 265 H 208 H 03/01/19 18:02 POC Glucose 274 H Hospitalist ROS - Review of Systems Constitutional: denies: chills Eyes: denies: vision change ENT: denies: ear discharge Respiratory: denies: cough, dry, shortness of breath - Medication Medications: Active Medications Generic Name Dose Route Start Last Admin Trade Name Freq PRN Reason Stop Dose Admin Acetaminophen 650 mg 02/22/19 13:46 03/01/19 00:02 Tylenol DC 650 mg Q4H PRN Administration Headache/Fever/Mild Pain (1-3) Lipase/Protease/Amylase 1 cap 03/02/19 08:01 03/02/19 10:08 Jenelle Avelar [id number] FS 1 cap .PER PROTOCOL PRN Administration TUBE OCCLUSION PROTOCOL Aspirin 81 mg 02/27/19 09:00 03/02/19 17:26 Ecotrin PO Not Given DAILY CAN Atorvastatin Calcium 20 mg 02/27/19 21:00 03/01/19 21:11 Lipitor PO 20 mg HS CAN Administration Enoxaparin Sodium 40 mg 02/27/19 09:00 03/02/19 10:21 Lovenox SC 40 mg 0900 CAN Administration Famotidine 20 mg 02/22/19 21:00 03/02/19 10:17 Pepcid SLOW IVP 20 mg Q12HR CAN Administration Potassium Chloride 40 meq/ 270 mls @ 135 mls/hr 02/25/19 17:45 02/28/19 08:12 Sodium Chloride IVPB 270 mls ASDIR PRN Administration FOR SERUM K+ 2.5 - 3.5 Magnesium Sulfate 1 gm/ Sodium 102 mls @ 102 mls/hr 02/25/19 17:45 02/27/19 20:06 Chloride IV 102 mls PRN PRN Administration MAG LEVEL 1.4 - 2.0 Diltiazem HCl 125 mg/ 125 mls @ 5 mls/hr 02/25/19 19:00 02/25/19 19:13 Miscellaneous Medication 1 IVPB 125 mls each/ Sodium Chloride INF CAN Administration Protocol Piperacillin Sod/Tazobactam 100 mls @ 200 mls/hr 03/02/19 12:00 03/02/19 17: 27 Sod 3.375 gm/ Sodium Chloride IVPB 100 mls Q6HR CAN Administration Vancomycin HCl 1 gm/ Device 200 mls @ 200 mls/hr 03/02/19 13:00 03/02/19 14: 13 IVPB 200 mls 0100,1300 CAN Administration Insulin Human Lispro 0 units 02/22/19 14:44 03/02/19 15:39 Humalog SC 3 unit .MILD SLIDING SCALE PRN Administration Mild Correctional Scale Insulin Human Lispro 0 units 02/22/19 14:44 03/02/19 01:12 Humalog SC 2 unit .BEDTIME SLIDING SC PRN Administration Bedtime Correctional Scale Lorazepam 2 mg 02/22/19 13:54 02/22/19 16:20 Ativan SLOW IVP 2 mg Q1H PRN Administration Seizures Metoprolol Tartrate 37.5 mg 03/02/19 09:00 03/02/19 17:26 Lopressor PER TUBE Not Given DAILY CAN Miscellaneous Medication 1 pkt 02/25/19 17:45 02/27/19 19:52 Phos-Nak PO 1 pkt TIDPRN PRN Administration FOR PHOS LEVEL 1.0 - 1.8 Morphine Sulfate 4 mg 02/22/19 13:45 02/22/19 16:05 Morphine SLOW IVP 4 mg Q4H PRN Administration Chest Pain Potassium Chloride 40 meq 02/25/19 17:45 02/27/19 10:31 Klor-Con PER TUBE 40 meq ASDIR PRN Administration FOR SERUM K+ 2.5-3.5 Sodium Bicarbonate 650 mg 03/02/19 08:01 03/02/19 10:08 Bicarbonate, Sodium PER TUBE 650 mg .PER PROTOCOL PRN Administration ENTERAL TUBE OCCLUSION Sodium Chloride 10 ml 02/26/19 09:00 03/02/19 14:12 Flush - Normal Saline IVF 10 ml Q12HR CAN Administration - Exam General - other findings: Drowsy, non-verbal, has difficulty answering questions Eye: PERRL, anicteric sclera ENT: normocephalic atraumatic, no oropharyngeal lesions Neck: supple, no JVD Heart: RRR, no murmur, no gallops Respiratory: CTAB, no wheezes, no rales, no ronchi Gastrointestinal: soft, non-tender, non-distended Extremities: no cyanosis, no clubbing Extremities - other findings: RUE with decreased swelling. Left hand contracture tender to touch Skin: normal turgor, no lesions, no rashes Neurological: cranial nerve grossly intact, normal sensation to touch, no focal deficits, no new deficit Musculoskeletal: normal tone, normal strength, no muscle wasting Psychiatric: normal affect, normal behavior, A&O x 3, oriented to person, oriented to place, oriented to time Hosp A/P - Plan Abd X ray 02/28: Dobhuff tube in place Brain MRI 02/23: NPH Brain CT: possible NPH? Venous doppler: occlusive thrombus LLE Chest X ray 02/25: cardiomegaly Venous US RUE: superficial thrombus This is a 78 year old male with PMH of Hypertension, diabetes mellitus, diabetic neuropathy, hyperlipidemia, chronic pain, osteoarthritis, and blood clots who presented with altered mental status after seizure #Seizure #Acute metabolic encephalopathy post seizure #NPH #SIRS - IV keppra stopped. Continues to be nonverbal. Keppra level normal. UA ordered which was normal. CHest X ray normal, blood cultures normal - Ct head and MRI brain showed NPH, patient had improvement in mental status with LP per grand-daughter. Repeat LP considered however patient went into afib after last one, so will hold off given slight improvement in mental status today - patient had temp of 100, tachycardia overnight, started Vanc and zosyn empirically for now. Flu swab ordered - monitor for further seizures - EEG showed diffuse slowing Tachycardia - EKG showing NSR with bundle branch block - troponins were elevated, but downtrended. ECHO showed no significant abnormalities, trivial valve abnormalities. Cardiology stated conservative management - K 3.5, keep > 4, Mg 1.9, replace to > 2 - s/p heparin drip, on aspirin, statin, beta neha - blood culture from 02/22 negative, repeat blood culture on 02/25 showed 1/2 coag negative staff. REpeat cultures negative - repeat UA negative Atrial fibrillation - off rate control meds, was on diltiazem and amiodarone drip - on lovenox DVT LLE - has IVC filter -on xarelto at home Leukocytosis - resolved Malnutrition - on tube feeds, decreasing rate Disposition: re-evaluate mental status, consider repeat LP if mental status worsens or spikes fever again Diet: tube feeds DVT prophylaxis: lovenox
--- NOTE | 2019-03-02 18:27 | RAD ---
SUPINE ABDOMEN: Indication: Assess Dobbhoff placement. FINDINGS: Feeding tube versus Dobbhoff tube has been placed. The tube is advanced through the EG junction and i s coiled in the epigastric fundus near the cardia. Bowel gas pattern is unremarkable with scattered small and large bowel gas noted. POS: [facility]
[2019-03-02] MEDS: Atorvastatin Calcium 20 MG TAB PO SCH (20:59)
[2019-03-03] MEDS: Piperacillin/Tazobactam 3.375 GM in Sodium Chloride 0.9% 100 ML IVPB SCH ×4 (00:02→18:00)
[2019-03-03] MEDS: HumaLOG 300 UNITS/3 ML VIAL SC PRN ×4 (00:35→19:26)
[2019-03-03] MEDS: Vancomycin HCl 1 GM in Premix Bag 1 BAG IVPB SCH ×2 (01:50→13:04)
[2019-03-03 04:57] LABS: #Basophils 0.1 thou/uL (0.0-0.2); #Eosinphils 0.1 thou/uL (0.0-0.7); #Lymphocytes 0.7 thou/uL (1.20-3.40); %Basophils 0.6 % (0.0-1.0); %Eosinophils 1.6 % (0.0-10.0); %Lymphocytes 7.4 % (21.0-51.0); %Monocytes 11.3 % (0.0-10.0); Hemoglobin 14.6 g/dL (14.0-18.0); Mean Corpuscular HGB CONC 34.5 g/dL (32.0-36.0); Mean Corpuscular Hemoglobin 32.7 pg (27.0-31.0); Mean Corpuscular Volume 94.8 fL (78.0-98.0); Mean Platelet Volume 9.4 fL (7.4-10.4); Platelet Count 176 thou/uL (130-400); RBC Distribution Width 11.8 % (11.5-14.5); Red Blood Cell (RBC) Count 4.47 mill/uL (4.70-6.10); White Blood Cell (WBC) Count 8.9 thou/uL (4.8-10.8)
[2019-03-03 05:16] LABS: Anion Gap 15 mmol/L (10-20); BUN (Urea Nitrogen) 16 mg/dL (8.4-25.7); Calc. Creatinine Clearance 47 mL/min (70-130); Calcium 9.3 mg/dL (7.8-10.44); Carbon Dioxide 29 mmol/L (23-31); Chloride 100 mmol/L (98-107); Estimated GFR-MDRD 60; Glucose 238 mg/dL (83-110); Potassium 3.4 mmol/L (3.5-5.1); Sodium 141 mmol/L (136-145)
--- NOTE | 2019-03-03 07:35 | PRG ---
DATE OF SERVICE: 03/03/2019 I saw Cristobal Godinez in room on the inpatient stroke floor this morning. Fever yesterday prompted more cultures and results are in. Overnight, no more fevers were recorded and blood pressures have been in the 120s to 130s and other vitals were stable. On examination, Mr. Godinez takes a bit of time to wake up but with enough stimulation he opens his eyes and follows commands with four extremities. The right toes move very slowly. The rest of the extremities move quickly and to command. He says one word and drifts back to sleep. His neurological examination has not improved significantly since his admission. Microbiology results show a second blood culture that is positive for coag- negative staph, so I do believe this is real and not a contaminant. CSF cultures not resulted currently. I was contacted by the medical team about a second lumbar puncture yesterday. It does not seem to be have been done due to the lack of documentation thereof. Radiology can do this in a CT-guided or x-ray guided fashion. 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 With the second blood culture positive, I am very hesitant to leave a permanent implanted device in the CSF space. If there is significant benefit from a lumbar puncture, this can be repeated every 2 to 3 days while he is in the hospital. If there is no significant neurological improvement from release of spinal fluid, then we can wait until all cultures are negative, and he is adequately treated for his bacteremia before considering shunting. Job ID: [id number] [facility]
[2019-03-03] MEDS: Aspirin 81 mg Enteric Coated Tablet PO SCH (09:49)
[2019-03-03] MEDS: Metoprolol Tartrate 25 MG TAB PER TUBE SCH (09:49)
[2019-03-03] MEDS: Enoxaparin Sodium 40 MG/0.4 ML SYRINGE SC SCH (09:50)
[2019-03-03] MEDS: Famotidine/PF 20 mg/2ml Vial SLOW IVP SCH ×2 (09:51→21:40)
--- NOTE | 2019-03-03 17:21 | PDOC.HOSPP ---
- Subjective Encounter Date: 03/03/19 Encounter Time: 10:30 Subjective: The patient's mental status improved today. He seemed to answer some questions according to the grand-daughter. He walked with physical therapy. Patient is still unable to answer questions when I ask him however - Objective Vital Signs & Weight: Vital Signs (12 hours) Temp Pulse Pulse Pulse Resp BP BP 03/03/19 15:38 98.5 F 75 16 03/03/19 15:05 78 77 120/76 120/73 03/03/19 11:44 98.4 F 69 18 03/03/19 10:05 86 85 118/74 131/87 03/03/19 08:00 97.4 F L 81 20 BP Pulse Ox 03/03/19 15:38 105/71 90 L 03/03/19 15:05 03/03/19 11:44 107/71 92 L 03/03/19 10:05 03/03/19 08:00 111/77 97 Weight Admit Weight 155 lb Weight 146 lb 4.8 oz Most Recent Monitor Data Heart Rate from ECG 88 NIBP 127/84 NIBP BP-Mean 98 Respiration from ECG 15 SpO2 100 I&O: 03/02/19 03/03/19 03/04/19 06:59 06:59 06:59 Intake Total 2030 982 60 Output Total 750 Balance 1280 982 60 Result Diagrams: 03/03/19 04:39 03/03/19 04:39 Additional Labs: Accuchecks 03/03/19 03/03/19 03/03/19 12:17 06:23 00:25 POC Glucose 212 H 217 H 238 H 03/02/19 18:19 POC Glucose 224 H Hospitalist ROS - Medication Medications: Active Medications Generic Name Dose Route Start Last Admin Trade Name Freq PRN Reason Stop Dose Admin Acetaminophen 650 mg 02/22/19 13:46 03/01/19 00:02 Tylenol [place] 650 mg Q4H PRN Administration Headache/Fever/Mild Pain (1-3) Lipase/Protease/Amylase 1 cap 03/02/19 08:01 03/02/19 10:08 Jenelle Avelar [id number] FS 1 cap .PER PROTOCOL PRN Administration TUBE OCCLUSION PROTOCOL Aspirin 81 mg 02/27/19 09:00 03/03/19 09:49 Ecotrin PO 81 mg DAILY CAN Administration Atorvastatin Calcium 20 mg 02/27/19 21:00 03/02/19 20:59 Lipitor PO 20 mg HS CAN Administration Enoxaparin Sodium 40 mg 02/27/19 09:00 03/03/19 09:50 Lovenox SC 40 mg 0900 CAN Administration Famotidine 20 mg 02/22/19 21:00 03/03/19 09:51 Pepcid SLOW IVP 20 mg Q12HR CAN Administration Diltiazem HCl 125 mg/ 125 mls @ 5 mls/hr 02/25/19 19:00 02/25/19 19:13 Miscellaneous Medication 1 IVPB 125 mls each/ Sodium Chloride INF CAN Administration Protocol Piperacillin Sod/Tazobactam 100 mls @ 200 mls/hr 03/02/19 12:00 03/03/19 11: 27 Sod 3.375 gm/ Sodium Chloride IVPB 100 mls Q6HR CAN Administration Vancomycin HCl 1 gm/ Device 200 mls @ 200 mls/hr 03/02/19 13:00 03/03/19 13: 04 IVPB 200 mls 0100,1300 CAN Administration Insulin Human Lispro 0 units 02/22/19 14:44 03/03/19 13:05 Humalog SC 3 unit .MILD SLIDING SCALE PRN Administration Mild Correctional Scale Insulin Human Lispro 0 units 02/22/19 14:44 03/03/19 00:35 Humalog SC 2 unit .BEDTIME SLIDING SC PRN Administration Bedtime Correctional Scale Lorazepam 2 mg 02/22/19 13:54 02/22/19 16:20 Ativan SLOW IVP 2 mg Q1H PRN Administration Seizures Metoprolol Tartrate 37.5 mg 03/02/19 09:00 03/03/19 09:49 Lopressor PER TUBE 37.5 mg DAILY CAN Administration Morphine Sulfate 4 mg 02/22/19 13:45 02/22/19 16:05 Morphine SLOW IVP 4 mg Q4H PRN Administration Chest Pain Sodium Bicarbonate 650 mg 03/02/19 08:01 03/02/19 10:08 Bicarbonate, Sodium PER TUBE 650 mg .PER PROTOCOL PRN Administration ENTERAL TUBE OCCLUSION Sodium Chloride 10 ml 02/26/19 09:00 03/03/19 11:27 Flush - Normal Saline IVF 10 ml Q12HR CAN Administration - Exam General Appearance: NAD, awake alert Eye: PERRL, anicteric sclera ENT: normocephalic atraumatic, no oropharyngeal lesions Neck: supple, no JVD, no thyromegaly Heart: RRR, no murmur, no gallops, no rubs Respiratory: CTAB, no wheezes, no rales Gastrointestinal: soft, non-tender, non-distended, normal bowel sounds Extremities: no cyanosis, no clubbing, no edema Neurological - other findings: patient mostly non-verbal. Able to follow some comands. Musculoskeletal - other findings: Withdraws to pain when touching right hand. Right arm less swollen Hosp A/P - Plan Abd X ray 02/28: Dobhuff tube in place Brain MRI 02/23: NPH Brain CT: possible NPH? Venous doppler: occlusive thrombus LLE Chest X ray 02/25: cardiomegaly Venous US RUE: superficial thrombus This is a 78 year old male with PMH of Hypertension, diabetes mellitus, diabetic neuropathy, hyperlipidemia, chronic pain, osteoarthritis, and blood clots who presented with altered mental status after seizure #Seizure #Acute metabolic encephalopathy post seizure #NPH #SIRS - IV keppra stopped. Continues to be nonverbal. EEG shows diffuse slowing. Keppra level normal. UA ordered which was normal. CHest X ray normal, blood cultures normal - Ct head and MRI brain showed NPH, patient had improvement in mental status with LP per grand-daughter. Repeat LP considered however patient went into afib after last one, so hold off given slight improvement in mental status today - patient had temp of 100, tachycardia, vanc and zosyn ordered. Repeat blood cultures showing 1/2 gram positive cocci, will repeat cultures again. Consult ID with result to cause of fever. Influenza negative -appreciate neuro with regards to prognosis of mental status Tachycardia - resolved, maybe SIRS? - EKG showing NSR with bundle branch block - troponins were elevated, but downtrended. Repeat troponin 0.1 downtrended. ECHO showed hypokinetic mid to distal anterior wall. - K 3.5, keep > 4, Mg 1.9, replace to > 2 - s/p heparin drip, on aspirin, statin, beta neha - blood culture from 02/22 negative, repeat blood culture on 02/25 showed 1/2 coag negative staff. REpeat cultures negative - repeat UA negative Atrial fibrillation - off rate control meds, was on diltiazem and amiodarone drip - on lovenox DVT LLE - has IVC filter -on xarelto at home Leukocytosis - resolved Malnutrition - on tube feeds, changing to continuous tube feeding Hyperglycemia - blood sugars in 200's, got 6 units sliding scale yesterday, will monitor givne poor po intake Disposition: pending improvement of mental status Diet: tube feeds DVT prophylaxis: lovenox
[2019-03-03] MEDS: Atorvastatin Calcium 20 MG TAB PO SCH (21:40)
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
[2019-03-04] MEDS: Piperacillin/Tazobactam 3.375 GM in Sodium Chloride 0.9% 100 ML IVPB SCH ×2 (01:48→06:05)
[2019-03-04] MEDS: Vancomycin HCl 1 GM in Premix Bag 1 BAG IVPB SCH (02:33)
[2019-03-04 06:29] LABS: #Eosinphils 0.2 thou/uL (0.0-0.7); #Lymphocytes 0.6 thou/uL (1.20-3.40); #Monocytes 0.9 thou/uL (0.11-0.59); #Neutrophils 6.2 thou/uL (1.40-6.50); %Basophils 0.6 % (0.0-1.0); %Lymphocytes 7.1 % (21.0-51.0); %Monocytes 11.3 % (0.0-10.0); Hemoglobin 14.3 g/dL (14.0-18.0); Mean Corpuscular HGB CONC 34.6 g/dL (32.0-36.0); Mean Corpuscular Hemoglobin 32.8 pg (27.0-31.0); Mean Corpuscular Volume 94.7 fL (78.0-98.0); Mean Platelet Volume 9.9 fL (7.4-10.4); Platelet Count 186 thou/uL (130-400); RBC Distribution Width 11.6 % (11.5-14.5); Red Blood Cell (RBC) Count 4.36 mill/uL (4.70-6.10); White Blood Cell (WBC) Count 7.8 thou/uL (4.8-10.8)
[2019-03-04 06:42] LABS: Anion Gap 14 mmol/L (10-20); BUN (Urea Nitrogen) 19 mg/dL (8.4-25.7); Calc. Creatinine Clearance 40 mL/min (70-130); Calcium 9.4 mg/dL (7.8-10.44); Carbon Dioxide 28 mmol/L (23-31); Chloride 102 mmol/L (98-107); Estimated GFR-MDRD 47; Glucose 374 mg/dL (83-110); Potassium 3.8 mmol/L (3.5-5.1); Sodium 140 mmol/L (136-145)
[2019-03-04] MEDS: HumaLOG 300 UNITS/3 ML VIAL SC PRN ×4 (06:44→21:23)
--- NOTE | 2019-03-04 09:08 | PRG ---
DATE OF SERVICE: 03/04/2019 I saw Cristobal Godinez in his hospital room this morning. We have been following along and hoping for neurological improvement with time. We have not seen that. I have reviewed notes from our Internal Medicine colleagues as well as Infectious Disease. When I see Mr. Godinez in his hospital bed this morning, he feels febrile. His entire body is warm. He is a bit diaphoretic. Last recorded vital signs were at 4 a.m. There has been no fever recorded on our electronic chart since the and that fever was 100.0 degrees Fahrenheit. On examination, Mr. Godinez is neurologically stable. He rests in bed without opening his eyes until he is woken by a loud noise or a stimulus. He opens his eyes. He attempts to follow a conversation and says one or two words. He follows commands and then, he drifts back to sleep. This has been the exact state he has been in since his admission. Microbiology results suggest coag-negative staph in 2 separate blood cultures by four days. CSF cultures have been negative from the February 25. The white blood cell count this morning is down to 7.8. He has been on antibiotics until yesterday. I do not know whether we will be able to safely place a ventriculoperitoneal shunt. The problem is two positive blood cultures in a warm and diaphoretic patient this morning, increases the risk of a shunt infection. Already the risk of that is higher than with most implants due to the access of an immune privileged site with abundant sources of glucose and very few white cells. No large volume lumbar puncture was done and I am not sure if CSF diversion will help. In the end, we may be forced to place an external ventricular drain. This will give us opportunity to sample the CSF on an ongoing basis. The number of cells present on his first lumbar puncture were significant, but with 3500 red blood cells, I would expect between 3 and 7 white cells, they were 51. There was a neutrophilia. The external ventricular drain will also allow us to see whether CSF diversion improves his neurological function. Placing the drain may complicate eventual shunt placement as it may introduce one more foreign body to the equation. I want to discuss all these issues with family members, but they are not around when I have been rounding in the morning. We will try to catch up with them in person later this afternoon or tomorrow morning. Job ID: [id number]
[2019-03-04] MEDS: Famotidine/PF 20 mg/2ml Vial SLOW IVP SCH (09:26)
[2019-03-04] MEDS: Aspirin 81 mg Enteric Coated Tablet PO SCH (09:26)
[2019-03-04] MEDS: Metoprolol Tartrate 25 MG TAB PER TUBE SCH ×2 (09:26→09:57)
[2019-03-04] MEDS: Enoxaparin Sodium 40 MG/0.4 ML SYRINGE SC SCH (09:26)
[2019-03-04] MEDS ORDERED: Dextrose 5 %-0.45 % NaCl 1,000 ML IV SCH (10:00)
[2019-03-04] MEDS: Sodium Chloride 0.45% 1,000 ML IV SCH (14:01)
--- NOTE | 2019-03-04 17:38 | PDOC.HOSPP ---
- Subjective Encounter Date: 03/04/19 Encounter Time: 16:00 Subjective: The patient is more alert today. He states that he is hungry and may try eating. He denies any particular discomfort - Objective Vital Signs & Weight: Vital Signs (12 hours) Temp Pulse Resp BP Pulse Ox 03/04/19 15:52 98.5 F 76 16 115/77 92 L 03/04/19 11:36 98.5 F 75 16 104/63 95 03/04/19 08:00 98.6 F 80 14 101/65 95 Weight Admit Weight 155 lb Weight 144 lb 9 oz Most Recent Monitor Data Heart Rate from ECG 88 NIBP 127/84 NIBP BP-Mean 98 Respiration from ECG 15 SpO2 100 I&O: 03/03/19 03/04/19 03/05/19 06:59 06:59 06:59 Intake Total 982 1771 180 Balance 982 1771 180 Result Diagrams: 03/04/19 05:55 03/04/19 05:55 Additional Labs: Accuchecks 03/04/19 03/04/19 03/04/19 11:59 06:09 00:22 POC Glucose 310 H 315 H 255 H 03/03/19 18:07 POC Glucose 236 H Hospitalist ROS - Review of Systems Eyes: denies: vision change Neurological: reports: other Other: no headaches - Medication Medications: Active Medications Generic Name Dose Route Start Last Admin Trade Name Freq PRN Reason Stop Dose Admin Acetaminophen 650 mg 02/22/19 13:46 03/01/19 00:02 Tylenol SD 650 mg Q4H PRN Administration Headache/Fever/Mild Pain (1-3) Lipase/Protease/Amylase 1 cap 03/02/19 08:01 03/02/19 10:08 Jenelle Avelar [id number] FS 1 cap .PER PROTOCOL PRN Administration TUBE OCCLUSION PROTOCOL Aspirin 81 mg 02/27/19 09:00 03/04/19 09:26 Ecotrin PO 81 mg DAILY CAN Administration Atorvastatin Calcium 20 mg 02/27/19 21:00 03/03/19 21:40 Lipitor PO 20 mg HS CAN Administration Enoxaparin Sodium 40 mg 02/27/19 09:00 03/04/19 09:26 Lovenox SC 40 mg 0900 CAN Administration Diltiazem HCl 125 mg/ 125 mls @ 5 mls/hr 02/25/19 19:00 02/25/19 19:13 Miscellaneous Medication 1 IVPB 125 mls each/ Sodium Chloride INF CAN Administration Protocol Sodium Chloride 1,000 mls @ 50 mls/hr 03/04/19 13:45 03/04/19 14:01 1/2 Normal Saline IV 1,000 mls .Q20H CAN Administration Insulin Human Lispro 0 units 02/22/19 14:44 03/03/19 00:35 Humalog SC 2 unit .BEDTIME SLIDING SC PRN Administration Bedtime Correctional Scale Metoprolol Tartrate 37.5 mg 03/02/19 09:00 03/04/19 09:57 Lopressor PER TUBE Not Given DAILY CAN Sodium Bicarbonate 650 mg 03/02/19 08:01 03/02/19 10:08 Bicarbonate, Sodium PER TUBE 650 mg .PER PROTOCOL PRN Administration ENTERAL TUBE OCCLUSION Sodium Chloride 10 ml 02/26/19 09:00 03/04/19 09:34 Flush - Normal Saline IVF 10 ml Q12HR CAN Administration Sodium Chloride 10 ml 02/26/19 07:25 03/04/19 06:07 Flush - Normal Saline IVF 10 ml PRN PRN Administration Saline Flush - Exam General Appearance: NAD, awake alert Eye: PERRL, anicteric sclera ENT - other findings: NG tube in place Neck: supple, symmetric, no JVD Heart: RRR, no murmur, no gallops, no rubs Respiratory: CTAB, no wheezes, no rales, no ronchi Gastrointestinal: soft, non-tender, non-distended, no palpable masses, no hepatomegaly Extremities: no cyanosis, no clubbing, no edema Skin: normal turgor, no lesions, no rashes Neurological: cranial nerve grossly intact, normal sensation to touch, no focal deficits, no new deficit Musculoskeletal: normal tone, normal strength, no muscle wasting Psychiatric: normal affect, normal behavior, A&O x 3 Hosp A/P - Plan Abd X ray 02/28: Dobhuff tube in place Brain MRI 02/23: NPH Brain CT: possible NPH? Venous doppler: occlusive thrombus LLE Chest X ray 02/25: cardiomegaly Venous US RUE: superficial thrombus This is a 78 year old male with PMH of Hypertension, diabetes mellitus, diabetic neuropathy, hyperlipidemia, chronic pain, osteoarthritis, and blood clots who presented with altered mental status after seizure #Seizure #Acute metabolic encephalopathy post seizure #NPH #SIRS - IV keppra stopped. Mental status improved today. EEG showed diffuse slowing. repeat EEG ordered today per neurology - . UA ordered which was normal. CHest X ray normal, blood cultures normal. Patient had fever on the 13th of 100.1, influenza negative, repeat blood cultures showing 1/2 staph aureus, repeat bloood cultures 03/03 negative. -ID consulted, discontinuing antibiotics. Per neuro ,may consider shunt placement but family was not available ALFREDO- possibly from antibiotics - creatinine increased to 1.44, will do gentle hydration with 1/2 NS Tachycardia - resolved - EKG showing NSR with bundle branch block - troponins were elevated, but downtrended. Repeat troponin 0.1 downtrended. ECHO showed hypokinetic mid to distal anterior wall. Conserative management per cardiology - K 3.5, keep > 4, Mg 1.9, replace to > 2 - s/p heparin drip, on aspirin, statin, beta neha - blood culture from 02/22 negative, repeat blood culture on 02/25 showed 1/2 coag negative staff. REpeat cultures negative - repeat UA negative Atrial fibrillation - off rate control meds, was on diltiazem and amiodarone drip - on lovenox DVT LLE - has IVC filter -on xarelto at home Leukocytosis - resolved Malnutrition - on tube feeds, changing to continuous tube feeding. Speech following and may recommend ice chips Hyperglycemia - blood sugars elevated, changed to medium dose sliding scale - discontinue D5 in fluids Disposition: pending improvement of mental status Diet: tube feeds DVT prophylaxis: lovenox
[2019-03-04] MEDS: Atorvastatin Calcium 20 MG TAB PO SCH (21:22)
[2019-03-05 05:46] LABS: Anion Gap 13 mmol/L (10-20); BUN (Urea Nitrogen) 16 mg/dL (8.4-25.7); Calc. Creatinine Clearance 43 mL/min (70-130); Calcium 9.3 mg/dL (7.8-10.44); Carbon Dioxide 31 mmol/L (23-31); Chloride 100 mmol/L (98-107); Estimated GFR-MDRD 54; Glucose 236 mg/dL (83-110); Potassium 3.3 mmol/L (3.5-5.1); Sodium 141 mmol/L (136-145)
[2019-03-05] MEDS: HumaLOG 300 UNITS/3 ML VIAL SC PRN (05:46)
[2019-03-05] MEDS: Sodium Chloride 0.45% 1,000 ML IV SCH (06:52)
--- NOTE | 2019-03-05 07:49 | PRG ---
DATE OF SERVICE: 03/05/2019 I saw Cristobal Godinez in his hospital room this morning. I visited with his family yesterday afternoon. I explained to his mother and sister as well as his brother on the phone, the rationale behind external ventricular drain placement. This gives us access to the CSF space for cultures continuously and allow us to see whether decrease in the CSF pressure results in any neurological improvement. If there is no improvement, I would not place a shunt permanently. If there is significant improvement, and there is no infection in the fluid, then the shunt could be placed at some point. We will need at least two consecutive days of cultures that are negative at their final reporting and before placing a shunt. We can start this process by the surgery today. I have not heard word back from the family yet about their final decision. Overnight, no fevers have been recorded. Vital signs are relatively stable. There is no change in his neurological examination. The plan as outlined above. Job ID: [id number]
--- NOTE | 2019-03-05 08:08 | PRG ---
DATE OF SERVICE: 03/04/2019 SUBJECTIVE: The patient is awake. He is still able to communicate verbally, but in small sentences, follows commands, looks around, does not have headaches. No respiratory symptoms or abdominal pain, and he is voiding in the diaper. OBJECTIVE: VITAL SIGNS: Temperature has been max 98.9. HEENT: Ocular movements conjugate. Pupils are equal. LUNGS: Clear. HEART: S1 and S2, regular rate. ABDOMEN: Soft. Not distended or tender. EXTREMITIES: Moves extremities equally. LABORATORY DATA: White cell count 7.8, hemoglobin 14, platelets 186. Creatinine is a little bit up to 1.4. Repeat blood cultures negative from March 03. ASSESSMENT: Type 2 diabetes, hypertension, recurrent seizure activity, question of normal-pressure hydrocephalus in the CSF findings discussed previously. Thrombophlebitis in the superficial vein of the right upper extremity as well that seems to be improving. I still believe that the CSF findings are due to blood contamination rather than a primary inflammatory process. He did have the seizure activity which has been shown in the past to be associated with some pleocytosis in about third of the cases, and I think that is what is going on here, that would raise the white cells expected to round 30 to 50 range that he presented in addition to the contamination by blood. The patient is going to have a drain placed to reassess the CSF fluid as well as see what the response in terms of his cognitive function will be. Job ID: [id number]
[2019-03-05] MEDS ORDERED: Famotidine/PF 20 mg/2ml Vial SLOW IVP SCH (09:00)
[2019-03-05] MEDS: Aspirin 81 mg Enteric Coated Tablet PO SCH (09:06)
[2019-03-05] MEDS: Metoprolol Tartrate 25 MG TAB PER TUBE SCH (09:07)
[2019-03-05] MEDS ORDERED: Potassium Chloride 20 MEQ TAB PO SCH (10:00)
[2019-03-05] MEDS ORDERED: Metoprolol Tartrate 25 MG TAB PER TUBE SCH (11:30)
[2019-03-05] MEDS ORDERED: Aspirin 81 mg Enteric Coated Tablet PO SCH (11:30)
[2019-03-05] MEDS ORDERED: ePHEDrine 50 MG/ML VIAL ONE (12:10)
[2019-03-05] MEDS ORDERED: Lidocaine 1% PF 5 ML VIAL ONE (12:10)
[2019-03-05] MEDS ORDERED: Calcium Chloride 1 GM/10 ML Abboject SYRINGE ONE (12:10)
[2019-03-05] MEDS ORDERED: PROPOFOL 200 MG/20 ML VIAL ONE (12:10)
[2019-03-05] MEDS ORDERED: PHENYLEPHRINE-NS 100 MCG/ML 10 ML SYRINGE ONE (12:10)
[2019-03-05] MEDS ORDERED: Fentanyl 100 MCG/2 ML VIAL ONE (18:03)
--- NOTE | 2019-03-05 18:04 | PRG ---
DATE OF SERVICE: 03/05/2019 I went by Mr. Godinez's hospital room and met his family. Once again, I answered a number of questions. In the end of our discussion, they decided to proceed with external ventricular drain placement. I went over informed consent once again: I discussed indications, risks, benefits, alternatives, and expected outcomes to external ventricular drain placement. The risks I discussed included, but were not limited to, bleeding, infection, CSF leak, brain damage, seizures, stroke, paralysis, cognitive decline, dependence for care, senior care placement, blindness, speech disturbance, and other permanent neurological deficit, and . They understand all the risks and they wanted to proceed. Mr. Godinez has been n.p.o. all day. We will take him to the operating room. Job ID: [id number]
[2019-03-05] MEDS ORDERED: Sodium Chloride 0.9% 10 ML ONE (18:12)
[2019-03-05] MEDS ORDERED: Thrombin 5000 UNITS/5 ML VIAL ONE (18:12)
[2019-03-05] MEDS ORDERED: Lidocaine 0.5%/Epinephrine 1:200,000 50 ml Vial ONE (18:12)
--- NOTE | 2019-03-05 20:08 | PDOC.HOSPP ---
- Subjective Encounter Date: 03/05/19 Encounter Time: 14:00 Subjective: The patient today had no complaints. When I asked how he was feeling he shrugged his shoulders. Speech saw him yesterday and were going to feed ice chips however he was NPO for possible EVD placement. Family has decided to proceed concerned about left eye, seems to be scratching it a lot and sometimes notices discharge - Objective Vital Signs & Weight: Vital Signs (12 hours) Temp Pulse Pulse Pulse Resp BP BP 03/05/19 15:49 98.1 F 80 16 03/05/19 14:16 71 75 118/77 129/79 03/05/19 12:00 97.2 F L 73 18 BP Pulse Ox 03/05/19 15:49 137/86 100 03/05/19 14:16 03/05/19 12:00 126/79 90 L Weight Admit Weight 155 lb Weight 140 lb 4.8 oz Most Recent Monitor Data Heart Rate from ECG 88 NIBP 127/84 NIBP BP-Mean 98 Respiration from ECG 15 SpO2 100 I&O: 03/04/19 03/05/19 03/06/19 06:59 06:59 06:59 Intake Total 1771 862 Output Total 200 Balance 1771 862 -200 Result Diagrams: 03/04/19 05:55 03/05/19 04:45 Additional Labs: Accuchecks 03/05/19 03/05/19 03/05/19 18:06 12:10 05:44 POC Glucose 185 H 223 H 237 H 03/04/19 23:49 POC Glucose 197 H Hospitalist ROS - Review of Systems Constitutional: denies: fever, chills, sweats - Medication Medications: Active Medications Generic Name Dose Route Start Last Admin Trade Name Freq PRN Reason Stop Dose Admin Acetaminophen 650 mg 02/22/19 13:46 03/01/19 00:02 Tylenol NC 650 mg Q4H PRN Administration Headache/Fever/Mild Pain (1-3) Lipase/Protease/Amylase 1 cap 03/02/19 08:01 03/02/19 10:08 Jenelle Avelar [id number] FS 1 cap .PER PROTOCOL PRN Administration TUBE OCCLUSION PROTOCOL Aspirin 81 mg 02/27/19 09:00 03/04/19 09:26 Ecotrin PO 81 mg DAILY CAN Administration Atorvastatin Calcium 20 mg 02/27/19 21:00 03/04/19 21:22 Lipitor PO 20 mg HS CAN Administration Famotidine 20 mg 03/05/19 09:00 03/05/19 09:08 Pepcid SLOW IVP 20 mg DAILY CAN Administration Diltiazem HCl 125 mg/ 125 mls @ 5 mls/hr 02/25/19 19:00 02/25/19 19:13 Miscellaneous Medication 1 IVPB 125 mls each/ Sodium Chloride INF CAN Administration Protocol Insulin Human Lispro 0 units 02/22/19 14:44 03/04/19 21:23 Humalog SC 2 unit .BEDTIME SLIDING SC PRN Administration Bedtime Correctional Scale Insulin Human Lispro 0 units 03/04/19 13:41 03/05/19 05:46 Humalog SC 4 unit .MODERATE SLIDING SC PRN Administration Moderate Correctional Scale Metoprolol Tartrate 37.5 mg 03/02/19 09:00 03/04/19 09:57 Lopressor PER TUBE Not Given DAILY CAN Sodium Bicarbonate 650 mg 03/02/19 08:01 03/02/19 10:08 Bicarbonate, Sodium PER TUBE 650 mg .PER PROTOCOL PRN Administration ENTERAL TUBE OCCLUSION Sodium Chloride 10 ml 02/26/19 09:00 03/05/19 11:18 Flush - Normal Saline IVF 10 ml Q12HR CAN Administration Sodium Chloride 10 ml 02/26/19 07:25 03/04/19 06:07 Flush - Normal Saline IVF 10 ml PRN PRN Administration Saline Flush - Exam General Appearance: NAD, awake alert Eye: PERRL, anicteric sclera Eye - other findings: Patient has erythematous left eye, noted to be scratching it. No discharge ENT: normocephalic atraumatic, no oropharyngeal lesions Neck: supple, symmetric, no JVD, no thyromegaly Heart: RRR, no murmur, no gallops, no rubs Respiratory: CTAB, no wheezes, no rales, no ronchi Gastrointestinal: soft, non-tender, non-distended, normal bowel sounds Extremities: no cyanosis, no clubbing, no edema Skin: normal turgor, no lesions, no rashes Neurological: cranial nerve grossly intact, normal sensation to touch, no focal deficits, no new deficit Musculoskeletal: normal tone, normal strength, no muscle wasting Psychiatric: normal affect, normal behavior, A&O x 3, oriented to person Hosp A/P - Plan Abd X ray 02/28: Dobhuff tube in place Brain MRI 02/23: NPH Brain CT: possible NPH? Venous doppler: occlusive thrombus LLE Chest X ray 02/25: cardiomegaly Venous US RUE: superficial thrombus This is a 78 year old male with PMH of Hypertension, diabetes mellitus, diabetic neuropathy, hyperlipidemia, chronic pain, osteoarthritis, and blood clots who presented with altered mental status after seizure #Seizure #Acute metabolic encephalopathy post seizure #NPH - IV keppra stopped. Mental status improved after IV fluids. EEG showed diffuse slowing. repeat EEG ordered 03/04 read pending - patient still mostly non-verbal - patient going for external drain placement today to see if that will improve his mental status Left eye conjunctivitis versus blepharitis - improved with tears, however will try cipro eye drops since still red SIRS - resolved - Patient had fever on the 13th of 100.1, tachycardia. UA ordered which was normal. CHest X ray normal, blood cultures normal. , influenza negative, repeat blood cultures showing 1/2 staph aureus, repeat bloood cultures 03/03 negative. -ID consulted, discontinued antibiotics. Per neuro ,may consider shunt placement ALFREDO- improving - creatinine improved after hydration. Discontinued antibiotics Tachycardia - resolved - EKG showing NSR with bundle branch block - troponins were elevated, but downtrended. Repeat troponin 0.1 downtrended. ECHO showed hypokinetic mid to distal anterior wall. Conserative management per cardiology - K 3.5, keep > 4, Mg 1.9, replace to > 2 - s/p heparin drip, on aspirin, statin, beta neha - blood culture from 02/22 negative, repeat blood culture on 02/25 showed 1/2 coag negative staff. REpeat cultures negative - repeat UA negative Atrial fibrillation - off rate control meds, was on diltiazem and amiodarone drip - held lovenox in anticipation of procedure DVT LLE - has IVC filter -on xarelto at home Leukocytosis - resolved Malnutrition - on tube feeds, changing to continuous tube feeding. Speech following and may recommend ice chips Hyperglycemia - blood sugars 190 - 240 on medium dose sliding scale Disposition: external drain placement today Diet: tube feeds DVT prophylaxis: lovenox
[2019-03-05 20:39] LABS: CSF Source CSF; Clarity Clear (Clear); Tube # CUP
[2019-03-05 20:40] LABS: Unspun CSF Color COLORLESS (Colorless)
[2019-03-05 20:43] LABS: WBC/NonHematics Count - Manual 2 /cumm (0-5)
[2019-03-05 20:44] LABS: RBC Count - Manual 11 /cumm (None Seen)
[2019-03-05 20:46] LABS: Color Of CSF Supernatant COLORLESS (Colorless); Tube # 2
[2019-03-05 20:59] LABS: CSF, Glucose 132 mg/dl (40-70); CSF, Protein 24 mg/dL (15-40)
[2019-03-05] MEDS: CEFAZOLIN 2 GM in Premix Bag 1 BAG IVPB SCH (21:53)
[2019-03-05] MEDS: Atorvastatin Calcium 20 MG TAB PO SCH (21:53)
[2019-03-06] MEDS: HumaLOG 300 UNITS/3 ML VIAL SC PRN ×4 (00:47→18:03)
[2019-03-06] MEDS: Acetaminophen 325 MG TAB PO PRN ×2 (02:06→09:59)
--- NOTE | 2019-03-06 02:07 | OP ---
DATE OF PROCEDURE: 03/05/2019 NEPHROLOGY NURSE: Marizol Krueger PA-C. PREOPERATIVE INDICATIONS: Prevent neurological deterioration. PREOPERATIVE DIAGNOSES: Communicating hydrocephalus, mental status deterioration, unknown etiology. POSTOPERATIVE DIAGNOSES: Communicating hydrocephalus, mental status deterioration, unknown etiology. PROCEDURE PERFORMED: Right-sided karlie hole for placement of external ventricular drain (ventriculostomy catheter). PREOPERATIVE MEDICATIONS: Ancef 2 g IV. DRAIN NUMBER: One. DRAIN TYPE: External ventricular. DESCRIPTION OF PROCEDURE: The patient was brought to the operating room. LMA anesthesia was induced. His head was positioned on a donut-shaped headrest. Hair was removed from the right side of the scalp with electric clippers. The scalp was sterilely prepped and draped. We made a curvilinear incision anterior to the coronal suture centered in the midpupillary line on the right side. We folded back a tiny flap and controlled bleeding with bipolar and monopolar cautery. We used a high-speed drill with the perforating bit to fashion a karlie hole anterior to the coronal suture and then we coagulated the dura. We incised the dura with a 15- blade knife and opened it in multiple leaflets. We gently coagulated the jareth and made an incision on the jareth. We then brought our external ventricular drain catheter into the field. With a stylet inside the catheter, we advanced into the frontal horn of the right lateral ventricle. I had a depth of 4 cm. CSF egress was noted. We advanced to 5.5 cm. We tunneled the distal end of the drain posteriorly through a separate stab incision and connected to an external ventricular drain system. We closed our incision in anatomical layers. We reinforced the exit of the drain with sutures and we tacked down to the scalp to make sure it would not budge. We left the external ventricular drain open at 10 cm of water. Head irrigated with bacitracin irrigation before closure. We placed sterile dressings. This was a clean case, no contamination. Job ID: [id number]
[2019-03-06] MEDS: Morphine 2 MG/ML SYRINGE SLOW IVP PRN (03:10)
[2019-03-06 05:45] LABS: Hemoglobin 13.1 g/dL (14.0-18.0); Mean Corpuscular HGB CONC 34.7 g/dL (32.0-36.0); Mean Corpuscular Hemoglobin 32.6 pg (27.0-31.0); Mean Corpuscular Volume 93.7 fL (78.0-98.0); Mean Platelet Volume 9.5 fL (7.4-10.4); Platelet Count 191 thou/uL (130-400); RBC Distribution Width 11.4 % (11.5-14.5); Red Blood Cell (RBC) Count 4.02 mill/uL (4.70-6.10); White Blood Cell (WBC) Count 10.8 thou/uL (4.8-10.8)
[2019-03-06] MEDS: CEFAZOLIN 2 GM in Premix Bag 1 BAG IVPB SCH ×3 (05:50→21:22)
[2019-03-06 06:05] LABS: Anion Gap 12 mmol/L (10-20); BUN (Urea Nitrogen) 17 mg/dL (8.4-25.7); Calc. Creatinine Clearance 46 mL/min (70-130); Calcium 9.4 mg/dL (7.8-10.44); Carbon Dioxide 31 mmol/L (23-31); Chloride 100 mmol/L (98-107); Estimated GFR-MDRD 57; Glucose 206 mg/dL (83-110); Potassium 3.6 mmol/L (3.5-5.1); Sodium 139 mmol/L (136-145)
--- NOTE | 2019-03-06 07:52 | CT ---
PRELIMINARY REPORT/[facility]/EMERGENCY AFTER HOURS PROCEDURE PROCEDURE INFORMATION: Exam: CT Head Without Contrast Exam date and time: 03/06/2019 4:04 AM Clinical history: 78 years old, male; Device placement; Cerebral fluid drainage device or shunt; Prior surgery; Surgery date: Post-operative (0-2 days); Patient HX: S/P craniotomy TECHNIQUE: Imaging protocol: Computed tomography of the head without contrast. COMPARISON: CT Brain WO Con 02/22/2019 12:04 PM FINDINGS: Brain: Volume loss and chronic small vessel ischemic change. Postoperative nondependent right frontal pneumocephalus. No intracranial hemorrhage. Ventricles: Interval right frontal karlie hole with placement of right frontal shunt catheter, the tip of which is in the anterior third ventricle. Ventriculomegaly which has increased compared to the prior study. Bones/joints: Unremarkable. No acute fracture. Sinuses: Visualized sinuses are unremarkable. No fluid levels. Mastoid air cells: Visualized mastoid air cells are well aerated. Soft tissues: Unremarkable. IMPRESSION: 1. Interval right frontal karlie hole with placement of right frontal shunt catheter, the tip of which is in the anterior third ventricle. 2. Ventriculomegaly which has increased compared to the prior study. Thank you for allowing us to participate in the care of your patient. Dictated and Authenticated by: Ankush Amor MD 03/06/2019 4:31 AM Central Time ([place] & [place]) FINAL REPORT HEAD CT WITHOUT CONTRAST: Date: 03/06/2019 COMPARISON: 02/22/2019 HISTORY: Evaluate brain following craniotomy FINDINGS: I agree with the preliminary report. A ventriculostomy tube is present in the right frontal region, extending into the region of the ventral aspect of the third ventricle. There is extensive periventricular, deep, and subcortical white matter hypodensity suggesting small vessel disease. Ther e is right frontal pneumocephalus measuring up to 1 cm in AP dimension anterior to the right frontal lobe. No significant midline shift or mass effect. No intracranial hemorrhage. Prominence of the lateral ventricles noted, similar when compared to the 02/22/2019 examination. IMPRESSION: Postoperative changes as detailed above. Transcribed Date/Time: 03/06/2019 8:32 AM
--- NOTE | 2019-03-06 08:13 | PRG ---
DATE OF SERVICE: 03/06/2019 We took Mr. Godinez to the operating room yesterday. Once we had the dura open, the brain was under no pressure whatsoever. Even the patient is with normal-pressure hydrocephalus, the cortex of the brain is pushed out under the dura typically, but that was not the case. We could see a pulsating cortex multiple millimeters from the dura with some CSF space around it. This indicated that there was no pressure to release at all. We passed a catheter into the frontal horn of the right lateral ventricle and the CSF came out clear and under no pressure. Overnight at a setting of 10 cm of water, there has been no CSF egress further indicating no need for shunting. I do not see any fevers recorded in the last 24 hours. The other vital signs have been stable. Mr. Godinez is awake. He follows commands of four extremities. He says one word and then stops talking. He keeps his eyes open more today than he did yesterday, but he has been waxing and waning for the last 10 days in the hospital. Unfortunately, I do not think we are any closer to a final diagnosis, but I believe that we have ruled out hydrocephalus as a cause for his neurological decline. We now have access to the CSF space and will be sending cultures on a daily basis. We will ask Dr. Menchaca to think about viral PCR testing that could be done and we may even have to entertain the idea of testing for 14-3-3 or NSE. We will leave this drain in as long as we need to continue testing CSF and then remove it. It is unlikely that he is going to warrant any shunting. Job ID: [id number] [facility]
[2019-03-06] MEDS ORDERED: Sterile Water 0 ML ONE (09:58)
[2019-03-06] MEDS: Metoprolol Tartrate 25 MG TAB PER TUBE SCH (09:58)
[2019-03-06] MEDS: Famotidine 40 MG/5 ML Oral Suspension PER TUBE SCH (10:05)
--- NOTE | 2019-03-06 10:16 | PRG ---
DATE OF SERVICE: 03/06/2019 SUBJECTIVE: Cristobal Godinez was transferred to the ICU after he had a drain placed in the CSF. Appears to be relatively clear, no infection, bacterial. OBJECTIVE: VITAL SIGNS: Blood pressure 136/74, saturations 94%, and respiratory rate 18. GENERAL: He is awake and responsive, still encephalopathic. CHEST: Decreased breath sounds. No wheezing. CARDIAC: Normal S1 and S2. No gallops. ABDOMEN: No mass. LABORATORY DATA: White count 10,000, hemoglobin 13, hematocrit 37, and platelet count is normal. Lytes are normal. ASSESSMENT: Ventriculostomy tube in place, right frontal area; encephalopathy, etiology unclear; dysphagia. PLAN: Continue supportive care. Pulmonary will follow while in the ICU. He is probably going to eventually require a PEG. Job ID: [id number]
[2019-03-06 17:22] LABS: CSF Source CSF; Clarity Clear (Clear); RBC Count - Manual 3 /cumm (None Seen); WBC/NonHematics Count - Manual 1 /cumm (0-5)
[2019-03-06] MEDS ORDERED: Sterile Water 10 ML ONE (19:18)
--- NOTE | 2019-03-06 21:20 | PDOC.HOSPP ---
- Subjective Encounter Date: 03/06/19 Encounter Time: 18:00 Subjective: Patient is s/p external ventricular drain placement. Patient mostly aphasic, not sa phillip much. Complains of right hand hurting per nurse and pain when you try to lift up hand. - Objective Vital Signs & Weight: Vital Signs (12 hours) Temp Pulse Pulse BP BP Pulse Ox Pulse Ox 03/06/19 20:00 98.2 F 03/06/19 16:00 98.7 F 03/06/19 14:43 83 80 98/56 L 93/57 L 03/06/19 12:00 98.6 F 03/06/19 09:20 81 83 122/71 137/80 95 97 Weight Admit Weight 155 lb Weight 143 lb 8.335 oz Most Recent Monitor Data Heart Rate from ECG 85 NIBP 146/86 NIBP BP-Mean 106 Respiration from ECG 24 SpO2 93 I&O: 03/05/19 03/06/19 03/07/19 06:59 06:59 06:59 Intake Total 862 260 284 Output Total 1503 1282 Balance 571 -2894 -234 Result Diagrams: 03/06/19 05:33 03/06/19 05:33 Additional Labs: Accuchecks 03/06/19 03/06/19 03/06/19 18:03 12:25 05:51 POC Glucose 202 H 157 H 187 H 03/06/19 00:40 POC Glucose 242 H Hospitalist ROS - Medication Medications: Active Medications Generic Name Dose Route Start Last Admin Trade Name Freq PRN Reason Stop Dose Admin Acetaminophen 650 mg 02/22/19 13:46 03/01/19 00:02 Tylenol DE 650 mg Q4H PRN Administration Headache/Fever/Mild Pain (1-3) Acetaminophen 650 mg 03/02/19 05:11 03/06/19 09:59 Tylenol PO 650 mg Q4H PRN Administration Headache/Fever or Pain Lipase/Protease/Amylase 1 cap 03/02/19 08:01 03/02/19 10:08 Jenelle Avelar [id number] FS 1 cap .PER PROTOCOL PRN Administration TUBE OCCLUSION PROTOCOL Atorvastatin Calcium 20 mg 02/27/19 21:00 03/05/19 21:53 Lipitor PO 20 mg HS CAN Administration Ciprofloxacin 1 drop 03/05/19 22:00 03/06/19 20:18 Ciprofloxacin Hcl L EYE 1 drop Q2HR CAN Administration Famotidine 20 mg 03/06/19 09:00 03/06/19 10:05 Pepcid PER TUBE 20 mg DAILY CAN Administration Diltiazem HCl 125 mg/ 125 mls @ 5 mls/hr 02/25/19 19:00 02/25/19 19:13 Miscellaneous Medication 1 IVPB 125 mls each/ Sodium Chloride INF CAN Administration Protocol Cefazolin Sodium/Dextrose 2 gm 50 mls @ 100 mls/hr 03/05/19 22:00 03/06/19 15 :25 / Device IVPB 50 mls Q8HR CAN Administration Insulin Human Lispro 0 units 02/22/19 14:44 03/06/19 18:03 Humalog SC 2 unit .BEDTIME SLIDING SC PRN Administration Bedtime Correctional Scale Insulin Human Lispro 0 units 03/04/19 13:41 03/06/19 13:08 Humalog SC 2 unit .MODERATE SLIDING SC PRN Administration Moderate Correctional Scale Metoprolol Tartrate 37.5 mg 03/02/19 09:00 03/06/19 09:58 Lopressor PER TUBE 37.5 mg DAILY CAN Administration Morphine Sulfate 2 mg 03/05/19 20:11 03/06/19 03:10 Morphine SLOW IVP 2 mg Q1H PRN Administration Moderate breakthrough pain Sodium Bicarbonate 650 mg 03/02/19 08:01 03/02/19 10:08 Bicarbonate, Sodium PER TUBE 650 mg .PER PROTOCOL PRN Administration ENTERAL TUBE OCCLUSION Sodium Chloride 10 ml 02/26/19 09:00 03/06/19 10:05 Flush - Normal Saline IVF 10 ml Q12HR CAN Administration - Exam General Appearance: NAD, awake alert General - other findings: diaphoretic Eye: PERRL, anicteric sclera Eye - other findings: improved erythema and itchiness ENT: normocephalic atraumatic, no oropharyngeal lesions, dry oral mucosa Neck: supple, symmetric, no JVD, no thyromegaly Heart: RRR, no murmur, no gallops, no rubs Respiratory: CTAB, no wheezes, no rales, no ronchi Gastrointestinal: soft, non-tender, non-distended Extremities - other findings: Mild erythema of right finger, hand with swelling and tenderness. No warmth Skin - other findings: pale Neurological - other findings: tracks you with eyes. Follows minimal commands Musculoskeletal: normal tone, normal strength Psychiatric: flat affect Hosp A/P - Plan Abd X ray 02/28: Dobhuff tube in place Brain MRI 02/23: NPH Brain CT: possible NPH? Venous doppler: occlusive thrombus LLE Chest X ray 02/25: cardiomegaly Venous US RUE: superficial thrombus This is a 78 year old male with PMH of Hypertension, diabetes mellitus, diabetic neuropathy, hyperlipidemia, chronic pain, osteoarthritis, and blood clots who presented with altered mental status after seizure . Became aphasic after. Had LP with negative cultures however mental status per family improved with LP, therefore given NPH history was taken to OR for EVD placement and sending of daily cultures to see if infection apparent #Seizure #Acute metabolic encephalopathy/aphasia post seizure #NPH - IV keppra stopped. Mental status improved after IV fluids. EEG showed diffuse slowing 02/23 and 02/28. Repeat EEG ordered 03/04 read pending - patient still mostly non-verbal. S/p EVD placement 03/05, preliminary CSF cultures negative - per neurology consider viral PCR testing, 14-3-3 or NSE Left eye conjunctivitis - continue cipro eye drops day 2 SIRS - resolved - Patient had fever on the 13th of 100.1, tachycardia. UA ordered which was normal. CHest X ray normal, blood cultures normal. , influenza negative, repeat blood cultures showing 1/2 staph aureus, repeat bloood cultures 03/03 negative. -ID consulted, discontinued antibiotics. Per neuro ,may consider shunt placement ALFREDO- improving - creatinine improved after hydration. Discontinued antibiotics Tachycardia - resolved - EKG showing NSR with bundle branch block - troponins were elevated, but downtrended. Repeat troponin 0.1 downtrended. ECHO showed hypokinetic mid to distal anterior wall. Conserative management per cardiology - s/p heparin drip, on aspirin, statin, beta neha - blood culture from 02/22 negative, repeat blood culture on 02/25 showed 1/2 coag negative staff. REpeat cultures negative - repeat UA negative Atrial fibrillation - off rate control meds, was on diltiazem and amiodarone drip - held lovenox in anticipation of procedure DVT LLE - has IVC filter -on xarelto at home Malnutrition - on tube feeds, changing to continuous tube feeding. Speech following and may recommend ice chips Hyperglycemia - blood sugars 187-202 on medium dose sliding scale Disposition: pending improvement of mental status. Diet: tube feeds DVT prophylaxis: lovenox
[2019-03-06] MEDS: Atorvastatin Calcium 20 MG TAB PO SCH (21:24)
--- NOTE | 2019-03-06 22:50 | RAD ---
EXAM: 3 views of the right hand COMPARISON: None HISTORY: Hand pain with extension FINDINGS: 3 views of the right hand shows no evidence of acute fracture or dislocation. No degenerati ve changes are seen in the hand. Moderate degenerative changes are seen in the wrist. No soft tissue swelling is present. A small radiopaque foreign body is seen near the interphalangeal joint of the thumb. Vascular calcifications are present. IMPRESSION: No evidence of acute osseous abnormality.
[2019-03-07] MEDS: HumaLOG 300 UNITS/3 ML VIAL SC PRN ×5 (00:33→20:58)
[2019-03-07 04:50] LABS: Band 3 % (5-11); Elliptocytes SLIGHT = 2-5 cells (100X) (0-1/hpf); Hemoglobin 13.6 g/dL (14.0-18.0); Lymphocytes 9 % (21-51); MDiff Complete? YES; Mean Corpuscular HGB CONC 34.6 g/dL (32.0-36.0); Mean Corpuscular Hemoglobin 32.5 pg (27.0-31.0); Mean Corpuscular Volume 93.8 fL (78.0-98.0); Mean Platelet Volume 9.5 fL (7.4-10.4); Monocytes 7 % (0-10); Neutrophil 81 % (42-75); Platelet Count 221 thou/uL (130-400); Platelet Morphology Comment Appears Adequate; RBC Distribution Width 11.5 % (11.5-14.5)
[2019-03-07] MEDS: Morphine 2 MG/ML SYRINGE SLOW IVP PRN (04:50)
[2019-03-07 04:58] LABS: ALT (SGPT) 30 U/L (8-55); AST (SGOT) 33 U/L (5-34); Albumin 3.2 g/dL (3.4-4.8); Alkaline Phosphatase 146 U/L (40-110); Anion Gap 13 mmol/L (10-20); BUN (Urea Nitrogen) 16 mg/dL (8.4-25.7); Bilirubin, Total 0.5 mg/dL (0.2-1.2); Calc. Creatinine Clearance 44 mL/min (70-130); Calcium 9.6 mg/dL (7.8-10.44); Carbon Dioxide 30 mmol/L (23-31); Chloride 100 mmol/L (98-107); Estimated GFR-MDRD 55; Globulin 3.3 g/dL (2.4-3.5); Glucose 266 mg/dL (83-110); Potassium 3.2 mmol/L (3.5-5.1); Protein, Total 6.5 g/dL (5.8-8.1); Sodium 140 mmol/L (136-145)
[2019-03-07] MEDS: CEFAZOLIN 2 GM in Premix Bag 1 BAG IVPB SCH ×3 (06:21→21:00)
--- NOTE | 2019-03-07 08:32 | PRG ---
DATE OF SERVICE: 03/07/2019 The patient is a 78-year-old male who is currently being evaluated for his altered mental status. Etiology remains unclear. He did have hydrocephalus and an EVD was placed by Dr. Carver 2 days ago. He reports in the OR during placement, there was very low pressure and this is unlikely to represent NPH. Since placement of the EVD, the patient has been neurologically unchanged. His CSF culture thus far have been negative. On exam this morning, the patient is awake. His pupils are equal and reactive to light. He is spontaneously moving all 4, but he is not following commands for me. He is not talking. His incisions are clean, dry, and intact. We will continue to send daily CSF culture and leave the EVD drain open at 10 cm of water. I anticipate removal of the EVD some time next week if no neurologic change. We will continue to follow closely along with the Medical and ID Teams for ongoing evaluation of his continued altered mental status. Job ID: [id number] [facility]
[2019-03-07] MEDS: Metoprolol Tartrate 25 MG TAB PER TUBE SCH (08:42)
[2019-03-07] MEDS: Famotidine 40 MG/5 ML Oral Suspension PER TUBE SCH (08:42)
--- NOTE | 2019-03-07 09:50 | PRG ---
DATE OF SERVICE: 03/07/2019 SUBJECTIVE: This morning, the patient remains encephalopathic. OBJECTIVE: VITAL SIGNS: Pulse 83, blood pressure 100/60, respiratory rate 18, saturations are 99%. CHEST: Decreased breath sounds. No wheezing. CARDIAC: Normal S1 and S2. No gallops. ASSESSMENT: 1. Encephalopathy, etiology unclear. 2. Mild azotemia, advanced age. PLAN: At this stage, continue supportive care. Continue observation in the ICU with ventriculostomy in place. Pulmonary will follow. Job ID: [id number]
[2019-03-07 11:11] LABS: CSF Source CSF; Clarity Clear (Clear)
[2019-03-07 11:42] LABS: RBC Count - Manual 77 /cumm (None Seen)
[2019-03-07 11:43] LABS: WBC/NonHematics Count - Manual 3 /cumm (0-5)
--- NOTE | 2019-03-07 16:31 | PRG ---
DATE OF SERVICE: 03/07/2019 SUBJECTIVE: Mr. Godinez has an unchanged neurologic exam. His eyes are open, but he is sleepy. He will not reliably track the examiner, but intermittently follows commands. His drain is working, but his CSF is under quite low pressure. We sent repeat CSF cultures today and no positive findings has been identified thus far. I updated the patient's . Job ID: [id number]
--- NOTE | 2019-03-07 17:18 | PDOC.HOSPP ---
- Subjective Encounter Date: 03/07/19 Encounter Time: 11:45 Subjective: Mr. Godinez was seen today in follow-up of metabolic encephalopathy. His and daughter are at bedside. He is not back to baseline. He will stare at you, but will not speak. - Objective Vital Signs & Weight: Vital Signs (12 hours) Temp Pulse Ox 03/07/19 16:00 98.0 F 03/07/19 12:00 98.4 F 03/07/19 07:23 92 L 03/07/19 07:00 97.7 F Weight Admit Weight 155 lb Weight 139 lb 5.314 oz Most Recent Monitor Data Heart Rate from ECG 99 NIBP 144/60 NIBP BP-Mean 88 Respiration from ECG 11 SpO2 95 I&O: 03/06/19 03/07/19 03/08/19 06:59 06:59 06:59 Intake Total 260 1049 120 Output Total 1503 2167 674 [facility] -[phone] -554 Result Diagrams: 03/07/19 04:25 03/07/19 04:25 Additional Labs: Accuchecks 03/07/19 03/07/19 03/07/19 16:08 09:48 06:25 POC Glucose 236 H 230 H 285 H 03/07/19 03/06/19 00:25 18:03 POC Glucose 275 H 202 H Hospitalist ROS - Medication Medications: Active Medications Generic Name Dose Route Start Last Admin Trade Name Freq PRN Reason Stop Dose Admin Acetaminophen 650 mg 02/22/19 13:46 03/01/19 00:02 Tylenol [place] 650 mg Q4H PRN Administration Headache/Fever/Mild Pain (1-3) Acetaminophen 650 mg 03/02/19 05:11 03/06/19 09:59 Tylenol PO 650 mg Q4H PRN Administration Headache/Fever or Pain Lipase/Protease/Amylase 1 cap 03/02/19 08:01 03/02/19 10:08 Jenelle Avelar [id number] FS 1 cap .PER PROTOCOL PRN Administration TUBE OCCLUSION PROTOCOL Atorvastatin Calcium 20 mg 02/27/19 21:00 03/06/19 21:24 Lipitor PO 20 mg HS CAN Administration Ciprofloxacin 1 drop 03/05/19 22:00 03/07/19 16:02 Ciprofloxacin Hcl L EYE 1 drop Q2HR CAN Administration Famotidine 20 mg 03/06/19 09:00 03/07/19 08:42 Pepcid PER TUBE 20 mg DAILY CAN Administration Diltiazem HCl 125 mg/ 125 mls @ 5 mls/hr 02/25/19 19:00 02/25/19 19:13 Miscellaneous Medication 1 IVPB 125 mls each/ Sodium Chloride INF CAN Administration Protocol Cefazolin Sodium/Dextrose 2 gm 50 mls @ 100 mls/hr 03/05/19 22:00 03/07/19 14 :07 / Device IVPB 50 mls Q8HR CAN Administration Insulin Human Lispro 0 units 02/22/19 14:44 03/07/19 16:11 Humalog SC 2 unit .BEDTIME SLIDING SC PRN Administration Bedtime Correctional Scale Insulin Human Lispro 0 units 03/04/19 13:41 03/07/19 06:23 Humalog SC 6 unit .MODERATE SLIDING SC PRN Administration Moderate Correctional Scale Metoprolol Tartrate 37.5 mg 03/02/19 09:00 03/07/19 08:42 Lopressor PER TUBE 37.5 mg DAILY CAN Administration Morphine Sulfate 2 mg 03/05/19 20:11 03/07/19 04:50 Morphine SLOW IVP 2 mg Q1H PRN Administration Moderate breakthrough pain Sodium Bicarbonate 650 mg 03/02/19 08:01 03/02/19 10:08 Bicarbonate, Sodium PER TUBE 650 mg .PER PROTOCOL PRN Administration ENTERAL TUBE OCCLUSION Sodium Chloride 10 ml 02/26/19 09:00 03/07/19 08:43 Flush - Normal Saline IVF 10 ml Q12HR CAN Administration - Exam Eye: PERRL, anicteric sclera Heart: RRR, no murmur, no gallops, no rubs, normal peripheral pulses Respiratory: CTAB, no wheezes, no rales, no ronchi, normal chest expansion, no tachypnea, normal percussion Gastrointestinal: soft, non-tender, non-distended, normal bowel sounds, no palpable masses, no hepatomegaly, no splenomegaly Extremities: no cyanosis, no clubbing, no edema Neurological: no weakness (but will not follow commands, and is aphasic) Hosp A/P (1) Metabolic encephalopathy Code(s): G93.41 - METABOLIC ENCEPHALOPATHY Status: Acute (2) Seizure disorder Code(s): G40.909 - EPILEPSY, UNSP, NOT INTRACTABLE, WITHOUT STATUS EPILEPTICUS Status: Acute (3) DM (diabetes mellitus) Code(s): E11.9 - TYPE 2 DIABETES MELLITUS WITHOUT COMPLICATIONS Status: Chronic Qualifiers: Diabetes mellitus type: type 2 Diabetes mellitus half-way insulin use: without quality intern use Diabetes mellitus complication status: with neurologic complications Diabetes mellitus complication detail: with polyneuropathy Qualified Code(s): E11.42 - Type 2 diabetes mellitus with diabetic polyneuropathy (4) HTN (hypertension) Code(s): I10 - ESSENTIAL (PRIMARY) HYPERTENSION Status: Chronic Qualifiers: Hypertension type: essential hypertension Qualified Code(s): I10 - Essential (primary) hypertension - Plan * Metabolic encephalopathy- ? etiology * DM-blood glucose is a bit elevated- will add low dose Lantus * HTN- blood pressure is stable
[2019-03-07] MEDS: Atorvastatin Calcium 20 MG TAB PO SCH (20:25)
[2019-03-07] MEDS: Insulin Glargine 8 UNITS in Pre-Filled Syringe 1 EACH SC SCH (20:57)
[2019-03-08] MEDS: diphenhydrAMINE 25 MG CAP PO PRN (02:40)
[2019-03-08] MEDS: HumaLOG 300 UNITS/3 ML VIAL SC PRN ×4 (04:10→20:50)
[2019-03-08 04:44] LABS: Band 3 % (5-11); Eosinophils 1 % (0-10); Hemoglobin 13.6 g/dL (14.0-18.0); Lymphocytes 7 % (21-51); MDiff Complete? YES; Mean Corpuscular HGB CONC 34.1 g/dL (32.0-36.0); Mean Corpuscular Hemoglobin 32.3 pg (27.0-31.0); Mean Platelet Volume 9.5 fL (7.4-10.4); Metamyelocyte 1 % (0-0); Monocytes 2 % (0-10); Neutrophil 86 % (42-75); Platelet Count 241 thou/uL (130-400); Platelet Morphology Comment Appears Adequate; RBC Distribution Width 11.4 % (11.5-14.5); RBC Morphology Normal; Red Blood Cell (RBC) Count 4.19 mill/uL (4.70-6.10); White Blood Cell (WBC) Count 10.7 thou/uL (4.8-10.8)
[2019-03-08 04:52] LABS: Anion Gap 12 mmol/L (10-20); BUN (Urea Nitrogen) 17 mg/dL (8.4-25.7); Calc. Creatinine Clearance 41 mL/min (70-130); Calcium 9.9 mg/dL (7.8-10.44); Carbon Dioxide 31 mmol/L (23-31); Chloride 101 mmol/L (98-107); Estimated GFR-MDRD 52; Glucose 320 mg/dL (83-110); Potassium 3.2 mmol/L (3.5-5.1); Sodium 141 mmol/L (136-145)
[2019-03-08] MEDS: CEFAZOLIN 2 GM in Premix Bag 1 BAG IVPB SCH ×3 (05:16→21:05)
--- NOTE | 2019-03-08 08:21 | PRG ---
DATE OF SERVICE: 03/08/2019 The patient has had no overnight events, remained neurologically stable on his exam. This morning, he is actually a little bit more alert. His eyes are open. He does tell me his name and he is moving all 4s on command. His CSF cultures remain negative for any growth. Continues to be unclear etiology for his ongoing mental status changes. We will continue to follow along with the team. Job ID: [id number]
[2019-03-08] MEDS: Metoprolol Tartrate 25 MG TAB PER TUBE SCH (08:34)
[2019-03-08 09:11] LABS: CSF Source CSF
[2019-03-08 09:13] LABS: Clarity Hazy (Clear)
[2019-03-08] MEDS: Famotidine 40 MG/5 ML Oral Suspension PER TUBE SCH (10:07)
--- NOTE | 2019-03-08 10:17 | PRG ---
DATE OF SERVICE: 03/08/2019 SUBJECTIVE: Cristobal Godinez this morning still encephalopathic. OBJECTIVE: VITAL SIGNS: Temperature 98, blood pressure 120/80, respiratory rate 18, pulse 80. CHEST: No wheezing. CARDIAC: Normal S1 and S2. No gallops. ABDOMEN: No masses. LABORATORY DATA: Glucose slightly elevated to 320. Lytes are normal. Otherwise, creatinine 1.32. Pleural fluid so far negative. IMPRESSION: 1. Encephalopathy, drain. On Cardizem and Ancef. 2. Insulin. Supportive care. 3. We will follow in the ICU. Job ID: [id number]
--- NOTE | 2019-03-08 10:27 | PDOC.HOSPP ---
- Subjective Encounter Date: 03/08/19 Encounter Time: 10:25 Subjective: Mr. Godinez was seen today in follow-up of altered mental status. He was reported to have been more awake and alert this morning. He was able to say his name and that he was in the hospital. He did not wake up for me. - Objective Vital Signs & Weight: Vital Signs (12 hours) Temp Pulse Ox 03/08/19 08:00 98.5 F 96 03/08/19 04:00 98.3 F 03/08/19 00:00 98 F Weight Admit Weight 155 lb Weight 139 lb 5.314 oz Most Recent Monitor Data Heart Rate from ECG 99 NIBP 118/80 NIBP BP-Mean 92 Respiration from ECG 21 SpO2 97 I&O: 03/07/19 03/08/19 03/09/19 06:59 06:59 06:59 Intake Total 1049 1666 60 Output Total 2167 1637 190 Balance -1118 29 -130 Result Diagrams: 03/08/19 04:20 03/08/19 04:20 Additional Labs: Accuchecks 03/08/19 03/07/19 03/07/19 04:11 20:52 16:08 POC Glucose 296 H 224 H 236 H Hospitalist ROS - Medication Medications: Active Medications Generic Name Dose Route Start Last Admin Trade Name Cesar PRN Reason Stop Dose Admin Acetaminophen 650 mg 02/22/19 13:46 03/01/19 00:02 Tylenol NM 650 mg Q4H PRN Administration Headache/Fever/Mild Pain (1-3) Acetaminophen 650 mg 03/02/19 05:11 03/06/19 09:59 Tylenol PO 650 mg Q4H PRN Administration Headache/Fever or Pain Lipase/Protease/Amylase 1 cap 03/02/19 08:01 03/02/19 10:08 Jenelle Avelar [id number] FS 1 cap .PER PROTOCOL PRN Administration TUBE OCCLUSION PROTOCOL Atorvastatin Calcium 20 mg 02/27/19 21:00 03/07/19 20:25 Lipitor PO 20 mg HS CAN Administration Ciprofloxacin 1 drop 03/05/19 22:00 03/08/19 10:07 Ciprofloxacin Hcl L EYE 1 drop Q2HR CAN Administration Diphenhydramine HCl 25 mg 02/22/19 13:50 03/08/19 02:40 Benadryl PO 25 mg Q6H PRN Administration Itching & Insomnia Famotidine 20 mg 03/06/19 09:00 03/08/19 10:07 Pepcid PER TUBE 20 mg DAILY CAN Administration Diltiazem HCl 125 mg/ 125 mls @ 5 mls/hr 02/25/19 19:00 02/25/19 19:13 Miscellaneous Medication 1 IVPB 125 mls each/ Sodium Chloride INF CAN Administration Protocol Cefazolin Sodium/Dextrose 2 gm 50 mls @ 100 mls/hr 03/05/19 22:00 03/08/19 05 :16 / Device IVPB 50 mls Q8HR CAN Administration Insulin Glargine 8 units/ 0.08 mls @ 0 mls/hr 03/07/19 21:00 03/07/19 20:57 Miscellaneous Medication SC 0.08 mls HS CAN Administration Insulin Human Lispro 0 units 02/22/19 14:44 03/07/19 16:11 Humalog SC 2 unit .BEDTIME SLIDING SC PRN Administration Bedtime Correctional Scale Insulin Human Lispro 0 units 03/04/19 13:41 03/08/19 04:10 Humalog SC 6 unit .MODERATE SLIDING SC PRN Administration Moderate Correctional Scale Metoprolol Tartrate 37.5 mg 03/02/19 09:00 03/08/19 08:34 Lopressor PER TUBE 37.5 mg DAILY CAN Administration Morphine Sulfate 2 mg 03/05/19 20:11 03/07/19 04:50 Morphine SLOW IVP 2 mg Q1H PRN Administration Moderate breakthrough pain Sodium Bicarbonate 650 mg 03/02/19 08:01 03/02/19 10:08 Bicarbonate, Sodium PER TUBE 650 mg .PER PROTOCOL PRN Administration ENTERAL TUBE OCCLUSION Sodium Chloride 10 ml 02/26/19 09:00 03/08/19 09:00 Flush - Normal Saline IVF Not Given Q12HR CAN - Exam Eye: PERRL, anicteric sclera Heart: RRR, no murmur, no gallops, no rubs, normal peripheral pulses Respiratory: CTAB, no wheezes, no rales, no ronchi, normal chest expansion Gastrointestinal: soft, non-tender, non-distended, normal bowel sounds, no palpable masses, no hepatomegaly Extremities: no cyanosis, no clubbing, no edema Hosp A/P (1) Metabolic encephalopathy Code(s): G93.41 - METABOLIC ENCEPHALOPATHY Status: Acute (2) Seizure disorder Code(s): G40.909 - EPILEPSY, UNSP, NOT INTRACTABLE, WITHOUT STATUS EPILEPTICUS Status: Acute (3) DM (diabetes mellitus) Code(s): E11.9 - TYPE 2 DIABETES MELLITUS WITHOUT COMPLICATIONS Status: Chronic Qualifiers: Diabetes mellitus type: type 2 Diabetes mellitus senior living insulin use: without rn long term care use Diabetes mellitus complication status: with neurologic complications Diabetes mellitus complication detail: with polyneuropathy Qualified Code(s): E11.42 - Type 2 diabetes mellitus with diabetic polyneuropathy (4) HTN (hypertension) Code(s): I10 - ESSENTIAL (PRIMARY) HYPERTENSION Status: Chronic Qualifiers: Hypertension type: essential hypertension Qualified Code(s): I10 - Essential (primary) hypertension - Plan * Metabolic encephalopathy- ? etiology * CSF has been negative for evidence of infection- EEG earlier in this admission was negative for epileptiform activity. Blood cultures are negative * DM-blood glucose is a bit elevated- will add Lantus in the AM as well * Hypokalemia- replace * HTN- blood pressure is stable * Continue to monitor- ? hypoactive delirium
[2019-03-08] MEDS ORDERED: Insulin Glargine 10 UNITS in Pre-Filled Syringe 1 EACH SC SCH (10:30)
[2019-03-08] MEDS ORDERED: Potassium Chloride 40 MEQ in Sodium Chloride 0.9% 250 ML 250 ML IVPB SCH (10:45)
[2019-03-08] MEDS: Atorvastatin Calcium 20 MG TAB PO SCH (20:25)
[2019-03-08] MEDS: Insulin Glargine 8 UNITS in Pre-Filled Syringe 1 EACH SC SCH (20:49)
[2019-03-09] MEDS: HumaLOG 300 UNITS/3 ML VIAL SC PRN ×4 (04:57→22:17)
[2019-03-09] MEDS: CEFAZOLIN 2 GM in Premix Bag 1 BAG IVPB SCH ×3 (05:13→22:16)
[2019-03-09 06:18] LABS: Band 6 % (5-11); Hemoglobin 13.9 g/dL (14.0-18.0); Lymphocytes 4 % (21-51); MDiff Complete? YES; Mean Corpuscular HGB CONC 32.5 g/dL (32.0-36.0); Mean Corpuscular Hemoglobin 31.2 pg (27.0-31.0); Mean Corpuscular Volume 96.1 fL (78.0-98.0); Mean Platelet Volume 9.8 fL (7.4-10.4); Monocytes 4 % (0-10); Neutrophil 86 % (42-75); Platelet Count 259 thou/uL (130-400); Platelet Morphology Comment Appears Adequate; RBC Distribution Width 11.6 % (11.5-14.5); RBC Morphology Normal; Red Blood Cell (RBC) Count 4.47 mill/uL (4.70-6.10); White Blood Cell (WBC) Count 8.8 thou/uL (4.8-10.8)
[2019-03-09 06:35] LABS: Anion Gap 12 mmol/L (10-20); BUN (Urea Nitrogen) 19 mg/dL (8.4-25.7); Calc. Creatinine Clearance 38 mL/min (70-130); Calcium 10.3 mg/dL (7.8-10.44); Carbon Dioxide 34 mmol/L (23-31); Chloride 102 mmol/L (98-107); Estimated GFR-MDRD 49; Glucose 319 mg/dL (83-110); Potassium 3.3 mmol/L (3.5-5.1); Sodium 145 mmol/L (136-145)
[2019-03-09 07:39] LABS: CSF Source CSF; Clarity Hazy (Clear)
[2019-03-09 07:40] LABS: RBC Count - Manual 790 /cumm (None Seen); WBC/NonHematics Count - Manual 2 /cumm (0-5)
--- NOTE | 2019-03-09 07:55 | PRG ---
DATE OF SERVICE: 03/09/2019 I saw Cristobal Godinez in the ICU this morning. He has been in hospital for 2 weeks. He has had neurological decline, prompting his admission, and he has never returned to his baseline. There was concern that his ventriculomegaly was participating in his neurological deterioration. We left an external ventricular drain in place for the last three days. He has had no improvement. I do not believe hydrocephalus is participating in his neurological decline. I have to re-engage with neurology to see it they can expand the differential diagnosis. I do not see any fevers recorded in the last 24 hours. Blood pressures have been in the 110s to 150s. Mr. Godinez's examination is the same, it has been in the last 9 to 10 days. He opens his eyes, when I use his name in the room. He follows some commands. He drifts back to sleep. If he talks, it is one or two words. He does not interact in a meaningful way. Cultures were obtained from CSF over the weekend and nothing is growing. Our plan is to remove the external ventricular drain. Before doing so, I will get in touch with Dr. Menchaca regarding any last minute tests for viruses or 14-3-3 protein that could be done on the fluid before we no longer have access. Thereafter, we are going to remove the drain and sign off as I do not believe the shunt will help this person. Job ID: [id number] MTDD
[2019-03-09] MEDS ORDERED: Potassium Chloride 40 MEQ in Premix Bag 1 BAG IVPB SCH (08:15)
[2019-03-09] MEDS: Metoprolol Tartrate 25 MG TAB PER TUBE SCH (09:00)
[2019-03-09] MEDS ORDERED: Insulin Glargine 10 UNITS in Pre-Filled Syringe 1 EACH SC SCH (09:00)
[2019-03-09] MEDS ORDERED: Potassium Chloride 40 MEQ in Sodium Chloride 0.9% 250 ML 250 ML IVPB SCH (09:30)
--- NOTE | 2019-03-09 09:47 | PRG ---
DATE OF SERVICE: 03/09/2019 SUBJECTIVE: A 78-year-old gentleman. This morning, he is slightly more responsive. OBJECTIVE: VITAL SIGNS: Blood pressure 130/84, pulse respiratory rate 18. CHEST: No wheezing or crackles. CARDIAC: Normal S1 and S2. No gallops. ABDOMEN: No masses. LABORATORY DATA: Repeat CSF shows glucose 164, protein 30, still pretty much normal RBCs probably traumatic CSF. ASSESSMENT AND PLAN: 1. Encephalopathy, etiology unclear. 2. Dysphagia. Pulmonary russ, continue supportive care. Input from Infectious Disease. Eventually placement. Job ID: [id number]
--- NOTE | 2019-03-09 15:08 | RAD ---
EXAM: Supine abdomen INDICATIONS: Assess feeding tube placement COMPARISON: None. FINDINGS: Dobbhoff type feeding tube has been placed. Tube extends through the EG junction. The tip o verlies the region of the gastric antrum/pylorus. Bowel gas pattern unremarkable. Postoperative changes are noted. Degenerative spine changes. IVC filter. IMPRESSION: Feeding tube appears adequately positioned.
[2019-03-09 16:36] LABS: Ref Lab Test Ordered ENC2
[2019-03-09 16:42] LABS: Reference Lab Name LABCORP
[2019-03-09 16:43] LABS: Ref Lab Test Ordered MEASLES CSF IGG IGM
[2019-03-09] MEDS: Famotidine 40 MG/5 ML Oral Suspension PER TUBE SCH (16:46)
--- NOTE | 2019-03-09 17:31 | PRG ---
DATE OF SERVICE: 03/09/2019 SUBJECTIVE: Mr. Godinez had a drain placed, but he did not seem to improve his mental state, is still with very limited speech. He says basically monosyllabic replies to questions. He does establish eye contact but has a hard time in following commands. OBJECTIVE: VITAL SIGNS: He has been afebrile throughout the hospital stay. BP 140/90, pulse 90, respirations 19, O2 saturation 91 to 95. HEENT: He keeps his eyes open. His pupils are equal. I could not get him to follow the light or my finger. He has a hard time in following commands. He has stiffness throughout, sluggish movements. LUNGS: Symmetric air entry. HEART: S1-S2 regular rate. ABDOMEN: Soft, nondistended. LABORATORY DATA: White cell count maximum 12 now is back down to normal at 8.8, hemoglobin 13, platelets 259 with 86% neutrophils. The creatinine was normal on arrival, now is up to 1.4. His magnesium was 1.9. Total bilirubin 0.5, AST 33 , ALT 30, alkaline phosphatase 146. Ammonia was less than 12. CK is up from 436 to 1051, that is at the beginning of his admission. His albumin is down from 4.2 to 3.2, globulin 3.3, TSH 0.55. Urinalysis was not remarkable. Repeat CSF evaluation showed white cell count at 2, glucose 164. Protein has been normal after the very one. There is some miscellaneous pending tests that have been submitted today. MRI did not show any abnormalities of significance. ASSESSMENT AND DISCUSSION: 1. Type 2 diabetes. 2. Hypertension. 3. Seizure activity with a question of normal-pressure hydrocephalus, now with failed test in terms of lack of response to the ventriculostomy drain placed. Initial abnormal CSF findings but those have probably been related to the seizure activity with some mild pleocytosis. These changes have resolved in the followup studies. Still with a lack of recovery of his previous cognitive function and the concern now is with either some rapidly progressive dementia or some other forms of encephalitis. Autoimmune encephalitis is possible. Viral encephalitis will be checked including herpes simplex, West Nile. We will also check for Creutzfeldt-Vincent measles, although those are not likely since the clinical and radiological findings are not consistent. Fungal and other viral encephalitis like QUIRINO virus are not likely in the absence of a suitable CSF, MRI findings and the lack of immunosuppression. Job ID: [id number] MTDD
--- NOTE | 2019-03-09 18:46 | PDOC.HOSPP ---
- Subjective Encounter Date: 03/09/19 Encounter Time: 11:00 Subjective: Mr. Godinez was seen today in follow-up of seizure and encephalopathy. He has improved overnight. He has said a few words, and answered a few simple questions appropriately. - Objective Vital Signs & Weight: Vital Signs (12 hours) Temp Pulse Pulse BP BP Pulse Ox Pulse Ox 03/09/19 16:00 98.5 F 03/09/19 14:10 88 85 141/74 H 148/88 H 97 03/09/19 12:00 98.3 F 03/09/19 08:00 98.2 F 95 Pulse Ox 03/09/19 16:00 03/09/19 14:10 95 03/09/19 12:00 03/09/19 08:00 Weight Admit Weight 155 lb Weight 136 lb 14.513 oz Most Recent Monitor Data Heart Rate from ECG 95 NIBP 139/82 NIBP BP-Mean 101 Respiration from ECG 19 SpO2 98 I&O: 03/08/19 03/09/19 03/10/19 06:59 06:59 06:59 Intake Total 1666 2234 1117 Output Total 1637 1925 1140 Balance 29 309 -23 Result Diagrams: 03/09/19 05:48 03/09/19 05:48 Additional Labs: Accuchecks 03/09/19 03/09/19 03/09/19 17:38 09:44 04:59 POC Glucose 239 H 244 H 259 H 03/08/19 20:45 POC Glucose 242 H Hospitalist ROS - Medication Medications: Active Medications Generic Name Dose Route Start Last Admin Trade Name Freq PRN Reason Stop Dose Admin Acetaminophen 650 mg 02/22/19 13:46 03/01/19 00:02 Tylenol [place] 650 mg Q4H PRN Administration Headache/Fever/Mild Pain (1-3) Acetaminophen 650 mg 03/02/19 05:11 03/06/19 09:59 Tylenol PO 650 mg Q4H PRN Administration Headache/Fever or Pain Lipase/Protease/Amylase 1 cap 03/02/19 08:01 03/02/19 10:08 Jenelle Avelar [id number] FS 1 cap .PER PROTOCOL PRN Administration TUBE OCCLUSION PROTOCOL Atorvastatin Calcium 20 mg 02/27/19 21:00 03/08/19 20:25 Lipitor PO 20 mg HS CAN Administration Ciprofloxacin 1 drop 03/05/19 22:00 03/09/19 18:25 Ciprofloxacin Hcl L EYE 1 drop Q2HR CAN Administration Diphenhydramine HCl 25 mg 02/22/19 13:50 03/08/19 02:40 Benadryl PO 25 mg Q6H PRN Administration Itching & Insomnia Famotidine 20 mg 03/06/19 09:00 03/09/19 16:46 Pepcid PER TUBE 20 mg DAILY CAN Administration Diltiazem HCl 125 mg/ 125 mls @ 5 mls/hr 02/25/19 19:00 02/25/19 19:13 Miscellaneous Medication 1 IVPB 125 mls each/ Sodium Chloride INF CAN Administration Protocol Cefazolin Sodium/Dextrose 2 gm 50 mls @ 100 mls/hr 03/05/19 22:00 03/09/19 14 :06 / Device IVPB 50 mls Q8HR CAN Administration Insulin Glargine 8 units/ 0.08 mls @ 0 mls/hr 03/07/19 21:00 03/08/19 20:49 Miscellaneous Medication SC 0.08 mls HS CAN Administration Insulin Glargine 10 units/ 0.1 mls @ 0 mls/hr 03/09/19 09:00 03/09/19 09:07 Miscellaneous Medication SC 0.1 mls QAM CAN Administration Insulin Human Lispro 0 units 02/22/19 14:44 03/08/19 20:50 Humalog SC 2 unit .BEDTIME SLIDING SC PRN Administration Bedtime Correctional Scale Insulin Human Lispro 0 units 03/04/19 13:41 03/09/19 18:02 Humalog SC 4 unit .MODERATE SLIDING SC PRN Administration Moderate Correctional Scale Metoprolol Tartrate 37.5 mg 03/02/19 09:00 03/09/19 09:00 Lopressor PER TUBE 37.5 mg DAILY CAN Administration Morphine Sulfate 2 mg 03/05/19 20:11 03/07/19 04:50 Morphine SLOW IVP 2 mg Q1H PRN Administration Moderate breakthrough pain Sodium Bicarbonate 650 mg 03/02/19 08:01 03/02/19 10:08 Bicarbonate, Sodium PER TUBE 650 mg .PER PROTOCOL PRN Administration ENTERAL TUBE OCCLUSION Sodium Chloride 10 ml 02/26/19 09:00 03/09/19 09:07 Flush - Normal Saline IVF Not Given Q12HR CAN - Exam Eye: PERRL, anicteric sclera Heart: RRR, no murmur, no gallops, no rubs, normal peripheral pulses Respiratory: CTAB, no wheezes, no rales, no ronchi, normal chest expansion Gastrointestinal: soft, non-tender, non-distended, normal bowel sounds, no palpable masses, no hepatomegaly, no splenomegaly Extremities: no cyanosis, no edema Neurological: no focal deficits Hosp A/P (1) Metabolic encephalopathy Code(s): G93.41 - METABOLIC ENCEPHALOPATHY Status: Acute (2) Seizure disorder Code(s): G40.909 - EPILEPSY, UNSP, NOT INTRACTABLE, WITHOUT STATUS EPILEPTICUS Status: Acute (3) DM (diabetes mellitus) Code(s): E11.9 - TYPE 2 DIABETES MELLITUS WITHOUT COMPLICATIONS Status: Chronic Qualifiers: Diabetes mellitus type: type 2 Diabetes mellitus senior care insulin use: without senior care use Diabetes mellitus complication status: with neurologic complications Diabetes mellitus complication detail: with polyneuropathy Qualified 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 Blood cultures are negative * DM-blood glucose is a bit elevated- will continue to titrate insulin * Hypokalemia- replace * HTN- blood pressure is stable
[2019-03-09] MEDS: Insulin Glargine 12 UNITS in Pre-Filled Syringe SC SCH (21:26)
[2019-03-09] MEDS: Atorvastatin Calcium 20 MG TAB PO SCH (21:27)
[2019-03-10] MEDS: HumaLOG 300 UNITS/3 ML VIAL SC PRN ×3 (04:50→17:33)
[2019-03-10 05:11] LABS: Anion Gap 13 mmol/L (10-20); BUN (Urea Nitrogen) 21 mg/dL (8.4-25.7); Calc. Creatinine Clearance 39 mL/min (70-130); Calcium 10.3 mg/dL (7.8-10.44); Carbon Dioxide 32 mmol/L (23-31); Chloride 105 mmol/L (98-107); Estimated GFR-MDRD 50; Glucose 268 mg/dL (83-110); Potassium 3.9 mmol/L (3.5-5.1); Sodium 146 mmol/L (136-145)
[2019-03-10 05:12] LABS: Band 4 % (5-11); Eosinophils 1 % (0-10); Hemoglobin 13.9 g/dL (14.0-18.0); Lymphocytes 10 % (21-51); MDiff Complete? YES; Mean Corpuscular HGB CONC 33.7 g/dL (32.0-36.0); Mean Corpuscular Hemoglobin 32.2 pg (27.0-31.0); Mean Corpuscular Volume 95.6 fL (78.0-98.0); Mean Platelet Volume 9.5 fL (7.4-10.4); Monocytes 4 % (0-10); Neutrophil 81 % (42-75); Platelet Count 293 thou/uL (130-400); Platelet Morphology Comment Appears Adequate; RBC Distribution Width 11.5 % (11.5-14.5); Red Blood Cell (RBC) Count 4.32 mill/uL (4.70-6.10); White Blood Cell (WBC) Count 9.9 thou/uL (4.8-10.8)
[2019-03-10] MEDS: CEFAZOLIN 2 GM in Premix Bag 1 BAG IVPB SCH (06:16)
[2019-03-10] MEDS: Morphine 2 MG/ML SYRINGE SLOW IVP PRN (06:31)
--- NOTE | 2019-03-10 07:43 | PRG ---
DATE OF SERVICE: 03/10/[address] Menchaca about Mr. Godinez yesterday. There were few remaining tests on CSF to do, so we left the drain in until this morning. His vitals have been relatively stable. I do not find any change on his neurological examination since his admission. Our plan is remove the drain for Mr. Godinez. We will sign off the case as there is no neurosurgical intervention warranted. I will defer to the Medical and Neurology Teams for further workup. Hydrocephalus was not affecting his neurological condition as an open drain at 10 cm of water made no difference whatsoever. There is low pressure in the intracranial space. Job ID: [id number]
[2019-03-10] MEDS: Metoprolol Tartrate 25 MG TAB PER TUBE SCH (09:04)
[2019-03-10] MEDS: Famotidine 40 MG/5 ML Oral Suspension PER TUBE SCH (09:12)
[2019-03-10] MEDS: Insulin Glargine 12 UNITS in Pre-Filled Syringe SC SCH ×2 (09:19→22:14)
--- NOTE | 2019-03-10 09:36 | PRG ---
DATE OF SERVICE: 03/10/2019 SUBJECTIVE: This morning, a little bit more responsive. Opens his eyes. Smiling. Moves his extremities. OBJECTIVE: VITAL SIGNS: Saturations are 98% on 2 L, blood pressure 130/60, pulse rate of 18. CHEST: No wheezing or crackles. CARDIAC: Normal S1 and S2. No gallops. ABDOMEN: No masses. LABORATORY DATA: Labs unremarkable. Creatinine 1.38. IMPRESSION: 1. Encephalopathy, etiology unclear. 2. Hydrocephalus, improved. 3. Supraventricular tachycardia, better. PLAN: He has a feeding tube in place. The patient is undergoing PT, supportive care. Can be transferred out of the ICU. We will follow. Job ID: [id number]
[2019-03-10] MEDS ORDERED: Bisacodyl 10 MG SUPP PR PRN (09:44)
--- NOTE | 2019-03-10 09:46 | PDOC.HOSPP ---
- Subjective Encounter Date: 03/10/19 Encounter Time: 09:45 Subjective: Mr. Godinez was seen today in follow-up of metabolic encephalopathy. He continues to slowly improve. He is answering simple questions, and following simple commands. - Objective Vital Signs & Weight: Vital Signs (12 hours) Temp Pulse Ox 03/10/19 04:00 97.6 F 03/10/19 01:50 95 03/10/19 00:00 98.2 F Weight Admit Weight 155 lb Weight 136 lb 14.513 oz Most Recent Monitor Data Heart Rate from ECG 101 NIBP 109/62 NIBP BP-Mean 77 Respiration from ECG 21 SpO2 95 I&O: 03/09/19 03/10/19 03/11/19 06:59 06:59 06:59 Intake Total 2234 2290 Output Total 5 9 Balance 309 251 Result Diagrams: 03/10/19 04:40 03/10/19 04:40 Additional Labs: Accuchecks 03/10/19 03/09/19 03/09/19 04:42 21:43 17:38 POC Glucose 237 H 252 H 239 H 03/09/19 09:44 POC Glucose 244 H Hospitalist ROS - Medication Medications: Active Medications Generic Name Dose Route Start Last Admin Trade Name Freq PRN Reason Stop Dose Admin Acetaminophen 650 mg 02/22/19 13:46 03/01/19 00:02 Tylenol [place] 650 mg Q4H PRN Administration Headache/Fever/Mild Pain (1-3) Acetaminophen 650 mg 03/02/19 05:11 03/06/19 09:59 Tylenol PO 650 mg Q4H PRN Administration Headache/Fever or Pain Lipase/Protease/Amylase 1 cap 03/02/19 08:01 03/02/19 10:08 Jenelle Avelar [id number] FS 1 cap .PER PROTOCOL PRN Administration TUBE OCCLUSION PROTOCOL Atorvastatin Calcium 20 mg 02/27/19 21:00 03/09/19 21:27 Lipitor PO 20 mg HS CAN Administration Ciprofloxacin 1 drop 03/05/19 22:00 03/10/19 08:30 Ciprofloxacin Hcl L EYE 1 drop Q2HR CAN Administration Diphenhydramine HCl 25 mg 02/22/19 13:50 03/08/19 02:40 Benadryl PO 25 mg Q6H PRN Administration Itching & Insomnia Famotidine 20 mg 03/06/19 09:00 03/10/19 09:12 Pepcid PER TUBE 20 mg DAILY CAN Administration Diltiazem HCl 125 mg/ 125 mls @ 5 mls/hr 02/25/19 19:00 02/25/19 19:13 Miscellaneous Medication 1 IVPB 125 mls each/ Sodium Chloride INF CAN Administration Protocol Insulin Glargine 12 units/ 0.12 mls @ 0 mls/hr 03/09/19 21:00 03/09/19 21:26 Miscellaneous Medication SC 0.12 mls HS CAN Administration Insulin Glargine 12 units/ 0.12 mls @ 0 mls/hr 03/10/19 09:00 03/10/19 09:19 Miscellaneous Medication SC 0.12 mls QAM CAN Administration Insulin Human Lispro 0 units 02/22/19 14:44 03/08/19 20:50 Humalog SC 2 unit .BEDTIME SLIDING SC PRN Administration Bedtime Correctional Scale Insulin Human Lispro 0 units 03/04/19 13:41 03/10/19 04:50 Humalog SC 4 unit .MODERATE SLIDING SC PRN Administration Moderate Correctional Scale Metoprolol Tartrate 37.5 mg 03/02/19 09:00 03/10/19 09:04 Lopressor PER TUBE 37.5 mg DAILY CAN Administration Sodium Bicarbonate 650 mg 03/02/19 08:01 03/02/19 10:08 Bicarbonate, Sodium PER TUBE 650 mg .PER PROTOCOL PRN Administration ENTERAL TUBE OCCLUSION Sodium Chloride 10 ml 02/26/19 09:00 03/10/19 09:12 Flush - Normal Saline IVF 10 ml Q12HR CAN Administration - Exam Eye: PERRL, anicteric sclera Heart: RRR, no murmur, no gallops, no rubs, normal peripheral pulses Respiratory: CTAB, no wheezes, no rales, no ronchi, normal chest expansion, no tachypnea, normal percussion Gastrointestinal: soft, non-tender, non-distended, normal bowel sounds, no palpable masses, no hepatomegaly, no splenomegaly Extremities: no cyanosis, no clubbing Hosp A/P (1) Metabolic encephalopathy Code(s): G93.41 - METABOLIC ENCEPHALOPATHY Status: Acute (2) Seizure disorder Code(s): G40.909 - EPILEPSY, UNSP, NOT INTRACTABLE, WITHOUT STATUS EPILEPTICUS Status: Acute (3) DM (diabetes mellitus) Code(s): E11.9 - TYPE 2 DIABETES MELLITUS WITHOUT COMPLICATIONS Status: Chronic Qualifiers: Diabetes mellitus type: type 2 Diabetes mellitus fci insulin use: without fci use Diabetes mellitus complication status: with neurologic complications Diabetes mellitus complication detail: with polyneuropathy Qualified Code(s): E11.42 - Type 2 diabetes mellitus with diabetic polyneuropathy (4) HTN (hypertension) Code(s): I10 - ESSENTIAL (PRIMARY) HYPERTENSION Status: Chronic Qualifiers: Hypertension type: essential hypertension Qualified Code(s): I10 - Essential (primary) hypertension - Plan * Metabolic encephalopathy- resolving * CSF the Ventriculostmy drain has been removed * CSF studies have been negative to date * DM-blood glucose is a bit elevated- will see the trend today and continue to titrate * Potassium is better * HTN- blood pressure is stable
[2019-03-10] MEDS ORDERED: Polyethylene Glycol 3350 17 GM Packet PO PRN (09:49)
[2019-03-10 11:06] LABS: CSF Source CSF; Clarity Hazy (Clear)
[2019-03-10 12:18] LABS: Reference Lab Name LABCORP
[2019-03-10 12:20] LABS: Ref Lab Test Ordered 14-3-3 PROTEIN
[2019-03-10] MEDS: Atorvastatin Calcium 20 MG TAB PO SCH (22:14)
[2019-03-11] MEDS: Artificial Tears 18 DROP/0.9 ML EA EYE PRN (00:35)
[2019-03-11] MEDS: Acetaminophen 325 MG TAB PO PRN (01:35)
[2019-03-11 06:02] LABS: Anion Gap 11 mmol/L (10-20); BUN (Urea Nitrogen) 27 mg/dL (8.4-25.7); Calc. Creatinine Clearance 36 mL/min (70-130); Calcium 10.4 mg/dL (7.8-10.44); Carbon Dioxide 36 mmol/L (23-31); Chloride 103 mmol/L (98-107); Estimated GFR-MDRD 47; Glucose 297 mg/dL (83-110); Potassium 4.1 mmol/L (3.5-5.1); Sodium 146 mmol/L (136-145)
[2019-03-11] MEDS: HumaLOG 300 UNITS/3 ML VIAL SC PRN ×2 (06:37→17:42)
[2019-03-11] MEDS: Insulin Glargine 12 UNITS in Pre-Filled Syringe SC SCH (08:29)
[2019-03-11] MEDS: Famotidine 40 MG/5 ML Oral Suspension PER TUBE SCH (08:29)
[2019-03-11] MEDS: Metoprolol Tartrate 25 MG TAB PER TUBE SCH (09:28)
--- NOTE | 2019-03-11 09:47 | PRG ---
DATE OF SERVICE: 03/11/2019 SUBJECTIVE: Cristobal Godinez this morning is still lethargic, but arousable. OBJECTIVE: VITAL SIGNS: Pulse 80, respirations 20, blood pressure _130\76, saturations 93%. CHEST: No wheezing or crackles. CARDIAC: Normal S1 and S2. No gallops. ABDOMEN: No masses. ASSESSMENT: Encephalopathy, respiratory failure, dysphagia. PLAN: Continue present treatment. Can be transferred out of ICU, Continue aggressive PT and supportive care. Job ID: [id number] [facility]
--- NOTE | 2019-03-11 10:42 | PDOC.HOSPP ---
- Subjective Encounter Date: 03/11/19 Encounter Time: 10:41 Subjective: Mr. Godinez was seen today in follow-up of encephalopathy. He is a little more delayed today than yesterday. - Objective Vital Signs & Weight: Vital Signs (12 hours) Temp Pulse Ox 03/11/19 08:00 96 03/11/19 07:00 97.9 F 03/11/19 04:00 97.7 F 03/11/19 01:05 94 L 03/11/19 00:00 98.4 F Weight Admit Weight 155 lb Weight 137 lb 2.04 oz Most Recent Monitor Data Heart Rate from ECG 97 NIBP 105/68 NIBP BP-Mean 80 Respiration from ECG 17 SpO2 98 I&O: 03/10/19 03/11/19 03/12/19 06:59 06:59 06:59 Intake Total 2290 2062 60 Output Total 2039 1305 250 Balance 251 757 -190 Result Diagrams: 03/10/19 04:40 03/11/19 05:24 Additional Labs: Accuchecks 03/10/19 03/10/19 03/10/19 22:20 16:00 11:15 POC Glucose 241 H 215 H 314 H Hospitalist ROS - Medication Medications: Active Medications Generic Name Dose Route Start Last Admin Trade Name Freq PRN Reason Stop Dose Admin Acetaminophen 650 mg 02/22/19 13:46 03/01/19 00:02 Tylenol [place] 650 mg Q4H PRN Administration Headache/Fever/Mild Pain (1-3) Acetaminophen 650 mg 03/02/19 05:11 03/11/19 01:35 Tylenol PO 650 mg Q4H PRN Administration Headache/Fever or Pain Lipase/Protease/Amylase 1 cap 03/02/19 08:01 03/02/19 10:08 Jenelle Avelar [id number] FS 1 cap .PER PROTOCOL PRN Administration TUBE OCCLUSION PROTOCOL Artificial Tears 2 drop 03/04/19 13:13 03/11/19 00:35 Tears Naturale EA EYE 2 drop Q4H PRN Administration Dry Eyes Atorvastatin Calcium 20 mg 02/27/19 21:00 03/10/19 22:14 Lipitor PO 20 mg HS CAN Administration Bisacodyl 10 mg 03/10/19 09:44 03/10/19 13:36 Dulcolax [place] 10 mg Q8H PRN Administration Constipation Diphenhydramine HCl 25 mg 02/22/19 13:50 03/08/19 02:40 Benadryl PO 25 mg Q6H PRN Administration Itching & Insomnia Docusate Sodium 100 mg 02/22/19 13:50 03/10/19 22:14 Colace PO 100 mg BIDPRN PRN Administration Constipation Famotidine 20 mg 03/06/19 09:00 03/11/19 08:29 Pepcid PER TUBE 20 mg DAILY CAN Administration Diltiazem HCl 125 mg/ 125 mls @ 5 mls/hr 02/25/19 19:00 02/25/19 19:13 Miscellaneous Medication 1 IVPB 125 mls each/ Sodium Chloride INF CAN Administration Protocol Insulin Human Lispro 0 units 02/22/19 14:44 03/08/19 20:50 Humalog SC 2 unit .BEDTIME SLIDING SC PRN Administration Bedtime Correctional Scale Insulin Human Lispro 0 units 03/04/19 13:41 03/11/19 06:37 Humalog SC 6 unit .MODERATE SLIDING SC PRN Administration Moderate Correctional Scale Metoprolol Tartrate 37.5 mg 03/02/19 09:00 03/11/19 09:28 Lopressor PER TUBE Not Given DAILY CAN Sodium Bicarbonate 650 mg 03/02/19 08:01 03/02/19 10:08 Bicarbonate, Sodium PER TUBE 650 mg .PER PROTOCOL PRN Administration ENTERAL TUBE OCCLUSION Sodium Chloride 10 ml 02/26/19 09:00 03/11/19 08:31 Flush - Normal Saline IVF 10 ml Q12HR CAN Administration - Exam Eye: PERRL Heart: RRR, no murmur, no gallops, no rubs, normal peripheral pulses Respiratory: CTAB, no wheezes, no rales, no ronchi, normal chest expansion, no tachypnea, normal percussion Gastrointestinal: soft, non-tender, non-distended, normal bowel sounds, no palpable masses, no hepatomegaly Extremities: no cyanosis, no edema Psychiatric: flat affect Hosp A/P (1) Metabolic encephalopathy Code(s): G93.41 - METABOLIC ENCEPHALOPATHY Status: Acute (2) Seizure disorder Code(s): G40.909 - EPILEPSY, UNSP, NOT INTRACTABLE, WITHOUT STATUS EPILEPTICUS Status: Acute (3) DM (diabetes mellitus) Code(s): E11.9 - TYPE 2 DIABETES MELLITUS WITHOUT COMPLICATIONS Status: Chronic Qualifiers: Diabetes mellitus type: type 2 Diabetes mellitus nursing home insulin use: without nursing home use Diabetes mellitus complication status: with neurologic complications Diabetes mellitus complication detail: with polyneuropathy Qualified Code(s): E11.42 - Type 2 diabetes mellitus with diabetic polyneuropathy (4) HTN (hypertension) Code(s): I10 - ESSENTIAL (PRIMARY) HYPERTENSION Status: Chronic Qualifiers: Hypertension type: essential hypertension Qualified Code(s): I10 - Essential (primary) hypertension - Plan * Metabolic encephalopathy- waxing and wanning again- continue to avoid sedating medications. He was given Morphine the night before last * CSF the Ventriculostmy drain has been removed * CSF studies have been negative to date * DM-blood glucose is a bit elevated- continue to titrate insulin * HTN- blood pressure is stable * Move out of the ICU
[2019-03-11 13:11] LABS: West Nile Virus IgG Ab - CSF Equivocal (Negative); West Nile Virus IgM Ab - CSF Negative (Negative)
[2019-03-11] MEDS ORDERED: cloNIDine 0.2 MG TAB PO SCH (21:00)
[2019-03-11] MEDS: Insulin Glargine 15 UNITS in Pre-Filled Syringe 1 EACH SC SCH (22:21)
[2019-03-11] MEDS: Atorvastatin Calcium 20 MG TAB PO SCH (22:22)
[2019-03-12] MEDS: HumaLOG 300 UNITS/3 ML VIAL SC PRN (06:45)
[2019-03-12 06:54] LABS: Anion Gap 13 mmol/L (10-20); BUN (Urea Nitrogen) 32 mg/dL (8.4-25.7); Calc. Creatinine Clearance 33 mL/min (70-130); Calcium 10.6 mg/dL (7.8-10.44); Carbon Dioxide 33 mmol/L (23-31); Chloride 106 mmol/L (98-107); Estimated GFR-MDRD 42; Glucose 287 mg/dL (83-110); Potassium 4.2 mmol/L (3.5-5.1); Sodium 148 mmol/L (136-145)
[2019-03-12] MEDS ORDERED: Non-Formulary Item 1 EACH (Lisinopril [Lisinopril] 20 MG) PO SCH (09:00)
[2019-03-12] MEDS: Famotidine 40 MG/5 ML Oral Suspension PER TUBE SCH (10:22)
[2019-03-12] MEDS: Metoprolol Tartrate 25 MG TAB PER TUBE SCH (10:22)
[2019-03-12] MEDS: Sodium Chloride 0.45% 1,000 ML IV SCH (10:22)
[2019-03-12] MEDS: Artificial Tears 18 DROP/0.9 ML EA EYE PRN (10:39)
--- NOTE | 2019-03-12 10:49 | PDOC.HOSPP ---
- Subjective Encounter Date: 03/12/19 Encounter Time: 10:47 Subjective: Mr. Godinez was seen today in follow-up of encephalopathy. He is a bit more awake today than yesterday. He has been answering some questions. - Objective Vital Signs & Weight: Vital Signs (12 hours) Temp Pulse Resp BP Pulse Ox 03/12/19 07:53 98.9 F 96 14 119/70 96 03/12/19 03:52 98.8 F 85 12 120/64 91 L 03/11/19 23:35 98.5 F 92 15 128/80 92 L Weight Admit Weight 155 lb Weight 135 lb 14.4 oz Most Recent Monitor Data Heart Rate from ECG 97 NIBP 105/68 NIBP BP-Mean 80 Respiration from ECG 17 SpO2 98 I&O: 03/11/19 03/12/19 03/13/19 06:59 06:59 06:59 Intake Total 2062 360 Output Total 1305 1210 Balance 757 -850 Result Diagrams: 03/10/19 04:40 03/12/19 06:12 Additional Labs: Accuchecks 03/12/19 03/11/19 03/11/19 06:06 19:57 17:12 POC Glucose 229 H 225 H 278 H Hospitalist ROS - Medication Medications: Active Medications Generic Name Dose Route Start Last Admin Trade Name Freq PRN Reason Stop Dose Admin Acetaminophen 650 mg 02/22/19 13:46 03/01/19 00:02 Tylenol [place] 650 mg Q4H PRN Administration Headache/Fever/Mild Pain (1-3) Acetaminophen 650 mg 03/02/19 05:11 03/11/19 01:35 Tylenol PO 650 mg Q4H PRN Administration Headache/Fever or Pain Lipase/Protease/Amylase 1 cap 03/02/19 08:01 03/02/19 10:08 Jenelle Avelar [id number] FS 1 cap .PER PROTOCOL PRN Administration TUBE OCCLUSION PROTOCOL Artificial Tears 2 drop 03/04/19 13:13 03/12/19 10:39 Tears Naturale EA EYE 2 drop Q4H PRN Administration Dry Eyes Atorvastatin Calcium 20 mg 02/27/19 21:00 03/11/19 22:22 Lipitor PO 20 mg HS CAN Administration Bisacodyl 10 mg 03/10/19 09:44 03/10/19 13:36 Dulcolax MD 10 mg Q8H PRN Administration Constipation Diphenhydramine HCl 25 mg 02/22/19 13:50 03/08/19 02:40 Benadryl PO 25 mg Q6H PRN Administration Itching & Insomnia Docusate Sodium 100 mg 02/22/19 13:50 03/10/19 22:14 Colace PO 100 mg BIDPRN PRN Administration Constipation Famotidine 20 mg 03/06/19 09:00 03/12/19 10:22 Pepcid PER TUBE Not Given DAILY CAN Diltiazem HCl 125 mg/ 125 mls @ 5 mls/hr 02/25/19 19:00 02/25/19 19:13 Miscellaneous Medication 1 IVPB 125 mls each/ Sodium Chloride INF CAN Administration Protocol Insulin Glargine 15 units/ 0.15 mls @ 0 mls/hr 03/11/19 21:00 03/11/19 22:21 Miscellaneous Medication SC 0.15 mls BID CAN Administration Sodium Chloride 1,000 mls @ 75 mls/hr 03/12/19 07:45 03/12/19 10:22 1/2 Normal Saline IV 1,000 mls .[id number] CAN Administration Insulin Human Lispro 0 units 02/22/19 14:44 03/08/19 20:50 Humalog SC 2 unit .BEDTIME SLIDING SC PRN Administration Bedtime Correctional Scale Insulin Human Lispro 0 units 03/04/19 13:41 03/12/19 06:45 Humalog SC 4 unit .MODERATE SLIDING SC PRN Administration Moderate Correctional Scale Metoprolol Tartrate 37.5 mg 03/02/19 09:00 03/12/19 10:22 Lopressor PER TUBE Not Given DAILY CAN Sodium Bicarbonate 650 mg 03/02/19 08:01 03/02/19 10:08 Bicarbonate, Sodium PER TUBE 650 mg .PER PROTOCOL PRN Administration ENTERAL TUBE OCCLUSION Sodium Chloride 10 ml 02/26/19 09:00 03/12/19 10:23 Flush - Normal Saline IVF 10 ml Q12HR CAN Administration - Exam Eye: PERRL, anicteric sclera Heart: RRR, no murmur, no gallops, no rubs, normal peripheral pulses Respiratory: CTAB, no wheezes, no rales, no ronchi, normal chest expansion, no tachypnea, normal percussion Gastrointestinal: soft, non-tender, non-distended, normal bowel sounds, no palpable masses, no hepatomegaly, no splenomegaly Extremities: no cyanosis, no clubbing, no edema Hosp A/P (1) Metabolic encephalopathy Code(s): G93.41 - METABOLIC ENCEPHALOPATHY Status: Acute (2) Seizure disorder Code(s): G40.909 - EPILEPSY, UNSP, NOT INTRACTABLE, WITHOUT STATUS EPILEPTICUS Status: Acute (3) DM (diabetes mellitus) Code(s): E11.9 - TYPE 2 DIABETES MELLITUS WITHOUT COMPLICATIONS Status: Chronic Qualifiers: Diabetes mellitus type: type 2 Diabetes mellitus nursing home insulin use: without nursing home use Diabetes mellitus complication status: with neurologic complications Diabetes mellitus complication detail: with polyneuropathy Qualified Code(s): E11.42 - Type 2 diabetes mellitus with diabetic polyneuropathy (4) HTN (hypertension) Code(s): I10 - ESSENTIAL (PRIMARY) HYPERTENSION Status: Chronic Qualifiers: Hypertension type: essential hypertension Qualified Code(s): I10 - Essential (primary) hypertension - Plan * Metabolic encephalopathy- waxing and wanning again- a bit better today * He has pulled his DHT out once again- plan is speech therapy evaluation today * CSF the Ventriculostmy drain has been removed * DM-blood glucose is a bit elevated- continue to titrate insulin * HTN- blood pressure is stable * Continue PT/OT
[2019-03-12] MEDS: Insulin Glargine 15 UNITS in Pre-Filled Syringe 1 EACH SC SCH ×2 (12:55→20:52)
[2019-03-12] MEDS: Atorvastatin Calcium 20 MG TAB PO SCH (20:39)
[2019-03-13] MEDS: Sodium Chloride 0.45% 1,000 ML IV SCH ×2 (02:28→18:18)
[2019-03-13 04:57] LABS: #Basophils 0.1 thou/uL (0.0-0.2); #Eosinphils 0.1 thou/uL (0.0-0.7); #Lymphocytes 1.1 thou/uL (1.20-3.40); #Monocytes 0.8 thou/uL (0.11-0.59); #Neutrophils 7.5 thou/uL (1.40-6.50); %Basophils 0.9 % (0.0-1.0); %Monocytes 7.9 % (0.0-10.0); %Neutrophils 79.1 % (42.0-75.0); Hemoglobin 14.5 g/dL (14.0-18.0); Mean Corpuscular HGB CONC 32.9 g/dL (32.0-36.0); Mean Corpuscular Hemoglobin 31.7 pg (27.0-31.0); Mean Corpuscular Volume 96.5 fL (78.0-98.0); Mean Platelet Volume 9.6 fL (7.4-10.4); Platelet Count 273 thou/uL (130-400); RBC Distribution Width 11.8 % (11.5-14.5); Red Blood Cell (RBC) Count 4.58 mill/uL (4.70-6.10); White Blood Cell (WBC) Count 9.5 thou/uL (4.8-10.8)
[2019-03-13 05:20] LABS: Anion Gap 13 mmol/L (10-20); BUN (Urea Nitrogen) 31 mg/dL (8.4-25.7); Calc. Creatinine Clearance 36 mL/min (70-130); Calcium 10.3 mg/dL (7.8-10.44); Carbon Dioxide 31 mmol/L (23-31); Chloride 110 mmol/L (98-107); Estimated GFR-MDRD 47; Glucose 135 mg/dL (83-110); Potassium 3.9 mmol/L (3.5-5.1); Sodium 150 mmol/L (136-145)
[2019-03-13] MEDS ORDERED: Dextrose 5% in Water 1,000 ML IV SCH (08:45)
[2019-03-13] MEDS: Artificial Tears 18 DROP/0.9 ML EA EYE PRN (10:02)
[2019-03-13] MEDS: Famotidine 40 MG/5 ML Oral Suspension PER TUBE SCH (10:12)
[2019-03-13] MEDS: Insulin Glargine 15 UNITS in Pre-Filled Syringe 1 EACH SC SCH ×2 (10:13→20:57)
[2019-03-13] MEDS: Metoprolol Tartrate 25 MG TAB PER TUBE SCH (10:13)
[2019-03-13] MEDS: HumaLOG 300 UNITS/3 ML VIAL SC PRN ×2 (11:59→18:17)
[2019-03-13 14:57] LABS: Anion Gap 12 mmol/L (10-20); BUN (Urea Nitrogen) 34 mg/dL (8.4-25.7); Calc. Creatinine Clearance 32 mL/min (70-130); Calcium 9.4 mg/dL (7.8-10.44); Carbon Dioxide 29 mmol/L (23-31); Chloride 104 mmol/L (98-107); Estimated GFR-MDRD 40; Glucose 473 mg/dL (83-110); Potassium 3.7 mmol/L (3.5-5.1); Sodium 141 mmol/L (136-145)
--- NOTE | 2019-03-13 17:51 | PDOC.HOSPP ---
- Subjective Encounter Date: 03/13/19 Encounter Time: 10:30 Subjective: Mr. Godinez was seen today in follow-up of encephalopathy. He has not had any significant improvement overnight. Infact he may be a little less responsive than yesterday. - Objective Vital Signs & Weight: Vital Signs (12 hours) Temp Pulse Resp BP Pulse Ox 03/13/19 15:36 98.4 F 88 12 148/82 H 92 L 03/13/19 12:00 97.8 F 88 16 94/56 L 95 03/13/19 08:00 93 L 03/13/19 07:58 97.9 F 68 16 121/83 93 L Weight Admit Weight 155 lb Weight 134 lb 3.2 oz Most Recent Monitor Data Heart Rate from ECG 97 NIBP 105/68 NIBP BP-Mean 80 Respiration from ECG 17 SpO2 98 I&O: 03/12/19 03/13/19 03/14/19 06:59 06:59 06:59 Intake Total 360 200 Output Total 1210 Balance -850 200 Result Diagrams: 03/13/19 04:45 03/13/19 14:18 Additional Labs: Accuchecks 03/13/19 03/13/19 03/13/19 16:59 10:52 06:01 POC Glucose 310 H 390 H 108 03/12/19 03/12/19 20:04 18:44 POC Glucose 228 H 255 H Hospitalist ROS - Medication Medications: Active Medications Generic Name Dose Route Start Last Admin Trade Name Freq PRN Reason Stop Dose Admin Acetaminophen 650 mg 02/22/19 13:46 03/01/19 00:02 Tylenol NM 650 mg Q4H PRN Administration Headache/Fever/Mild Pain (1-3) Acetaminophen 650 mg 03/02/19 05:11 03/11/19 01:35 Tylenol PO 650 mg Q4H PRN Administration Headache/Fever or Pain Lipase/Protease/Amylase 1 cap 03/02/19 08:01 03/02/19 10:08 Jenelle Avlear [id number] FS 1 cap .PER PROTOCOL PRN Administration TUBE OCCLUSION PROTOCOL Artificial Tears 2 drop 03/04/19 13:13 03/13/19 10:02 Tears Naturale EA EYE 2 drop Q4H PRN Administration Dry Eyes Atorvastatin Calcium 20 mg 02/27/19 21:00 03/12/19 20:39 Lipitor PO 20 mg HS CAN Administration Bisacodyl 10 mg 03/10/19 09:44 03/10/19 13:36 Dulcolax NM 10 mg Q8H PRN Administration Constipation Diphenhydramine HCl 25 mg 02/22/19 13:50 03/08/19 02:40 Benadryl PO 25 mg Q6H PRN Administration Itching & Insomnia Docusate Sodium 100 mg 02/22/19 13:50 03/10/19 22:14 Colace PO 100 mg BIDPRN PRN Administration Constipation Famotidine 20 mg 03/06/19 09:00 03/13/19 10:12 Pepcid PER TUBE Not Given DAILY CAN Diltiazem HCl 125 mg/ 125 mls @ 5 mls/hr 02/25/19 19:00 02/25/19 19:13 Miscellaneous Medication 1 IVPB 125 mls each/ Sodium Chloride INF CAN Administration Protocol Insulin Glargine 15 units/ 0.15 mls @ 0 mls/hr 03/11/19 21:00 03/13/19 10:13 Miscellaneous Medication SC Not Given BID CNA Dextrose/Water 1,000 mls @ 100 mls/hr 03/13/19 08:45 03/13/19 08:56 D5w IV 1,000 mls .Q10H CAN Administration Insulin Human Lispro 0 units 02/22/19 14:44 03/08/19 20:50 Humalog SC 2 unit .BEDTIME SLIDING SC PRN Administration Bedtime Correctional Scale Insulin Human Lispro 0 units 03/04/19 13:41 03/13/19 11:59 Humalog SC 10 unit .MODERATE SLIDING SC PRN Administration Moderate Correctional Scale Metoprolol Tartrate 37.5 mg 03/02/19 09:00 03/13/19 10:13 Lopressor PER TUBE Not Given DAILY CAN Sodium Bicarbonate 650 mg 03/02/19 08:01 03/02/19 10:08 Bicarbonate, Sodium PER TUBE 650 mg .PER PROTOCOL PRN Administration ENTERAL TUBE OCCLUSION Sodium Chloride 10 ml 02/26/19 09:00 03/13/19 10:13 Flush - Normal Saline IVF Not Given Q12HR CAN - Exam Eye: PERRL Heart: RRR, no murmur, no gallops, no rubs, normal peripheral pulses Respiratory: CTAB, no wheezes, no rales, no ronchi, normal chest expansion, no tachypnea Gastrointestinal: soft, non-tender, non-distended, normal bowel sounds, no palpable masses, no hepatomegaly Extremities: no cyanosis, no clubbing, no edema Musculoskeletal: normal strength, no muscle wasting Psychiatric: flat affect Hosp A/P (1) Metabolic encephalopathy Code(s): G93.41 - METABOLIC ENCEPHALOPATHY Status: Acute (2) Seizure disorder Code(s): G40.909 - EPILEPSY, UNSP, NOT INTRACTABLE, WITHOUT STATUS EPILEPTICUS Status: Acute (3) DM (diabetes mellitus) Code(s): E11.9 - TYPE 2 DIABETES MELLITUS WITHOUT COMPLICATIONS Status: Chronic Qualifiers: Diabetes mellitus type: type 2 Diabetes mellitus intermediate insulin use: without senior assistant manager use Diabetes mellitus complication status: with neurologic complications Diabetes mellitus complication detail: with polyneuropathy Qualified Code(s): E11.42 - Type 2 diabetes mellitus with diabetic polyneuropathy (4) HTN (hypertension) Code(s): I10 - ESSENTIAL (PRIMARY) HYPERTENSION Status: Chronic Qualifiers: Hypertension type: essential hypertension Qualified Code(s): I10 - Essential (primary) hypertension - Plan * Metabolic encephalopathy- ? etiology- will re-consult Neurology * Advance oral diet as tolerated * CSF the Ventriculostmy drain has been removed * Hypernatremia- He was given D5W , sodium is now improved- will change his fluids back to 1/2 NS * DM-blood glucose is a bit elevated- due to D5W- will discontinue these fluids as above, and continue the same insulin dose * HTN- blood pressure is stable * Continue PT/OT
[2019-03-13] MEDS: Atorvastatin Calcium 20 MG TAB PO SCH (20:56)
[2019-03-14 04:21] LABS: Anion Gap 14 mmol/L (10-20); BUN (Urea Nitrogen) 31 mg/dL (8.4-25.7); Calc. Creatinine Clearance 37 mL/min (70-130); Calcium 9.2 mg/dL (7.8-10.44); Carbon Dioxide 24 mmol/L (23-31); Chloride 107 mmol/L (98-107); Estimated GFR-MDRD 48; Glucose 360 mg/dL (83-110); Potassium 3.4 mmol/L (3.5-5.1); Sodium 142 mmol/L (136-145)
[2019-03-14] MEDS: HumaLOG 300 UNITS/3 ML VIAL SC PRN ×2 (06:42→12:18)
[2019-03-14] MEDS: Insulin Glargine 15 UNITS in Pre-Filled Syringe 1 EACH SC SCH ×2 (09:55→22:15)
[2019-03-14] MEDS: Famotidine 40 MG/5 ML Oral Suspension PER TUBE SCH (09:57)
--- NOTE | 2019-03-14 09:57 | RAD ---
MODIFIED BARIUM SWALLOW IN THE PRESENCE OF A SPEECH THERAPIST: Date: 03/14/19 HISTORY: Dysphagia, oropharyngeal phase. Feeding difficulties. FINDINGS/IMPRESSION: There is laryngeal penetration and cuco aspiration with thin liquids. Residua in the piriform sinuse s and vallecula decreases with subsequent swallows. Please see recommendations of the speech therapist for further management. POS: JAMES
[2019-03-14] MEDS: Metoprolol Tartrate 25 MG TAB PER TUBE SCH (09:58)
--- NOTE | 2019-03-14 13:11 | MRI ---
Brain MRI without contrast: 03/14/2019 COMPARISON: None HISTORY: Recent brain surgery, ventriculostomy tube in place. Evaluate for possible infarction TECHNIQUE: Multiplanar multisequence MR imaging of the brain is obtained without contrast FINDINGS: Detailed assessment is limited secondary to significant patient head motion artifact. The d iffusion weighted imaging demonstrates a tiny focus of increased signal intensity within the posterior/medial left parieto-occipital region on image 46 measuring approximately 4 mm. This may rep resent a tiny area of acute infarction. The axial FLAIR imaging demonstrates no significant paranasal sinus or mastoid air cell opacification . Arterial flow voids at the axial level of the skull base appear grossly unremarkable on the T2-weighted imaging. There is decreased T2 signal intensity with blooming artifact within the frontal horn of bilateral la teral ventricles, right greater than left, suggesting ventricular gas on the basis of prior surgery and/or presence of ventriculostomy tube. In addition, there are punctate areas of blooming artifact l ayering posteriorly within the posterior horns of bilateral lateral ventricles. This is favored to represent small volume hemorrhage within the posterior horns of the lateral ventricles. Infected flui d is a much less likely possibility given the lack of restricted diffusion in this region. No significant midline shift or mass effect. Regional bone marrow signal intensity is within normal l imits. There is periventricular and deep white matter T2 and FLAIR hyperintensity suggesting small vessel di sease and/or transependymal flow of CSF. The lateral ventricles are prominent, similar when compared to the 03/06/2019 examination. IMPRESSION: Findings suggesting intraventricular gas anteriorly and intraventricular blood posteriorl y as detailed above. There is a questionable tiny focus of acute infarction measuring in the 4-5 mm range within the medial aspect of the left parieto-occipital lobe.
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
[2019-03-14] MEDS: Sodium Chloride 0.45% 1,000 ML IV SCH (16:01)
--- NOTE | 2019-03-14 19:43 | PDOC.HOSPP ---
- Subjective Encounter Date: 03/14/19 Encounter Time: 19:40 Subjective: f/u for AMS, encephalopathy likely multifactorial. MRI showing - Objective Vital Signs & Weight: Vital Signs (12 hours) Temp Pulse Resp BP BP Pulse Ox 03/14/19 15:35 97.7 F 75 20 101/65 93 L 03/14/19 13:47 109/70 03/14/19 11:49 98.3 F 73 16 103/67 96 03/14/19 08:00 98.3 F 86 16 119/82 93 L Weight Admit Weight 155 lb Weight 146 lb 12.8 oz Most Recent Monitor Data Heart Rate from ECG 97 NIBP 105/68 NIBP BP-Mean 80 Respiration from ECG 17 SpO2 98 I&O: 03/13/19 03/14/19 03/15/19 06:59 06:59 06:59 Intake Total 2990 671 Balance 2990 671 Result Diagrams: 03/13/19 04:45 03/14/19 03:18 Additional Labs: Accuchecks 03/14/19 03/14/19 03/14/19 16:52 11:08 06:09 POC Glucose 105 250 H 275 H 03/13/19 19:54 POC Glucose 436 H Radiology Reviewed by me: Yes (MRI brain - tiny focus of infarct in L parieto- occipital region) EKG Reviewed by me: Yes (Tele - SR) Hospitalist ROS - Medication Medications: Active Medications Generic Name Dose Route Start Last Admin Trade Name Freq PRN Reason Stop Dose Admin Acetaminophen 650 mg 02/22/19 13:46 03/01/19 00:02 Tylenol [place] 650 mg Q4H PRN Administration Headache/Fever/Mild Pain (1-3) Acetaminophen 650 mg 03/02/19 05:11 03/11/19 01:35 Tylenol PO 650 mg Q4H PRN Administration Headache/Fever or Pain Lipase/Protease/Amylase 1 cap 03/02/19 08:01 03/02/19 10:08 Jenelle Avelar [id number] FS 1 cap .PER PROTOCOL PRN Administration TUBE OCCLUSION PROTOCOL Artificial Tears 2 drop 03/04/19 13:13 03/13/19 10:02 Tears Naturale EA EYE 2 drop Q4H PRN Administration Dry Eyes Atorvastatin Calcium 20 mg 02/27/19 21:00 03/13/19 20:56 Lipitor PO 20 mg HS CAN Administration Bisacodyl 10 mg 03/10/19 09:44 03/10/19 13:36 Dulcolax NH 10 mg Q8H PRN Administration Constipation Diphenhydramine HCl 25 mg 02/22/19 13:50 03/08/19 02:40 Benadryl PO 25 mg Q6H PRN Administration Itching & Insomnia Docusate Sodium 100 mg 02/22/19 13:50 03/10/19 22:14 Colace PO 100 mg BIDPRN PRN Administration Constipation Famotidine 20 mg 03/06/19 09:00 03/14/19 09:57 Pepcid PER TUBE 20 mg DAILY CAN Administration Diltiazem HCl 125 mg/ 125 mls @ 5 mls/hr 02/25/19 19:00 02/25/19 19:13 Miscellaneous Medication 1 IVPB 125 mls each/ Sodium Chloride INF CAN Administration Protocol Insulin Glargine 15 units/ 0.15 mls @ 0 mls/hr 03/11/19 21:00 03/14/19 09:55 Miscellaneous Medication SC 0.15 mls BID CAN Administration Sodium Chloride 1,000 mls @ 60 mls/hr 03/13/19 18:00 03/14/19 16:01 1/2 Normal Saline IV 1,000 mls .[id number] CAN Administration Insulin Human Lispro 0 units 02/22/19 14:44 03/08/19 20:50 Humalog SC 2 unit .BEDTIME SLIDING SC PRN Administration Bedtime Correctional Scale Insulin Human Lispro 0 units 03/04/19 13:41 03/14/19 12:18 Humalog SC 4 unit .MODERATE SLIDING SC PRN Administration Moderate Correctional Scale Metoprolol Tartrate 37.5 mg 03/02/19 09:00 03/14/19 09:58 Lopressor PER TUBE 37.5 mg DAILY CAN Administration Sodium Bicarbonate 650 mg 03/02/19 08:01 03/02/19 10:08 Bicarbonate, Sodium PER TUBE 650 mg .PER PROTOCOL PRN Administration ENTERAL TUBE OCCLUSION Sodium Chloride 10 ml 02/26/19 09:00 03/14/19 10:01 Flush - Normal Saline IVF Not Given Q12HR CAN - Exam General Appearance: NAD, awake alert Eye: PERRL, anicteric sclera ENT: normocephalic atraumatic, no oropharyngeal lesions Neck: supple, symmetric, no JVD, no thyromegaly Heart: RRR, no murmur, no gallops, no rubs, normal peripheral pulses Respiratory: CTAB, no wheezes, no rales, no ronchi Gastrointestinal: soft, non-tender, non-distended, normal bowel sounds, no palpable masses Extremities: no cyanosis, no clubbing Skin: normal turgor, no lesions Neurological: no new deficit Musculoskeletal: normal tone, generalized weakness Psychiatric: flat affect Hosp A/P (1) Encephalopathy acute Code(s): G93.40 - ENCEPHALOPATHY, UNSPECIFIED Status: Acute Plan: Persistent and likely multifactorial/metabolic in nature, continue supportive mgmt (2) Hypokalemia Code(s): E87.6 - HYPOKALEMIA Status: Acute Plan: Mild, continue KCL supplementation, serial K+ monitoring (3) Hypophosphatemia Code(s): E83.39 - OTHER DISORDERS OF PHOSPHORUS METABOLISM Status: Acute Plan: Resolving (4) Atrial fibrillation with rapid ventricular response Code(s): I48.91 - UNSPECIFIED ATRIAL FIBRILLATION Status: Acute Plan: Resolved currently, continue rate-control strategy, hold anticoagulation due to ICH (5) Aspiration into airway Code(s): T17.908A - UNSP FB IN RESP TRACT, PART UNSP CAUSING OTH INJURY, INIT Status: Acute Plan: May need to consider TF's given aspiration risk - Plan PT/OT, health care social worker, speech therapy, respiratory therapy, DVT proph w/SCDs Stable currently continue supportive mgmt continue Lipitor continue low-volume IVF's CM for SNF/placement options AM lab: BMP
[2019-03-14] MEDS: Atorvastatin Calcium 20 MG TAB PO SCH (22:15)
[2019-03-15 06:29] LABS: Anion Gap 9 mmol/L (10-20); BUN (Urea Nitrogen) 23 mg/dL (8.4-25.7); Calc. Creatinine Clearance 52 mL/min (70-130); Calcium 9.2 mg/dL (7.8-10.44); Carbon Dioxide 31 mmol/L (23-31); Chloride 109 mmol/L (98-107); Estimated GFR-MDRD 64; Glucose 104 mg/dL (83-110); Sodium 146 mmol/L (136-145)
[2019-03-15 06:35] LABS: Potassium 2.9 mmol/L (3.5-5.1)
[2019-03-15] MEDS ORDERED: Potassium Chloride 20 MEQ TAB PO SCH (07:00)
[2019-03-15] MEDS: Insulin Glargine 15 UNITS in Pre-Filled Syringe 1 EACH SC SCH ×2 (08:23→21:44)
[2019-03-15] MEDS: Metoprolol Tartrate 25 MG TAB PER TUBE SCH (08:25)
[2019-03-15] MEDS: Famotidine 40 MG/5 ML Oral Suspension PER TUBE SCH (08:38)
[2019-03-15] MEDS: Sodium Chloride 0.45% 1,000 ML IV SCH ×2 (09:32→22:01)
--- NOTE | 2019-03-15 09:49 | EKG ---
Test Reason : Blood Pressure : / mmHG Vent. Rate : 082 BPM Atrial Rate : 082 BPM P-R Int : 152 ms QRS Dur : 144 ms QT Int : 458 ms P-R-T Axes : 032 -70 098 degrees QTc Int : 535 ms Sinus rhythm with frequent Premature ventricular complexes Possible Left atrial enlargement Left axis deviation Right bundle branch block T wave abnormality, consider lateral ischemia Abnormal ECG When compared with ECG of 25-FEB-2019 16:30, Previous ECG has undetermined rhythm, needs review Nonspecific T wave abnormality, worse in Inferior leads T wave inversion now evident in Lateral leads Confirmed by Caterina CLEVELAND ([id number]) on 03/15/2019 9:48:56 AM Referred By: Confirmed By:Caterina CLEVELAND
--- NOTE | 2019-03-15 11:01 | PRG ---
DATE OF TELEMEDICINE SERVICE: 03/15/2019 CHIEF COMPLAINT/INTERVAL HISTORY: The patient's stated that he woke up and ate all his breakfast, but by the time we went to see him today, he was sleepy an again and his MRI was as reviewed yesterday. He does have intraventricular hemorrhage and intraventricular air. PHYSICAL EXAMINATION: VITAL SIGNS: Temperature 98.6, pulse rate 81, respiratory rate 16, O2 sats 92% , and blood pressure 122/70. GENERAL: Higher intellectual functions. He is very sleepy, wakes up and does move extremities to stimuli. HEENT: Pupils are equal and reactive to light. NEUROLOGIC: He did not cooperate or wake up enough to do a neurological exam. IMPRESSION: The patient is a 78-year-old man, who is very sleepy, likely due to the presence of intraventricular hemorrhage and air. At this time, there are no new neurological issues. It is most likely going to take him a few days to recover and I will follow up as needed. Job ID: [id number] MTDD
[2019-03-15] MEDS: Acetaminophen 325 MG TAB PO PRN ×2 (12:53→21:44)
[2019-03-15] MEDS: HumaLOG 300 UNITS/3 ML VIAL SC PRN (14:54)
--- NOTE | 2019-03-15 15:35 | PDOC.HOSPP ---
- Subjective Encounter Date: 03/15/19 Encounter Time: 15:30 Subjective: f/u s/p intraventricular hemorrhage with EVD and encephalopathy. Tolerating pureed diet with honey-thick liquids. - Objective Vital Signs & Weight: Vital Signs (12 hours) Temp Pulse Resp BP Pulse Ox 03/15/19 12:00 98.3 F 73 16 141/87 H 93 L 03/15/19 08:25 92 L 03/15/19 08:00 98.6 F 81 16 122/70 92 L 03/15/19 03:47 98.4 F 82 18 123/70 93 L Weight Admit Weight 155 lb Weight 146 lb 9.6 oz Most Recent Monitor Data Heart Rate from ECG 97 NIBP 105/68 NIBP BP-Mean 80 Respiration from ECG 17 SpO2 98 I&O: 03/14/19 03/15/19 03/16/19 06:59 06:59 06:59 Intake Total 2990 1508 600 Balance 2990 1508 600 Result Diagrams: 03/13/19 04:45 03/15/19 05:32 Additional Labs: Accuchecks 03/15/19 03/15/19 03/14/19 11:01 06:11 19:45 POC Glucose 253 H 90 193 H 03/14/19 16:52 POC Glucose 105 EKG Reviewed by me: Yes (Tele - SR) Hospitalist ROS - Medication Medications: Active Medications Generic Name Dose Route Start Last Admin Trade Name Freq PRN Reason Stop Dose Admin Acetaminophen 650 mg 02/22/19 13:46 03/01/19 00:[address] 650 mg Q4H PRN Administration Headache/Fever/Mild Pain (1-3) Acetaminophen 650 mg 03/02/19 05:11 03/15/19 12:53 Tylenol PO 650 mg Q4H PRN Administration Headache/Fever or Pain Lipase/Protease/Amylase 1 cap 03/02/19 08:01 03/02/19 10:08 Jenelle Avelar [id number] FS 1 cap .PER PROTOCOL PRN Administration TUBE OCCLUSION PROTOCOL Artificial Tears 2 drop 03/04/19 13:13 03/13/19 10:02 Tears Naturale EA EYE 2 drop Q4H PRN Administration Dry Eyes Atorvastatin Calcium 20 mg 02/27/19 21:00 03/14/19 22:15 Lipitor PO 20 mg HS CAN Administration Bisacodyl 10 mg 03/10/19 09:44 03/10/19 13:[address] 10 mg Q8H PRN Administration Constipation Diphenhydramine HCl 25 mg 02/22/19 13:50 03/08/19 02:40 Benadryl PO 25 mg Q6H PRN Administration Itching & Insomnia Docusate Sodium 100 mg 02/22/19 13:50 03/10/19 22:14 Colace PO 100 mg BIDPRN PRN Administration Constipation Famotidine 20 mg 03/06/19 09:00 03/15/19 08:38 Pepcid PER TUBE 20 mg DAILY CAN Administration Diltiazem HCl 125 mg/ 125 mls @ 5 mls/hr 02/25/19 19:00 02/25/19 19:13 Miscellaneous Medication 1 IVPB 125 mls each/ Sodium Chloride INF CAN Administration Protocol Insulin Glargine 15 units/ 0.15 mls @ 0 mls/hr 03/11/19 21:00 03/15/19 08:23 Miscellaneous Medication SC 0.15 mls BID CAN Administration Sodium Chloride 1,000 mls @ 60 mls/hr 03/13/19 18:00 03/15/19 09:32 1/2 Normal Saline IV 1,000 mls .[id number] CAN Administration Insulin Human Lispro 0 units 02/22/19 14:44 03/08/19 20:50 Humalog SC 2 unit .BEDTIME SLIDING SC PRN Administration Bedtime Correctional Scale Insulin Human Lispro 0 units 03/04/19 13:41 03/15/19 14:54 Humalog SC 6 unit .MODERATE SLIDING SC PRN Administration Moderate Correctional Scale Metoprolol Tartrate 37.5 mg 03/02/19 09:00 03/15/19 08:25 Lopressor PER TUBE 37.5 mg DAILY CAN Administration Sodium Bicarbonate 650 mg 03/02/19 08:01 03/02/19 10:08 Bicarbonate, Sodium PER TUBE 650 mg .PER PROTOCOL PRN Administration ENTERAL TUBE OCCLUSION Sodium Chloride 10 ml 02/26/19 09:00 03/15/19 08:50 Flush - Normal Saline IVF Not Given Q12HR CAN - Exam General Appearance: NAD, awake alert Eye: PERRL, anicteric sclera ENT: normocephalic atraumatic, no oropharyngeal lesions Neck: supple, symmetric, no JVD, no thyromegaly, no lymphadenopathy Heart: RRR, no murmur, no gallops, no rubs, normal peripheral pulses Respiratory: CTAB, no wheezes, no rales, no ronchi, normal chest expansion Gastrointestinal: soft, non-tender, non-distended, normal bowel sounds Extremities: no cyanosis, no clubbing, no edema Skin: normal turgor Neurological: no new deficit Musculoskeletal: normal tone, generalized weakness Psychiatric: flat affect Hosp A/P (1) Encephalopathy acute Code(s): G93.40 - ENCEPHALOPATHY, UNSPECIFIED Status: Acute Plan: Continue supportive mgmt, likely multifactorial (2) Hypokalemia Code(s): E87.6 - HYPOKALEMIA Status: Acute Plan: Persistent, add Klor-Con 40meq BID (3) Hypophosphatemia Code(s): E83.39 - OTHER DISORDERS OF PHOSPHORUS METABOLISM Status: Acute (4) Atrial fibrillation with rapid ventricular response Code(s): I48.91 - UNSPECIFIED ATRIAL FIBRILLATION Status: Acute Plan: Current SR (5) Aspiration into airway Code(s): T17.908A - UNSP FB IN RESP TRACT, PART UNSP CAUSING OTH INJURY, INIT Status: Acute Plan: Modified diet with pureed texture and honey-thick liquids - Plan PT/OT, social media analyst, speech therapy, DVT proph w/SCDs Stable currently continue supportive mgmt continue Lipitor Increase IVF's 100ml/h Add Klor-Con 40meq BID CM for SNF/placement options AM lab: BMP
[2019-03-15] MEDS: Artificial Tears 18 DROP/0.9 ML EA EYE PRN ×2 (16:42→21:48)
[2019-03-15] MEDS: Atorvastatin Calcium 20 MG TAB PO SCH (21:44)
[2019-03-16 05:30] LABS: Anion Gap 12 mmol/L (10-20); BUN (Urea Nitrogen) 17 mg/dL (8.4-25.7); Calc. Creatinine Clearance 57 mL/min (70-130); Calcium 9.2 mg/dL (7.8-10.44); Carbon Dioxide 25 mmol/L (23-31); Chloride 109 mmol/L (98-107); Estimated GFR-MDRD 72; Sodium 143 mmol/L (136-145)
[2019-03-16 05:34] LABS: Glucose 56 mg/dL (83-110)
[2019-03-16] MEDS: Sodium Chloride 0.45% 1,000 ML IV SCH ×3 (09:02→22:01)
[2019-03-16] MEDS: Metoprolol Tartrate 25 MG TAB PER TUBE SCH (09:06)
[2019-03-16] MEDS: Famotidine 40 MG/5 ML Oral Suspension PER TUBE SCH (09:08)
[2019-03-16] MEDS: Insulin Glargine 15 UNITS in Pre-Filled Syringe 1 EACH SC SCH ×2 (09:12→22:00)
[2019-03-16] MEDS: HumaLOG 300 UNITS/3 ML VIAL SC PRN ×2 (11:38→17:34)
--- NOTE | 2019-03-16 13:51 | PDOC.HOSPP ---
- Subjective Encounter Date: 03/16/19 Encounter Time: 13:40 Subjective: f/u s/p intraventricular hemorrhage with EVD. Remains weakened sitting in bed but unable to stand independently. Tolerating pureed diet with honey-thick liquids. - Objective Vital Signs & Weight: Vital Signs (12 hours) Temp Pulse Pulse Pulse Resp BP BP 03/16/19 12:00 97.4 F L 70 24 H 03/16/19 10:05 79 75 124/68 124/70 03/16/19 08:57 03/16/19 08:18 97.5 F L 78 20 03/16/19 03:31 98 F 86 16 BP Pulse Ox 03/16/19 12:00 108/71 99 03/16/19 10:05 03/16/19 08:57 95 03/16/19 08:18 124/80 95 03/16/19 03:31 129/84 94 L Weight Admit Weight 155 lb Weight 146 lb 9.6 oz Most Recent Monitor Data Heart Rate from ECG 97 NIBP 105/68 NIBP BP-Mean 80 Respiration from ECG 17 SpO2 98 I&O: 03/15/19 03/16/19 03/17/19 06:59 06:59 06:59 Intake Total 1508 1427 Balance 1508 1427 Result Diagrams: 03/13/19 04:45 03/16/19 04:31 Additional Labs: Accuchecks 03/16/19 03/16/19 03/16/19 10:38 07:48 06:04 POC Glucose 216 H 105 305 H 03/15/19 03/15/19 19:53 16:51 POC Glucose 137 H 78 Laboratory Tests 03/14/19 03/15/19 03:18 05:32 Potassium 3.4 L 2.9 L* EKG Reviewed by me: Yes (Tele - SR) Hospitalist ROS - Medication Medications: Active Medications Generic Name Dose Route Start Last Admin Trade Name Freq PRN Reason Stop Dose Admin Acetaminophen 650 mg 02/22/19 13:46 03/01/19 00:02 Tylenol [place] 650 mg Q4H PRN Administration Headache/Fever/Mild Pain (1-3) Acetaminophen 650 mg 03/02/19 05:11 03/15/19 21:44 Tylenol PO 650 mg Q4H PRN Administration Headache/Fever or Pain Lipase/Protease/Amylase 1 cap 03/02/19 08:01 03/02/19 10:08 Jenelle Avelar [id number] FS 1 cap .PER PROTOCOL PRN Administration TUBE OCCLUSION PROTOCOL Artificial Tears 2 drop 03/04/19 13:13 03/15/19 21:48 Tears Naturale EA EYE 2 drop Q4H PRN Administration Dry Eyes Atorvastatin Calcium 20 mg 02/27/19 21:00 03/15/19 21:44 Lipitor PO 20 mg HS CAN Administration Bisacodyl 10 mg 03/10/19 09:44 03/10/19 13:36 Dulcolax [place] 10 mg Q8H PRN Administration Constipation Dextrose/Water 25 gm 02/22/19 14:44 03/16/19 05:53 Dextrose 50% SLOW IVP 25 gm PRN PRN Administration Hypoglycemia Diphenhydramine HCl 25 mg 02/22/19 13:50 03/08/19 02:40 Benadryl PO 25 mg Q6H PRN Administration Itching & Insomnia Docusate Sodium 100 mg 02/22/19 13:50 03/10/19 22:14 Colace PO 100 mg BIDPRN PRN Administration Constipation Famotidine 20 mg 03/06/19 09:00 03/16/19 09:08 Pepcid PER TUBE 20 mg DAILY CAN Administration Insulin Glargine 15 units/ 0.15 mls @ 0 mls/hr 03/11/19 21:00 03/16/19 09:12 Miscellaneous Medication SC 0.15 mls BID CAN Administration Sodium Chloride 1,000 mls @ 100 mls/hr 03/15/19 15:39 03/16/19 09:02 1/2 Normal Saline IV 1,000 mls .Q10H CAN Administration Insulin Human Lispro 0 units 02/22/19 14:44 03/08/19 20:50 Humalog SC 2 unit .BEDTIME SLIDING SC PRN Administration Bedtime Correctional Scale Insulin Human Lispro 0 units 03/04/19 13:41 03/16/19 11:38 Humalog SC 4 unit .MODERATE SLIDING SC PRN Administration Moderate Correctional Scale Metoprolol Tartrate 37.5 mg 03/02/19 09:00 03/16/19 09:06 Lopressor PER TUBE 37.5 mg DAILY CAN Administration Potassium Chloride 40 meq 03/16/19 08:00 03/16/19 09:04 Klor-Con PO 40 meq BID-WM CAN Administration Sodium Bicarbonate 650 mg 03/02/19 08:01 03/02/19 10:08 Bicarbonate, Sodium PER TUBE 650 mg .PER PROTOCOL PRN Administration ENTERAL TUBE OCCLUSION Sodium Chloride 10 ml 02/26/19 09:00 03/16/19 09:04 Flush - Normal Saline IVF Not Given Q12HR CAN - Exam General Appearance: NAD, awake alert Eye: PERRL, anicteric sclera ENT: normocephalic atraumatic, no oropharyngeal lesions Neck: supple, symmetric, no JVD, no thyromegaly, no lymphadenopathy Heart: RRR, no murmur, no gallops, no rubs, normal peripheral pulses Respiratory: CTAB, no wheezes, no rales, no ronchi Gastrointestinal: soft, non-tender, non-distended, normal bowel sounds Extremities: no cyanosis, no edema Skin: normal turgor Neurological: no new deficit Musculoskeletal: normal tone, generalized weakness Psychiatric: flat affect Hosp A/P (1) Encephalopathy acute Code(s): G93.40 - ENCEPHALOPATHY, UNSPECIFIED Status: Acute Plan: Improved, continue supportive mgmt (2) Hypokalemia Code(s): E87.6 - HYPOKALEMIA Status: Acute Plan: Persistent, continue KCL 40meq BID, serial K+ monitoring (3) Hypophosphatemia Code(s): E83.39 - OTHER DISORDERS OF PHOSPHORUS METABOLISM Status: Acute Plan: Continue current dietary intake (4) Atrial fibrillation with rapid ventricular response Code(s): I48.91 - UNSPECIFIED ATRIAL FIBRILLATION Status: Acute Plan: Current SR (5) Aspiration into airway Code(s): T17.908A - UNSP FB IN RESP TRACT, PART UNSP CAUSING OTH INJURY, INIT Status: Acute Plan: Modified dietary intake with risks, honey-thick liquids - Plan PT/OT, neonatal social worker, speech therapy, out of bed/ambulate, DVT proph w/SCDs Stable currently continue supportive mgmt continue Lipitor Increase IVF's 100ml/h continue for another 24h then d/c Add Klor-Con 40meq BID CM for SNF/placement options AM lab: BMP
[2019-03-16] MEDS: Atorvastatin Calcium 20 MG TAB PO SCH (22:00)
[2019-03-17 04:13] LABS: Anion Gap 11 mmol/L (10-20); BUN (Urea Nitrogen) 15 mg/dL (8.4-25.7); Calc. Creatinine Clearance 60 mL/min (70-130); Calcium 9.2 mg/dL (7.8-10.44); Carbon Dioxide 25 mmol/L (23-31); Chloride 108 mmol/L (98-107); Estimated GFR-MDRD 76; Potassium 3.3 mmol/L (3.5-5.1); Sodium 141 mmol/L (136-145)
[2019-03-17 04:18] LABS: Glucose 56 mg/dL (83-110)
[2019-03-17] MEDS: Sodium Chloride 0.45% 1,000 ML IV SCH ×3 (09:37→21:01)
[2019-03-17] MEDS: Metoprolol Tartrate 25 MG TAB PER TUBE SCH (09:37)
[2019-03-17] MEDS: Famotidine 40 MG/5 ML Oral Suspension PER TUBE SCH (09:37)
[2019-03-17] MEDS: Insulin Glargine 15 UNITS in Pre-Filled Syringe 1 EACH SC SCH ×2 (09:38→21:00)
[2019-03-17] MEDS: Atorvastatin Calcium 20 MG TAB PO SCH (21:00)
[2019-03-17] MEDS: Artificial Tears 18 DROP/0.9 ML EA EYE PRN (21:01)
[2019-03-18 06:14] VITALS: BMI 22.3
[2019-03-18 06:18] LABS: Anion Gap 10 mmol/L (10-20); BUN (Urea Nitrogen) 14 mg/dL (8.4-25.7); Calc. Creatinine Clearance 57 mL/min (70-130); Carbon Dioxide 25 mmol/L (23-31); Chloride 107 mmol/L (98-107); Estimated GFR-MDRD 69; Glucose 74 mg/dL (83-110); Potassium 3.6 mmol/L (3.5-5.1); Sodium 138 mmol/L (136-145)
[2019-03-18] MEDS: Famotidine 40 MG/5 ML Oral Suspension PER TUBE SCH (08:40)
[2019-03-18] MEDS: Insulin Glargine 15 UNITS in Pre-Filled Syringe 1 EACH SC SCH ×2 (08:41→21:28)
[2019-03-18] MEDS: Sodium Chloride 0.45% 1,000 ML IV SCH ×2 (08:43→19:23)
[2019-03-18] MEDS: Artificial Tears 18 DROP/0.9 ML EA EYE PRN (08:45)
[2019-03-18] MEDS: Metoprolol Tartrate 25 MG TAB PER TUBE SCH (08:52)
--- NOTE | 2019-03-18 13:41 | PDOC.HOSPP ---
- Subjective Encounter Date: 03/17/19 Subjective: Pt seen little sleepy and tired and as per nursing staff and family pt gets intermittently sleepy , pt slow to respond , Not in distress - Objective Vital Signs & Weight: Vital Signs (12 hours) Temp Pulse Resp BP Pulse Ox 03/18/19 12:00 97.7 F 74 20 109/66 93 L 03/18/19 08:40 96 03/18/19 08:00 99.1 F 75 24 H 123/76 96 03/18/19 03:41 97.7 F 83 16 115/72 90 L Weight Admit Weight 155 lb Weight 151 lb 1.6 oz Most Recent Monitor Data Heart Rate from ECG 97 NIBP 105/68 NIBP BP-Mean 80 Respiration from ECG 17 SpO2 98 I&O: 03/17/19 03/18/19 03/19/19 06:59 06:59 06:59 Intake Total 1616 1623 240 Balance 1616 1623 240 Result Diagrams: 03/13/19 04:45 03/18/19 05:07 Additional Labs: Accuchecks 03/18/19 03/18/19 03/18/19 13:16 06:39 05:57 POC Glucose 102 88 67 L 03/17/19 03/17/19 19:55 16:40 POC Glucose 183 H 183 H Hospitalist ROS - Review of Systems ROS unobtainable: due to mental status - Medication Medications: Active Medications Generic Name Dose Route Start Last Admin Trade Name Freq PRN Reason Stop Dose Admin Acetaminophen 650 mg 02/22/19 13:46 03/01/19 00:02 Tylenol [place] 650 mg Q4H PRN Administration Headache/Fever/Mild Pain (1-3) Acetaminophen 650 mg 03/02/19 05:11 03/15/19 21:44 Tylenol PO 650 mg Q4H PRN Administration Headache/Fever or Pain Lipase/Protease/Amylase 1 cap 03/02/19 08:01 03/02/19 10:08 Jenelle Avelar [id number] FS 1 cap .PER PROTOCOL PRN Administration TUBE OCCLUSION PROTOCOL Artificial Tears 2 drop 03/04/19 13:13 03/18/19 08:45 Tears Naturale EA EYE 2 drop Q4H PRN Administration Dry Eyes Atorvastatin Calcium 20 mg 02/27/19 21:00 03/17/19 21:00 Lipitor PO 20 mg HS CAN Administration Bisacodyl 10 mg 03/10/19 09:44 03/10/19 13:36 Dulcolax [place] 10 mg Q8H PRN Administration Constipation Dextrose/Water 25 gm 02/22/19 14:44 03/16/19 05:53 Dextrose 50% SLOW IVP 25 gm PRN PRN Administration Hypoglycemia Diphenhydramine HCl 25 mg 02/22/19 13:50 03/08/19 02:40 Benadryl PO 25 mg Q6H PRN Administration Itching & Insomnia Docusate Sodium 100 mg 02/22/19 13:50 03/10/19 22:14 Colace PO 100 mg BIDPRN PRN Administration Constipation Famotidine 20 mg 03/06/19 09:00 03/18/19 08:40 Pepcid PER TUBE 20 mg DAILY CAN Administration Insulin Glargine 15 units/ 0.15 mls @ 0 mls/hr 03/11/19 21:00 03/18/19 08:41 Miscellaneous Medication SC 0.15 mls BID CAN Administration Sodium Chloride 1,000 mls @ 100 mls/hr 03/15/19 15:39 03/18/19 08:43 1/2 Normal Saline IV 1,000 mls .Q10H CAN Administration Insulin Human Lispro 0 units 02/22/19 14:44 03/08/19 20:50 Humalog SC 2 unit .BEDTIME SLIDING SC PRN Administration Bedtime Correctional Scale Insulin Human Lispro 0 units 03/04/19 13:41 03/16/19 17:34 Humalog SC 4 unit .MODERATE SLIDING SC PRN Administration Moderate Correctional Scale Metoprolol Tartrate 37.5 mg 03/02/19 09:00 03/18/19 08:52 Lopressor PER TUBE 37.5 mg DAILY CAN Administration Potassium Chloride 40 meq 03/16/19 08:00 03/18/19 08:46 Klor-Con PO 40 meq BID-WM CAN Administration Sodium Bicarbonate 650 mg 03/02/19 08:01 03/02/19 10:08 Bicarbonate, Sodium PER TUBE 650 mg .PER PROTOCOL PRN Administration ENTERAL TUBE OCCLUSION Sodium Chloride 10 ml 02/26/19 09:00 03/18/19 08:43 Flush - Normal Saline IVF Not Given Q12HR CAN - Exam General - other findings: sleepy , ENT: no oropharyngeal lesions Neck: supple Heart: no murmur Respiratory: no wheezes Gastrointestinal: soft Extremities: no clubbing Neurological: cranial nerve grossly intact, no focal deficits Psychiatric: somnolent, lethargic Hosp A/P - Plan Consults: other NPH s/p karlie Hole therpay and s/p IV drain placment and removal Acute on chronic Encephalopathy possible multifactorial due to NPH /IV hemeorrhage /Dehydration Slowly improving Hypokalemia Persistent, continue KCL 40meq BID, serial K+ monitoring Atrial fibrillation with rapid ventricular response Current SR DM Hold Lantus due to low blood sugars Marked functional decline Continue PT/OT/ST evaluation Pending Placement Discussed with and nursing staff as per them pt slowly improving
--- NOTE | 2019-03-18 13:57 | PDOC.HOSPP ---
- Subjective Encounter Date: 03/18/19 Subjective: Pt seen sleepy but arousable as per was able to have breakfast and also able to sit side of bed , Not in distress - Objective Vital Signs & Weight: Vital Signs (12 hours) Temp Pulse Resp BP Pulse Ox 03/18/19 12:00 97.7 F 74 20 109/66 93 L 03/18/19 08:40 96 03/18/19 08:00 99.1 F 75 24 H 123/76 96 03/18/19 03:41 97.7 F 83 16 115/72 90 L Weight Admit Weight 155 lb Weight 151 lb 1.6 oz Most Recent Monitor Data Heart Rate from ECG 97 NIBP 105/68 NIBP BP-Mean 80 Respiration from ECG 17 SpO2 98 I&O: 03/17/19 03/18/19 03/19/19 06:59 06:59 06:59 Intake Total 1616 1623 240 Balance 1616 1623 240 Result Diagrams: 03/13/19 04:45 03/18/19 05:07 Additional Labs: Accuchecks 03/18/19 03/18/19 03/18/19 13:16 06:39 05:57 POC Glucose 102 88 67 L 03/17/19 03/17/19 19:55 16:40 POC Glucose 183 H 183 H Hospitalist ROS - Review of Systems ROS unobtainable: due to mental status - Medication Medications: Active Medications Generic Name Dose Route Start Last Admin Trade Name Freq PRN Reason Stop Dose Admin Acetaminophen 650 mg 02/22/19 13:46 03/01/19 00:02 Tylenol [place] 650 mg Q4H PRN Administration Headache/Fever/Mild Pain (1-3) Acetaminophen 650 mg 03/02/19 05:11 03/15/19 21:44 Tylenol PO 650 mg Q4H PRN Administration Headache/Fever or Pain Lipase/Protease/Amylase 1 cap 03/02/19 08:01 03/02/19 10:08 Jenelle Avelar [id number] FS 1 cap .PER PROTOCOL PRN Administration TUBE OCCLUSION PROTOCOL Artificial Tears 2 drop 03/04/19 13:13 03/18/19 08:45 Tears Naturale EA EYE 2 drop Q4H PRN Administration Dry Eyes Atorvastatin Calcium 20 mg 02/27/19 21:00 03/17/19 21:00 Lipitor PO 20 mg HS CAN Administration Bisacodyl 10 mg 10/22/19 09:44 03/10/19 13:36 Dulcolax [place] 10 mg Q8H PRN Administration Constipation Dextrose/Water 25 gm 02/22/19 14:44 03/16/19 05:53 Dextrose 50% SLOW IVP 25 gm PRN PRN Administration Hypoglycemia Diphenhydramine HCl 25 mg 02/22/19 13:50 03/08/19 02:40 Benadryl PO 25 mg Q6H PRN Administration Itching & Insomnia Docusate Sodium 100 mg 02/22/19 13:50 03/10/19 22:14 Colace PO 100 mg BIDPRN PRN Administration Constipation Famotidine 20 mg 03/06/19 09:00 03/18/19 08:40 Pepcid PER TUBE 20 mg DAILY CAN Administration Insulin Glargine 15 units/ 0.15 mls @ 0 mls/hr 03/11/19 21:00 03/18/19 08:41 Miscellaneous Medication SC 0.15 mls BID CAN Administration Sodium Chloride 1,000 mls @ 100 mls/hr 03/15/19 15:39 03/18/19 08:43 1/2 Normal Saline IV 1,000 mls .Q10H CAN Administration Insulin Human Lispro 0 units 02/22/19 14:44 03/08/19 20:50 Humalog SC 2 unit .BEDTIME SLIDING SC PRN Administration Bedtime Correctional Scale Insulin Human Lispro 0 units 03/04/19 13:41 03/16/19 17:34 Humalog SC 4 unit .MODERATE SLIDING SC PRN Administration Moderate Correctional Scale Metoprolol Tartrate 37.5 mg 03/02/19 09:00 03/18/19 08:52 Lopressor PER TUBE 37.5 mg DAILY CAN Administration Potassium Chloride 40 meq 03/16/19 08:00 03/18/19 08:46 Klor-Con PO 40 meq BID-WM CAN Administration Sodium Bicarbonate 650 mg 03/02/19 08:01 03/02/19 10:08 Bicarbonate, Sodium PER TUBE 650 mg .PER PROTOCOL PRN Administration ENTERAL TUBE OCCLUSION Sodium Chloride 10 ml 02/26/19 09:00 03/18/19 08:43 Flush - Normal Saline IVF Not Given Q12HR CAN - Exam General - other findings: sleepy but arousable , able to sit side of bed with help of PT ENT: no oropharyngeal lesions Neck: supple Heart: no murmur Respiratory: no wheezes Gastrointestinal: soft Extremities: no cyanosis Skin: no lesions Neurological: cranial nerve grossly intact Musculoskeletal: normal tone Psychiatric: somnolent, lethargic Hosp A/P - Plan NPH s/p karlie Hole therpay and s/p IV drain placement and removal , Currently no acute issues Acute on chronic Encephalopathy possible multifactorial due to NPH /IV hemorrhage /Dehydration and possible underlying cognitive impairment Slowly improving Hypokalemia Persistent improving , continue KCL 40meq BID, serial K+ monitoring Atrial fibrillation with rapid ventricular response Current SR DM Hold Lantus due to low blood sugars , encourage oral intake Marked functional decline Continue PT/OT/ST evaluation Pending Placement Discussed with who is present at bed site and nursing staff as per them pt slowly improving
[2019-03-18] MEDS: Atorvastatin Calcium 20 MG TAB PO SCH (21:33)
[2019-03-18] MEDS: Acetaminophen 325 MG TAB PO PRN (21:33)
[2019-03-18] MEDS: diphenhydrAMINE 25 MG CAP PO PRN (21:38)
[2019-03-19 04:57] LABS: Anion Gap 10 mmol/L (10-20); BUN (Urea Nitrogen) 13 mg/dL (8.4-25.7); Calc. Creatinine Clearance 58 mL/min (70-130); Calcium 9.1 mg/dL (7.8-10.44); Carbon Dioxide 26 mmol/L (23-31); Chloride 105 mmol/L (98-107); Estimated GFR-MDRD 71; Glucose 67 mg/dL (83-110); Potassium 3.5 mmol/L (3.5-5.1); Sodium 137 mmol/L (136-145)
[2019-03-19] MEDS: Metoprolol Tartrate 25 MG TAB PER TUBE SCH (08:49)
[2019-03-19] MEDS: Famotidine 40 MG/5 ML Oral Suspension PER TUBE SCH (08:51)
[2019-03-19] MEDS: Sodium Chloride 0.45% 1,000 ML IV SCH ×2 (08:52→21:12)
[2019-03-19] MEDS: Artificial Tears 18 DROP/0.9 ML EA EYE PRN (08:55)
[2019-03-19] MEDS: Insulin Glargine 15 UNITS in Pre-Filled Syringe 1 EACH SC SCH (09:35)
[2019-03-19] MEDS ORDERED: Dextrose 50% Abboject 50 ML SYRINGE SLOW IVP PRN (11:30)
[2019-03-19] MEDS ORDERED: Dextrose 5% in Water 1,000 ML IV PRN (11:30)
[2019-03-19] MEDS ORDERED: Melatonin 3 MG TAB PO PRN (11:30)
[2019-03-19] MEDS: HumaLOG 300 UNITS/3 ML VIAL SC PRN ×2 (13:19→19:56)
--- NOTE | 2019-03-19 17:00 | PDOC.HOSPP ---
- Subjective Encounter Date: 03/19/19 Subjective: Pt seen in the room , not in distress , having lunch , slowly improving as per - Objective Vital Signs & Weight: Vital Signs (12 hours) Temp Pulse Pulse Pulse Resp BP BP 03/19/19 15:42 98.2 F 79 16 03/19/19 13:15 80 75 110/61 108/61 03/19/19 11:58 97.0 F L 69 18 03/19/19 08:34 97.8 F 88 14 BP Pulse Ox 03/19/19 15:42 117/64 95 03/19/19 13:15 03/19/19 11:58 119/78 95 03/19/19 08:34 121/76 100 Weight Admit Weight 155 lb Weight 149 lb 4.8 oz Most Recent Monitor Data Heart Rate from ECG 97 NIBP 105/68 NIBP BP-Mean 80 Respiration from ECG 17 SpO2 98 I&O: 03/18/19 03/19/19 03/20/19 06:59 06:59 06:59 Intake Total 1623 3125 290 Output Total 250 Balance 1623 3125 40 Result Diagrams: 03/13/19 04:45 03/19/19 04:08 Additional Labs: Accuchecks 03/19/19 03/19/19 03/19/19 12:16 06:02 00:31 POC Glucose 175 H 69 L 112 H 03/18/19 18:11 POC Glucose 118 H Hospitalist ROS - Review of Systems ROS unobtainable: due to mental status - Medication Medications: Active Medications Generic Name Dose Route Start Last Admin Trade Name Freq PRN Reason Stop Dose Admin Acetaminophen 650 mg 02/22/19 13:46 03/01/19 00:02 Tylenol [place] 650 mg Q4H PRN Administration Headache/Fever/Mild Pain (1-3) Acetaminophen 650 mg 03/02/19 05:11 03/18/19 21:33 Tylenol PO 650 mg Q4H PRN Administration Headache/Fever or Pain Lipase/Protease/Amylase 1 cap 03/02/19 08:01 03/02/19 10:08 Jenelle Avelar [id number] FS 1 cap .PER PROTOCOL PRN Administration TUBE OCCLUSION PROTOCOL Artificial Tears 2 drop 03/04/19 13:13 03/19/19 08:55 Tears Naturale EA EYE 2 drop Q4H PRN Administration Dry Eyes Atorvastatin Calcium 20 mg 02/27/19 21:00 03/18/19 21:33 Lipitor PO 20 mg HS CAN Administration Bisacodyl 10 mg 03/10/19 09:44 03/10/19 13:36 Dulcolax [place] 10 mg Q8H PRN Administration Constipation Dextrose/Water 25 gm 02/22/19 14:44 03/16/19 05:53 Dextrose 50% SLOW IVP 25 gm PRN PRN Administration Hypoglycemia Diphenhydramine HCl 25 mg 02/22/19 13:50 03/18/19 21:38 Benadryl PO 25 mg Q6H PRN Administration Itching & Insomnia Docusate Sodium 100 mg 02/22/19 13:50 03/10/19 22:14 Colace PO 100 mg BIDPRN PRN Administration Constipation Famotidine 20 mg 03/06/19 09:00 03/19/19 08:51 Pepcid PER TUBE 20 mg DAILY CAN Administration Sodium Chloride 1,000 mls @ 100 mls/hr 03/15/19 15:39 03/19/19 08:52 1/2 Normal Saline IV 1,000 mls .Q10H CAN Administration Insulin Human Lispro 0 units 03/19/19 11:30 03/19/19 13:19 Humalog SC 2 unit .MILD SLIDING SCALE PRN Administration Mild Correctional Scale Metoprolol Tartrate 37.5 mg 03/02/19 09:00 03/19/19 08:49 Lopressor PER TUBE 37.5 mg DAILY CAN Administration Potassium Chloride 40 meq 03/16/19 08:00 03/19/19 08:48 Klor-Con PO 40 meq BID-WM CAN Administration Sodium Bicarbonate 650 mg 03/02/19 08:01 03/02/19 10:08 Bicarbonate, Sodium PER TUBE 650 mg .PER PROTOCOL PRN Administration ENTERAL TUBE OCCLUSION Sodium Chloride 10 ml 02/26/19 09:00 03/19/19 08:51 Flush - Normal Saline IVF 10 ml Q12HR CAN Administration - Exam General - other findings: awake but non much communicative , shannan right cranium area ENT: no oropharyngeal lesions Neck: symmetric Heart: no murmur Respiratory: no wheezes Gastrointestinal: soft Extremities: no cyanosis Hosp A/P - Plan NPH s/p karlie Hole therpay and s/p IV drain placement and removal , Currently no acute issues Acute on chronic Encephalopathy possible multifactorial due to NPH /IV hemorrhage /Dehydration and possible underlying cognitive impairment Slowly improving Hypokalemia Persistent improving , continue KCL 40meq BID, serial K+ monitoring Atrial fibrillation with rapid ventricular response Current SR DM Hold Lantus due to low blood sugars , encourage oral intake , sliding scale changed to low correction Marked functional decline Continue PT/OT/ST evaluation Pending Placement to facility possible in am Discussed with who is present at bed site and nursing staff as per them pt slowly improving
[2019-03-19] MEDS: Acetaminophen 325 MG TAB PO PRN (21:13)
[2019-03-19] MEDS: Atorvastatin Calcium 20 MG TAB PO SCH (21:13)
[2019-03-20 05:17] LABS: Anion Gap 11 mmol/L (10-20); BUN (Urea Nitrogen) 14 mg/dL (8.4-25.7); Calc. Creatinine Clearance 55 mL/min (70-130); Calcium 9.1 mg/dL (7.8-10.44); Carbon Dioxide 23 mmol/L (23-31); Chloride 106 mmol/L (98-107); Estimated GFR-MDRD 68; Glucose 163 mg/dL (83-110); Potassium 4.1 mmol/L (3.5-5.1); Sodium 136 mmol/L (136-145)
[2019-03-20] MEDS: HumaLOG 300 UNITS/3 ML VIAL SC PRN ×3 (06:39→17:54)
[2019-03-20] MEDS ORDERED: Famotidine 20 MG TAB PO SCH (09:00)
[2019-03-20] MEDS: Acetaminophen 325 MG TAB PO PRN (10:04)
[2019-03-20] MEDS: Artificial Tears 18 DROP/0.9 ML EA EYE PRN ×2 (10:06→15:01)
[2019-03-20] MEDS: Sodium Chloride 0.45% 1,000 ML IV SCH ×2 (10:07→18:54)
[2019-03-20] MEDS: Metoprolol Tartrate 25 MG TAB PER TUBE SCH (10:08)
[2019-03-20] MEDS: Famotidine 40 MG/5 ML Oral Suspension PER TUBE SCH (10:08)
[2019-03-20 15:57] VITALS: BP 108/65; TEMP 97.7
--- NOTE | 2019-03-21 01:19 | DIS ---
DATE OF ADMISSION: 02/22/2019 DATE OF DISCHARGE: 03/20/2019 DISCHARGE DIAGNOSES: 1. Normal-pressure hydrocephalus, status post karlie hole therapy and status post IV drain placement and removal. 2. Acute on chronic encephalopathy, most likely multifactorial due to NPH, intraventricular hemorrhage, dehydration, and possible underlying cognitive impairment. 3. Hypokalemia. 4. Atrial fibrillation. 5. Diabetes mellitus. 6. Marked functional decline. PHYSICAL EXAMINATION: VITAL SIGNS: Blood pressure 108/65, temperature 97.7, pulse 70, respirations 16, oxygen saturation 96%. GENERAL: The patient has shannan on the right parietal area being removed. Oral mucosa moist. NECK: Supple. No JVD. No lymphadenopathy. CHEST: Normal vesicular breathing. HEART: Sounds normal. ABDOMEN: Soft, benign, nontender, visceromegaly. Negative edema of feet. LABORATORY DATA: CBC on 03/13/2019, hemoglobin 14.5, white blood cells 9.5, platelets 273. BMP unremarkable on 03/20/2019. Blood glucose 180. HOSPITAL SUMMARY: The patient, Herbert Jain was admitted with altered mental status and also with the seizures and positive troponins. The patient was admitted to ICU and the patient was performed MRI, which showed normal-pressure hydrocephalus. The patient was evaluated by Neurosurgery. The patient was performed karlie hole intervention and the patient was placed on intraventricular drain and which was subsequently removed. The patient had a prolonged stay. However, the patient had encephalopathy, which has gradually improved. The patient transferred out of ICU. The patient is currently stable, working with physical therapy and taking diet orally, able to sit in chair. The patient also had a persistent hypokalemia being replaced. The patient cleared by Neurosurgery to discharge and the patient is being discharged home. Advised to follow up outpatient with PCP, Neurosurgery, and Cardiology. The patient had atrial fibrillation, not on anticoagulation due to recent brain surgery. The patient being discharged in a stable condition. Discussed with the and advised to follow up PCP, Neurosurgery and Cardiology. Job ID: [id number]
[2019-03-21] MEDS ORDERED: Metoprolol Tartrate 25 MG TAB PO SCH (09:00)
== END 2019-03-20 19:45 | DRG 25 ==
LOC: ERS 11:40 → CCU 13:19 → 2SE 02-28 16:10 → CCU 03-05 20:26 → 2SE 03-11 10:57
PROVIDERS: ADMIT Internal Medicine; ATTEND Internal Medicine
PROC: 009U3ZX Drainage of Spinal Canal, Percutaneous Approach, Diagnostic (ICD-10-PCS; principal; 2019-02-26)
PROC: B01BZZZ Fluoroscopy of Spinal Cord (ICD-10-PCS; 2019-02-26)
PROC: 009630Z Drainage of Cerebral Ventricle with Drainage Device, Percutaneous Approach (ICD-10-PCS; 2019-03-05)
DX: G91.2 (Idiopathic) normal pressure hydrocephalus (principal); G93.41 Metabolic encephalopathy; I21.A1 Myocardial infarction type 2; I61.5 Nontraumatic intracerebral hemorrhage, intraventricular; I47.1 Supraventricular tachycardia; E87.2 Acidosis; I82.611 Acute embolism and thrombosis of superficial veins of right upper extremity; N17.9 Acute kidney failure, unspecified; R65.10 Systemic inflammatory response syndrome (SIRS) of non-infectious origin without acute organ dysfunction; E87.0 Hyperosmolality and hypernatremia; E46 Unspecified protein-calorie malnutrition; Z68.22 Body mass index [BMI] 22.0-22.9, adult; E11.40 Type 2 diabetes mellitus with diabetic neuropathy, unspecified; E78.5 Hyperlipidemia, unspecified; G89.29 Other chronic pain; M19.90 Unspecified osteoarthritis, unspecified site; I10 Essential (primary) hypertension; G40.901 Epilepsy, unspecified, not intractable, with status epilepticus; I25.10 Atherosclerotic heart disease of native coronary artery without angina pectoris; E87.6 Hypokalemia; I48.91 Unspecified atrial fibrillation; R13.10 Dysphagia, unspecified; E83.39 Other disorders of phosphorus metabolism; E86.0 Dehydration; E11.65 Type 2 diabetes mellitus with hyperglycemia; Z87.891 Personal history of nicotine dependence; Z79.899 Other long term (current) drug therapy; Z79.01 Long term (current) use of anticoagulants; Z79.84 Long term (current) use of oral hypoglycemic drugs; Z90.49 Acquired absence of other specified parts of digestive tract; Z86.711 Personal history of pulmonary embolism; Z86.718 Personal history of other venous thrombosis and embolism; Z28.82 Immunization not carried out because of caregiver refusal
CPT/HCPCS: 36415; 36416; 62270; 70450; 70551; 70553; 71045; 72125; 72131; 74018; 74230; 77002; 80048; 80053; 80069; 80177; 80306; 80307; 81001; 81003; 81015; 82140; 82550; 82553; 82945; 83735; 83880; 84132; 84157; 84443; 84484; 85007; 85014; 85018; 85025; 85027; 85049; 85060; 85610; 85730; 86788; 86789; 87040; 87070; 87086; 87149; 87205; 87529; 87631; 87798; 87899; 89051; 93005; 93010; 93306; 93970; 94760; 95816; 95819; 96361; 96365; 96372; 96375; 99292; J0282; J0690; J1160; J1642; J1650; J1815; J1953; J2001; J2060; J2270; J2543; J2704; J3010; J3370; J3475; J3480; J3490; J7050; J7070; Q0163; S0028

== ENCOUNTER 2019-04-16 19:00 | Inpatient (IN) | payer OTHER ==
--- NOTE | 2019-04-16 19:33 | RAD ---
Radiograph pelvis one view: DATE: 04/16/2019 Time: 7:26 PM HISTORY: 79-year-old male with acute traumatic right hip pain from fall COMPARISON: 04/09/2019 FINDINGS: There is a new finding of right intertrochanteric fracture with mild varus angulation. Again noted is the plate and screws fixating right ischium, including posterior acetabulum. Diffuse osteopenia. Severe lumbar degenerative disc disease. Lumbar levoscoliosis. No dislocation. IMPRESSION: 1. Acute, traumatic, at least mildly displaced, intertrochanteric fracture of right proximal femur. 2. Old open reduction internal fixation of old right ischial fracture. 3. Levoscoliosis and severe lower lumbar spondylosis.
[2019-04-16 20:02] LABS: #Eosinphils 0.1 thou/uL (0.0-0.7); #Lymphocytes 0.4 thou/uL (1.20-3.40); #Monocytes 0.7 thou/uL (0.11-0.59); #Neutrophils 5.9 thou/uL (1.40-6.50); %Basophils 0.6 % (0.0-1.0); %Eosinophils 1.1 % (0.0-10.0); %Lymphocytes 6.2 % (21.0-51.0); %Monocytes 9.8 % (0.0-10.0); %Neutrophils 82.3 % (42.0-75.0); Hemoglobin 10.9 g/dL (14.0-18.0); Mean Corpuscular HGB CONC 34.1 g/dL (32.0-36.0); Mean Corpuscular Hemoglobin 32.2 pg (27.0-31.0); Mean Corpuscular Volume 94.5 fL (78.0-98.0); Mean Platelet Volume 7.8 fL (7.4-10.4); Platelet Count 185 thou/uL (130-400); RBC Distribution Width 12.8 % (11.5-14.5); Red Blood Cell (RBC) Count 3.38 mill/uL (4.70-6.10); White Blood Cell (WBC) Count 7.1 thou/uL (4.8-10.8)
[2019-04-16 20:24] LABS: ALT (SGPT) 48 U/L (8-55); AST (SGOT) 29 U/L (5-34); Albumin 3.4 g/dL (3.4-4.8); Alkaline Phosphatase 119 U/L (40-110); Anion Gap 13 mmol/L (10-20); BUN (Urea Nitrogen) 32 mg/dL (8.4-25.7); Bilirubin, Total 0.3 mg/dL (0.2-1.2); Calc. Creatinine Clearance 0 mL/min (70-130); Calcium 9.2 mg/dL (7.8-10.44); Carbon Dioxide 23 mmol/L (23-31); Chloride 103 mmol/L (98-107); Estimated GFR-MDRD 48; Glucose 324 mg/dL (83-110); Potassium 4.6 mmol/L (3.5-5.1); Protein, Total 6.4 g/dL (5.8-8.1); Sodium 134 mmol/L (136-145)
[2019-04-16 21:02] LABS: Bacteria/HPF 4+ HPF (None Seen); Bilirubin Negative (Negative); Blood, Urine Negative (Negative); Clarity Turbid (Clear); Glucose, Urine (Dipstick) Normal (Negative); Leukocyte 250 Leu/uL (Negative); Nitrite Negative (Negative); Protein, Urine (Dipstick) 20 mg/dL (Neg-Trace); RBC/HPF 0-3 HPF (0-3); Squamous Epithelial None Seen HPF (0-3); Urobilinogen Normal mg/dL (Less than 2); WBC/HPF 21-50 HPF (0-3)
--- NOTE | 2019-04-16 21:15 | CT ---
CT BRAIN NONCONTRAST: DATE: 04/16/2019 HISTORY: 79-year-old male status post acute head trauma from fall. COMPARISON: 03/26/2019 FINDINGS: Lateral, third, and fourth ventricles are all dilated to moderate degree. This is questionably minima lly worse than on prior study. There is no evidence of acute intra-axial or extra-axial hemorrhage. There is no midline shift or any other mass effect. There is no extra-axial fluid collection. Calvari um is intact. There is diffuse brain parenchymal volume loss. There are low attenuation areas in the white matter. These are nonspecific, but in a patient of this age, they are probably chronic isch emic white matter changes due to microvascular atherosclerosis. However, there is also a possibility that some of this could represent transependymal migration of CSF. Again noted is the bur r hole at the right coronal suture. There is currently no ventriculostomy catheter. IMPRESSION: 1) No acute intracranial findings. 2) involutional changes and chronic ischemic white matter changes. 3) ventriculomegaly. 4) right-sided karlie hole. 5) no definite interval change since 03/26/2019.
--- NOTE | 2019-04-16 21:23 | RAD ---
RADIOGRAPH RIGHT KNEE 4VIEWS: DATE: 04/16/2019 HISTORY: 79-year-old male with acute traumatic right knee pain from fall. FINDINGS: There is no dislocation. No fracture is identified. Prepatellar anterior superficial soft tissue swel ling. IMPRESSION: No fracture.
[2019-04-16] MEDS ORDERED: Morphine 4 MG/ML VIAL ONE ×2 (21:25→23:08)
--- NOTE | 2019-04-16 22:26 | RAD ---
Radiograph right hip 2 views: DATE: 04/16/2019 Time: 10:03 PM HISTORY: 79-year-old male with traumatic right hip pain due to fall. FINDINGS: Only one view pelvis radiograph, it appeared that there was an intertrochanteric fracture. However, t sravan dedicated 2 view images of the hip demonstrate that this is a basicervical fracture. No displacement of greater or lesser trochanter identified. ORIF hardware of right ischium, including po sterior acetabulum and inferior ramus. No dislocation. IMPRESSION: 1. Acute, traumatic, displaced basicervical fracture of the right proximal femur. 2. Old open reduction internal fixation hardware of right ischium.
[2019-04-16] MEDS ORDERED: cefTRIAXone\\ROCEPHIN 1 GM VIAL ONE (22:51)
[2019-04-17] MEDS ORDERED: Ondansetron PF 4 MG/2 ML Vial IVP PRN
[2019-04-17] MEDS ORDERED: traMADol HCl 50 MG TAB PO PRN ×2
[2019-04-17] MEDS ORDERED: Ondansetron ODT 4 MG TAB PO PRN
[2019-04-17] MEDS ORDERED: Dextrose 5% in Water 1,000 ML IV PRN
[2019-04-17] MEDS ORDERED: Dextrose 50% Abboject 50 ML SYRINGE SLOW IVP PRN
[2019-04-17] MEDS: Cyclobenzaprine 10 MG TAB PO PRN ×3 (00:26→23:16)
[2019-04-17] MEDS: Acetaminophen 500 MG TAB PO SCH ×5 (00:28→23:15)
[2019-04-17] MEDS: Sodium Chloride 0.9% 1,000 ML IV SCH ×2 (00:31→14:11)
[2019-04-17 00:40] VITALS: BMI 23.3
--- NOTE | 2019-04-17 01:12 | HP ---
REQUESTING PHYSICIAN: Dr. Joseph. ATTENDING SURGEON: Dr. Green. CONSULTATIONS: Orthopedics, Dr. Terrell. HISTORY OF PRESENT ILLNESS: The patient is a 79-year-old man, who was brought to the emergency department tonight after transferring from his chair to his walker. The patient uses a four-wheel walker that moved and he subsequently fell hitting his right hip on the floor and he believes striking his head on the floor also. The patient takes Xarelto. Fortunately, his head CT was unremarkable. The patient was noted to have a right hip fracture at which time we were asked to evaluate the patient for admission and obtain orthopedic consultation. Family denies any loss of consciousness and states the patient is at his baseline. ALLERGIES: NONE. CURRENT MEDICATIONS: 1. Benadryl. 2. Docusate. 3. Gabapentin. 4. Glipizide. 5. Lisinopril. 6. Multivitamin. 7. Omeprazole. 8. MiraLAX. 9. Xarelto. 10. Simvastatin. 11. Tramadol. PAST MEDICAL HISTORY: Seizure disorder, type 2 diabetes, normal-pressure hydrocephalus, atrial fibrillation. PAST SURGICAL HISTORY: Open reduction and internal fixation of right pelvis fracture, partial colectomy, karlie hole therapy. SOCIAL HISTORY: The patient lives at home with family. He is a former tobacco user, greater than 20 years ago. Denies drug or alcohol use. The patient had a recent inpatient rehab stay after his seizures related to his normal-pressure hydrocephalus, and is still recovering from deconditioning. REVIEW OF SYSTEMS: A 10-point review of systems is otherwise negative. PHYSICAL EXAMINATION: VITAL SIGNS: Blood pressure 108/66, heart rate 83, respirations 16, oxygen saturation is 92% on room air, and temperature is 98.7. GENERAL: The patient is resting comfortably in bed. He is awake, alert, conversant, Katharina Coma Scale is 15. HEENT: Head, the patient has a small abrasion to his right side of his scalp. Remainder is atraumatic. Eyes, extraocular motion intact. PERRLA bilaterally. Ears are atraumatic without discharge. Nose is atraumatic without discharge. Oropharynx is clear. NECK: Nontender. Trachea is midline. No JVD. CHEST: Clear to auscultation with good inspiratory and expiratory efforts. HEART: Regular rate and rhythm. ABDOMEN: Soft, flat, nontender with active bowel sounds. PELVIS: Stable with tenderness to palpation of the right hip. EXTREMITIES: Neurovascularly intact x4. The patient has a small abrasion and contusion in his anterior right knee. BACK: By report is atraumatic and nontender. LABORATORY FINDINGS: White blood cell count 7.1, hemoglobin 10.9, hematocrit 31.9, platelets 185. Sodium 134, potassium 4.6, chloride 103, CO2 of 23, BUN 32, creatinine 1.42, glucose 324. LFTs are unremarkable. Urinalysis positive for leukocyte esterase, 21-50 wbc's and 4+ bacteria. RADIOGRAPHIC FINDINGS: CT of the brain without contrast shows no acute findings. AP pelvis shows an acute mildly displaced right intertrochanteric hip fracture. Views of the right hip showed again right intertrochanteric hip fracture. Views of the right knee show no acute findings. ASSESSMENT: 1. Status post ground level fall. 2. Right intertrochanteric hip fracture. 3. Urinary tract infection. 4. Acute pain secondary to trauma. 5. History of normal-pressure hydrocephalus, seizure disorder. 6. Hyperglycemia secondary to type 2 diabetes. 7. History of Xarelto use. PLAN: Plan will be to admit the patient to the surgical floor. His Xarelto will be held and the patient will likely be able to undergo surgery on Saturday. The patient will have Rocephin for his urinary tract infection. We will do pain control, pulmonary toilet, gastritis, mechanical VTE prophylaxis. The patient was evaluated by Dr. Terrell in the emergency department. This evaluation, examination, laboratory and radiographic findings were discussed with Dr. Green prior to this dictation. Job ID: [id number]
[2019-04-17 05:20] LABS: #Lymphocytes 0.7 thou/uL (1.20-3.40); #Monocytes 0.7 thou/uL (0.11-0.59); #Neutrophils 5.3 thou/uL (1.40-6.50); %Basophils 0.5 % (0.0-1.0); %Eosinophils 0.7 % (0.0-10.0); %Lymphocytes 9.8 % (21.0-51.0); %Monocytes 10.3 % (0.0-10.0); %Neutrophils 78.7 % (42.0-75.0); Hemoglobin 9.5 g/dL (14.0-18.0); Mean Corpuscular HGB CONC 33.4 g/dL (32.0-36.0); Mean Corpuscular Hemoglobin 31.4 pg (27.0-31.0); Mean Platelet Volume 8.3 fL (7.4-10.4); Platelet Count 172 thou/uL (130-400); RBC Distribution Width 12.9 % (11.5-14.5); Red Blood Cell (RBC) Count 3.03 mill/uL (4.70-6.10); White Blood Cell (WBC) Count 6.7 thou/uL (4.8-10.8)
[2019-04-17 05:22] LABS: INR-International Normal Ratio 1.1; Prothrombin Time 14.3 SEC (12.0-14.7)
[2019-04-17 05:23] LABS: PTT 36.1 SEC (22.9-36.1)
[2019-04-17 05:41] LABS: Anion Gap 7 mmol/L (10-20); BUN (Urea Nitrogen) 24 mg/dL (8.4-25.7); Calc. Creatinine Clearance 53 mL/min (70-130); Calcium 8.8 mg/dL (7.8-10.44); Carbon Dioxide 26 mmol/L (23-31); Chloride 107 mmol/L (98-107); Estimated GFR-MDRD 65; Glucose 158 mg/dL (83-110); Potassium 4.1 mmol/L (3.5-5.1); Sodium 136 mmol/L (136-145)
[2019-04-17] MEDS ORDERED: CEFAZOLIN 2 GM in Premix Bag 1 BAG IVPB SCH (08:30)
[2019-04-17] MEDS: Famotidine 20 MG TAB PO SCH ×2 (08:46→20:22)
[2019-04-17] MEDS ORDERED: Prevnar 13-Val Conj/PF 0.5 ML SYRINGE IM ONE (09:00)
[2019-04-17] MEDS ORDERED: FLU VACC TS2019-20(65YR UP)/PF 180 MCG/0.5 ML SYRINGE IM ONE (09:00)
--- NOTE | 2019-04-17 09:05 | CON ---
DATE OF CONSULTATION: 04/16/2019 BRIEF HISTORY OF PRESENT ILLNESS: The patient is a 79-year-old man, who was examined in the emergency room with at bedside. She reports that earlier on the evening of April 16, 2019, he was transferring from his chair getting up to use his walker, when he sustained a ground level fall. He reports immediate right hip pain and believes he may have struck his head, although there was no loss of consciousness. The patient was brought to the emergency room, and a CT scan of his head was obtained secondary to the fact that the patient did have this blunt trauma and is on Xarelto. The patient also found to have a right hip fracture with hip x-rays and an AP pelvis x-ray. Given this fracture, orthopedic consultation was requested. The patient is being admitted to the trauma service. PAST MEDICAL HISTORY: Remarkable for seizure disorder, type 2 diabetes, atrial fibrillation, history of deep venous thrombosis approximately 1 year ago. PAST SURGICAL HISTORY: Open reduction and internal fixation of right acetabulum, partial colectomy, as well as bur hole therapy for normal-pressure hydrocephalus. SOCIAL HISTORY: Lives at home with . He has a distant past history of cigarette smoking, but quit over 20 years ago. He denies drug or alcohol use. FAMILY HISTORY: Noncontributory. REVIEW OF SYSTEMS: Denies recent fevers, chills, or sweats. Denies current chest pain or shortness of breath. Denies numbness or tingling in the lower extremity. PHYSICAL EXAMINATION: VITAL SIGNS: Temperature 98.7, heart rate of 99, respiratory rate of 15, and blood pressure 105/69. HEENT: Atraumatic and normocephalic. HEART: Regular rate and rhythm without murmur. LUNGS: Clear to auscultation bilaterally with good breath sounds. Chest wall nontender. ABDOMEN: Soft and flat with normal bowel sounds. PELVIS: Stable to compression. EXTREMITIES: Remarkable for bilateral upper extremities are atraumatic. Left lower extremity also is atraumatic. The right lower extremity is held in slight external rotation at the hip. The knee, ankle, and foot are atraumatic. He is wiggling his toes normally. He has pain in the groin with any type of log-rolling of this right thigh. LABORATORY DATA: White count 7, hematocrit 31.9, and 185,000 platelets. He does have a urinalysis that is positive for infection. IMAGING DATA: Two-view x-ray of the right hip as well as AP pelvis remarkable for a mildly displaced right intertrochanteric fracture, which is right at the base of the neck. ASSESSMENT: This is a 79-year-old gentleman, status post ground level fall, sustaining right intertrochanteric hip fracture with comorbidities including atrial fibrillation, history of deep venous thrombosis approximately 1 year ago for which he is currently on Xarelto, as well as current urinary tract infection. PLAN: At this time, the patient will be admitted to the trauma service. Given that he did take his Xarelto earlier this morning, we will hold off on surgery until Saturday to allow his coagulopathy to resolve. This evening, I briefly discussed with the patient risks and benefits of surgery. Risks include, but are not limited to bleeding, infection, nerve injury, DVT, PE, malunion, nonunion, hip pain, loss of limb or life. They appear to understand and do wish to proceed. Consent will be obtained prior to surgery. Job ID: [id number]
[2019-04-17] MEDS: Insulin Regular 300 UNITS/3 ML VIAL SC PRN ×2 (12:14→16:57)
--- NOTE | 2019-04-17 14:04 | PRG ---
DATE OF SERVICE: 04/17/2019 This is Jesus Gillespie PA-C dictating a report for Segun Green DO. SUBJECTIVE: Mr. Godinez is a 79-year-old male, status post ground level fall. He sustained right hip fracture. He also has a history of atrial fibrillation, DVT in which he has been using Xarelto for one year. He also developed UTI on admission. Dr. Terrell was seen the patient. Due to the patient taking Xarelto, his surgery will be postponed until tomorrow. Currently, the patient has conservative treatment with pain control, nonpharmacological DVT prophylaxis, supportive care. The patient reports pain is well controlled. He has tolerated with regular diet. His vital signs have been stable. OBJECTIVE: GENERAL: The patient is lying down in bed, comfortable with no acute respiratory distress. VITAL SIGNS: This morning, temperature 99, heart rate 85, respiratory rate 16, O2 saturation 95% on room air, and blood pressure 105/57. LUNGS: Clear bilaterally. HEART: Regular rate and rhythm. ABDOMEN: Soft, nondistended. EXTREMITIES: Neurovascularly intact x4. Right hip limited range of motion due to pain. NEUROLOGIC: No focal neurological deficits. ASSESSMENT: 1. Status post ground level fall. 2. Right hip fracture. 3. History of atrial fibrillation, deep venous thrombosis. The patient used Xarelto. 4. New onset uncomplicated urinary tract infection. PLAN: Will be supportive care. Continue pain control. Continue antibiotics for UTI. Hold Xarelto for now. N.p.o. at midnight for go to the surgery tomorrow with Orthopedics. Continue DVT prophylaxis and gastritis prophylaxis. The patient was seen and evaluated with Dr. Green on round this morning. Job ID: [id number]
[2019-04-17] MEDS: Morphine 2 MG/ML SYRINGE SLOW IVP PRN (15:31)
[2019-04-17] MEDS: Gabapentin 100 MG CAP PO SCH (20:22)
[2019-04-17] MEDS: Senokot S 8.6-50 MG TAB PO SCH (20:22)
[2019-04-17] MEDS: cefTRIAXone\\ROCEPHIN 1 GM in Sodium Chloride 0.9% 100 ML IVPB SCH (23:15)
[2019-04-18] MEDS: Acetaminophen 500 MG TAB PO SCH ×4 (05:50→23:41)
[2019-04-18] MEDS: Morphine 2 MG/ML SYRINGE SLOW IVP PRN ×2 (05:50→07:50)
[2019-04-18] MEDS: Sodium Chloride 0.9% 1,000 ML IV SCH ×2 (05:51→22:23)
[2019-04-18] MEDS: Polyethylene Glycol 3350 17 GM Packet PO SCH (07:56)
[2019-04-18] MEDS: Senokot S 8.6-50 MG TAB PO SCH ×2 (07:56→20:50)
[2019-04-18] MEDS: Gabapentin 100 MG CAP PO SCH ×2 (08:32→20:49)
[2019-04-18] MEDS: Famotidine 20 MG TAB PO SCH ×2 (08:32→20:49)
[2019-04-18] MEDS ORDERED: Fentanyl 100 MCG/2 ML VIAL ONE ×3 (08:57→10:52)
[2019-04-18] MEDS ORDERED: Lidocaine 2% Jelly 5 ML TUBE ONE (08:57)
[2019-04-18] MEDS ORDERED: Ondansetron HCl/PF 4 MG/2 ML Vial IVP PRN (10:31)
[2019-04-18] MEDS ORDERED: Promethazine HCl 25 MG/ML VIAL SLOW IVP PRN (10:31)
[2019-04-18] MEDS ORDERED: Promethazine HCl 25 MG/ML VIAL IM PRN (10:31)
[2019-04-18] MEDS ORDERED: Ondansetron PF 4 MG/2 ML Vial ONE (10:36)
[2019-04-18] MEDS ORDERED: PHENYLEPHRINE-NS 100 MCG/ML 10 ML SYRINGE ONE (10:36)
[2019-04-18] MEDS ORDERED: ePHEDrine/0.9% NaCl/PF SYRINGE 50 mg/10 ml ONE (10:36)
[2019-04-18] MEDS ORDERED: Dexamethasone 20 MG/5 ML VIAL ONE (10:36)
[2019-04-18] MEDS ORDERED: PROPOFOL 200 MG/20 ML VIAL ONE (10:36)
[2019-04-18] MEDS ORDERED: Lidocaine 1% PF 5 ML VIAL ONE (10:36)
[2019-04-18] MEDS ORDERED: Glycopyrrolate 0.2 MG/ML 5 ML SYRINGE ONE (10:36)
[2019-04-18] MEDS ORDERED: Rocuronium Bromide 10 MG/ML (10ML VIAL) ONE (10:36)
--- NOTE | 2019-04-18 10:46 | RAD ---
RIGHT HIP 2 VIEWS: INDICATION: ORIF of right hip fracture. COMPARISON: Prior exam dated 04/16/2019. IMPRESSION: There has been interval reduction and placement of a sliding hip screw and side plate traversing the patient's basicervical right femoral neck fracture. Fracture alignment is near-anatomic. Instrument ation projects in the expected position. The healed and instrumented right acetabular fracture is si milar-appearing to the comparison exam. Total fluoroscopic time was 31.2 seconds. Total exposure wa s 3.71 mGy. IMPRESSION: Interval open reduction internal fixation of the right hip. POS: CET
--- NOTE | 2019-04-18 11:07 | OP ---
DATE OF PROCEDURE: 04/18/2019 POSTOPERATIVE DIAGNOSIS: Right intertrochanteric femur fracture. POSTPROCEDURE DIAGNOSIS: Right intertrochanteric femur fracture. SURGICAL PROCEDURE: Open reduction and internal fixation of right intertrochanteric femur fracture. ANESTHESIA: General. DOUBLE CUT OFF SAW OPERATOR: Indy Fuentes PA-C IMPLANTS: Synthes 135-degree 3-hole DHS sideplate with 105 mm hip screw. ESTIMATED BLOOD LOSS: 20 mL. COMPLICATIONS: None. DRAINS: None. SPECIMEN: None. OUTCOME: Near-anatomic alignment. INDICATIONS FOR PROCEDURE: The patient is a 79-year-old gentleman, status post ground level fall sustaining a right intertrochanteric femur fracture. After discussion with the patient and family including risks and benefits, we decided to proceed with DHS device for stabilization of fracture and to allow for mobility. Informed consent has been obtained. I believe all questions answered. DESCRIPTION OF PROCEDURE: The patient was brought to the operating room and a time-out performed followed by induction of general anesthesia. Next, the patient was positioned supine on the fracture table with the injured extremity held in longitudinal traction and slight internal rotation. Next, a sterile prep and drape was performed on the right lateral thigh. Under C-arm localization, a skin incision was made laterally after skin was sharply incised. Dissection was carried down to the underlying tensor fascia and fascia roxanne. This structure was incised in line with the skin incision and reflected anteriorly and posteriorly. The fascia of the vastus lateralis was then encountered. This too was incised in line with the skin incision and then the muscle belly was swept off the posterior leaflet of the fascia down to the level of the linea aspera and then the muscle belly reflected anteriorly. A radiolucent Mcintosh retractor was then placed over the anterior aspect of the femur to elevate the vastus lateralis and allow exposure of the lateral cortex of the femur. Next, a threaded guidewire using the 135-degree jig was passed from the lateral cortex of the femur up the femoral neck into the femoral head approaching a center-center position based on AP and lateral C-arm imaging. Once appropriately positioned, measurement was taken off this pin for the length of the hip screw and then the step drill was passed over this guidewire further preparing the femoral neck and head for acceptance of the hip screw. Next, a 135-degree 3-hole sideplate with 105 mm hip screw was passed over this guidewire. The screw was delivered fully up into the femoral head and then the plate was placed along the lateral cortex of the femur. A total of three 4.5 mm cortical screws were passed through the sideplate into both cortices of the proximal femur. At the completion of this, guidewire was removed. It should be noted that a derotation guidewire was placed temporarily while the screw was being inserted. The guidewires were then removed and then, final AP and lateral C-arm imaging was obtained. Next, the wound was irrigated with bulb syringe and closed in layers with 0 Vicryl for the fascia roxanne, followed by 2-0 Vicryl, and then shannan for the skin. Xeroform gauze and tape dressing was applied to the lateral thigh and then, the patient was transferred to recovery room in stable condition. There were no complications. The patient tolerated the procedure well. Job ID: [id number]
[2019-04-18] MEDS: Insulin Regular 300 UNITS/3 ML VIAL SC PRN ×3 (12:22→21:45)
[2019-04-18 15:48] LABS: #Lymphocytes 0.2 thou/uL (1.20-3.40); #Monocytes 0.2 thou/uL (0.11-0.59); #Neutrophils 7.3 thou/uL (1.40-6.50); %Basophils 0.4 % (0.0-1.0); %Eosinophils 0.1 % (0.0-10.0); %Lymphocytes 2.4 % (21.0-51.0); %Monocytes 2.8 % (0.0-10.0); %Neutrophils 94.3 % (42.0-75.0); Hemoglobin 10.3 g/dL (14.0-18.0); Mean Corpuscular HGB CONC 33.7 g/dL (32.0-36.0); Mean Platelet Volume 7.5 fL (7.4-10.4); Platelet Count 169 thou/uL (130-400); RBC Distribution Width 12.8 % (11.5-14.5); Red Blood Cell (RBC) Count 3.21 mill/uL (4.70-6.10); White Blood Cell (WBC) Count 7.7 thou/uL (4.8-10.8)
--- NOTE | 2019-04-18 16:08 | PRG ---
DATE OF SERVICE: 04/18/2019 SUBJECTIVE: The patient is currently on the surgical floor. He is status post ground level fall. This is hospital day 2. He had a delay in operative procedure due to him being on Xarelto. He has been n.p.o. since midnight. His pain is controlled, and the plan is postoperatively for him to begin physical and occupational therapy and then discuss placement. OBJECTIVE: VITAL SIGNS: Temperature is 98.6, heart rate 80, blood pressure 126/77, respirations 18, oxygen saturation 93% on room air. GENERAL: The patient is resting comfortably in bed. He is awake, responsive, appropriate, and at his baseline. The agrees that he is at baseline. HEENT: Unremarkable. LUNGS: Clear to auscultation with good inspiratory and expiratory effort. HEART: Regular rate and rhythm. ABDOMEN: Soft, flat, and nontender with active bowel sounds. EXTREMITIES: Neurovascularly intact x4. LABORATORY DATA: There are no labs or radiographs to review this morning. The patient is scheduled to have postoperative labs done. ASSESSMENT: 1. Status post ground level fall. 2. Right intertrochanteric hip fracture, awaiting surgery. 3. Urinary tract infection, under treatment, present on admission, uncomplicated. 4. Acute pain secondary to trauma, stable. 5. History of normal pressure hydrocephalus, seizure disorder. 6. Hyperglycemia secondary to type 2 diabetes. 7. History of Xarelto use. PLAN: Plan will be to continue the patient's n.p.o. status, labs postoperatively, and begin physical and occupational therapy postoperatively, and discuss placement. Job ID: [id number]
[2019-04-18 16:09] LABS: Anion Gap 11 mmol/L (10-20); BUN (Urea Nitrogen) 18 mg/dL (8.4-25.7); Calc. Creatinine Clearance 49 mL/min (70-130); Calcium 8.7 mg/dL (7.8-10.44); Carbon Dioxide 25 mmol/L (23-31); Chloride 105 mmol/L (98-107); Estimated GFR-MDRD 61; Glucose 248 mg/dL (83-110); Magnesium 1.7 mg/dL (1.6-2.6); Phosphorus 3.3 mg/dL (2.3-4.7); Potassium 4.8 mmol/L (3.5-5.1); Sodium 136 mmol/L (136-145)
[2019-04-18] MEDS: CEFAZOLIN 2 GM in Premix Bag 1 BAG IVPB SCH (17:35)
[2019-04-18] MEDS: Cyclobenzaprine 10 MG TAB PO PRN (20:50)
[2019-04-18] MEDS: cefTRIAXone\\ROCEPHIN 1 GM in Sodium Chloride 0.9% 100 ML IVPB SCH (23:42)
[2019-04-19] MEDS: Morphine 2 MG/ML SYRINGE SLOW IVP PRN ×2 (01:38→14:21)
[2019-04-19] MEDS: CEFAZOLIN 2 GM in Premix Bag 1 BAG IVPB SCH ×2 (02:49→09:29)
[2019-04-19 05:16] LABS: #Lymphocytes 0.4 thou/uL (1.20-3.40); #Monocytes 0.7 thou/uL (0.11-0.59); #Neutrophils 6.2 thou/uL (1.40-6.50); %Basophils 0.3 % (0.0-1.0); %Eosinophils 0.2 % (0.0-10.0); %Monocytes 9.2 % (0.0-10.0); %Neutrophils 84.3 % (42.0-75.0); Hemoglobin 9.2 g/dL (14.0-18.0); Mean Corpuscular HGB CONC 34.3 g/dL (32.0-36.0); Mean Corpuscular Hemoglobin 32.3 pg (27.0-31.0); Mean Corpuscular Volume 94.3 fL (78.0-98.0); Mean Platelet Volume 8.3 fL (7.4-10.4); Platelet Count 166 thou/uL (130-400); RBC Distribution Width 12.6 % (11.5-14.5); Red Blood Cell (RBC) Count 2.84 mill/uL (4.70-6.10); White Blood Cell (WBC) Count 7.3 thou/uL (4.8-10.8)
[2019-04-19 05:18] LABS: Anion Gap 9 mmol/L (10-20); BUN (Urea Nitrogen) 18 mg/dL (8.4-25.7); Calc. Creatinine Clearance 52 mL/min (70-130); Calcium 8.7 mg/dL (7.8-10.44); Carbon Dioxide 26 mmol/L (23-31); Chloride 104 mmol/L (98-107); Estimated GFR-MDRD 64; Glucose 233 mg/dL (83-110); Magnesium 1.6 mg/dL (1.6-2.6); Phosphorus 2.8 mg/dL (2.3-4.7); Potassium 4.2 mmol/L (3.5-5.1); Sodium 135 mmol/L (136-145)
[2019-04-19] MEDS: Acetaminophen 500 MG TAB PO SCH ×4 (05:55→23:54)
[2019-04-19] MEDS: Insulin Regular 300 UNITS/3 ML VIAL SC PRN ×4 (06:33→20:47)
[2019-04-19] MEDS ORDERED: traMADol HCl 50 MG TAB PO PRN ×2 (08:33→08:34)
[2019-04-19] MEDS: Cyclobenzaprine 10 MG TAB PO PRN (08:36)
[2019-04-19] MEDS: Gabapentin 100 MG CAP PO SCH ×2 (08:37→20:37)
[2019-04-19] MEDS: Famotidine 20 MG TAB PO SCH ×2 (08:37→20:38)
[2019-04-19] MEDS: Polyethylene Glycol 3350 17 GM Packet PO SCH (08:37)
[2019-04-19] MEDS: Senokot S 8.6-50 MG TAB PO SCH ×2 (08:37→21:10)
[2019-04-19] MEDS: Sodium Chloride 0.9% 1,000 ML IV SCH ×2 (11:42→23:58)
[2019-04-19] MEDS ORDERED: Magnesium 2 GM/50 ML 2 GM in Premix Bag 1 BAG IVPB SCH (12:45)
--- NOTE | 2019-04-19 13:04 | PRG ---
DATE OF SERVICE: 04/19/2019 SUBJECTIVE: The patient was seen on the surgical floor. The patient is post ground level fall hospital day #3. The patient is postop day #1 status post open reduction and internal fixation of right intertrochanteric femur fracture. The patient had no overnight events and no seizure-like activity was reported. The patient's pain is well controlled at this time. The patient is tolerating a regular diet. OBJECTIVE: VITAL SIGNS: Blood pressure 169/98, temperature 98.8, pulse 90, respirations 18, SpO2 of 96% on room air. GENERAL: Resting comfortably in bed. The patient awake, alert, in no distress. HEENT: Unremarkable. LUNGS: Clear bilateral, good inspiratory and expiratory effort. HEART: Regular rate, regular rhythm. EXTREMITIES: Neurovascularly intact x4. LABORATORY DATA: WBC 7.3, RBC 2.84, hemoglobin 9.2, hematocrit 26.8, platelets 166, glucose 313. Sodium 135, potassium 4.2, chloride 104, BUN 18, creatinine 1.11, estimated GFR 64, calcium 8.7, phosphorus 2.8, magnesium 1.6. ASSESSMENT: 1. Status post ground level fall. 2. Right intertrochanteric hip fracture postop day #1 open reduction and internal fixation. 3. Urinary tract infection under treatment, present on admission. 4. Acute pain secondary to trauma. 5. History of normal-pressure hydrocephalus, seizure disorder. 6. Hyperglycemia secondary to type 2 diabetes. 7. History of Xarelto use. PLAN: Continue supportive care. Change the patient's diet to a diabetic diet. Encourage physical and occupational therapy. We will restart the patient's home antihypertensive and diabetic medications. The patient is pending placement to inpatient rehab. The patient was evaluated by Dr. Green during morning rounds. Job ID: [id number] [facility]
[2019-04-19] MEDS ORDERED: glipiZIDE 5 MG TAB PO SCH ×2 (15:00)
[2019-04-19] MEDS: Aspirin 81 mg Enteric Coated Tablet PO SCH (20:37)
[2019-04-19] MEDS: Metoprolol Tartrate 25 MG TAB PO SCH (20:37)
[2019-04-19] MEDS: cefTRIAXone\\ROCEPHIN 1 GM in Sodium Chloride 0.9% 100 ML IVPB SCH (23:52)
[2019-04-20] MEDS: Cyclobenzaprine 10 MG TAB PO PRN ×2 (02:18→10:32)
[2019-04-20] MEDS: Morphine 2 MG/ML SYRINGE SLOW IVP PRN (02:19)
--- NOTE | 2019-04-20 02:40 | PRG ---
DATE OF SERVICE: 04/20/2019 SUBJECTIVE: The patient remains on the surgical floor. He is status post a ground level fall in which he sustained a right hip fracture. The patient had a delay in his surgery due to his Xarelto use. The patient underwent his procedure yesterday. He tolerated it well. Currently, his pain is controlled. He is tolerating a diet and he underwent physical therapy today. OBJECTIVE: VITAL SIGNS: Stable. The patient is afebrile. GENERAL: The patient is resting comfortably in bed. He appears in no distress. Respirations appear nonlabored. He is currently asleep. I did not awaken him for exam. The nurse's note reported no concerns at this time. ASSESSMENT: 1. Status post ground level fall. 2. Status post open reduction and internal fixation of right intertrochanteric hip fracture. 3. Urinary tract infection, present on admission, day 3 of Rocephin. 4. Acute pain secondary to trauma, stable, improved. 5. History of normal-pressure hydrocephalus, seizure disorder. 6. History of type 2 diabetes, currently on a sliding scale. 7. History of Xarelto use. PLAN: Plan will be to continue supportive care, physical and occupational therapy and discuss placement. Job ID: [id number]
[2019-04-20 04:50] LABS: #Eosinphils 0.1 thou/uL (0.0-0.7); #Lymphocytes 0.8 thou/uL (1.20-3.40); #Monocytes 0.7 thou/uL (0.11-0.59); #Neutrophils 4.7 thou/uL (1.40-6.50); %Basophils 0.1 % (0.0-1.0); %Lymphocytes 12.8 % (21.0-51.0); %Monocytes 10.8 % (0.0-10.0); %Neutrophils 75.3 % (42.0-75.0); Hemoglobin 9.3 g/dL (14.0-18.0); Mean Corpuscular HGB CONC 33.8 g/dL (32.0-36.0); Mean Corpuscular Volume 94.7 fL (78.0-98.0); Mean Platelet Volume 8.3 fL (7.4-10.4); Platelet Count 177 thou/uL (130-400); RBC Distribution Width 12.8 % (11.5-14.5); White Blood Cell (WBC) Count 6.2 thou/uL (4.8-10.8)
[2019-04-20] MEDS: Acetaminophen 500 MG TAB PO SCH (05:07)
[2019-04-20 05:12] LABS: Phosphorus 2.4 mg/dL (2.3-4.7)
[2019-04-20 05:14] LABS: Anion Gap 7 mmol/L (10-20); BUN (Urea Nitrogen) 17 mg/dL (8.4-25.7); Calc. Creatinine Clearance 60 mL/min (70-130); Calcium 8.7 mg/dL (7.8-10.44); Carbon Dioxide 28 mmol/L (23-31); Chloride 108 mmol/L (98-107); Estimated GFR-MDRD 76; Glucose 94 mg/dL (83-110); Potassium 3.9 mmol/L (3.5-5.1); Sodium 139 mmol/L (136-145)
[2019-04-20] MEDS ORDERED: PHOS-NAK 1 PKT PACK PO SCH (07:45)
[2019-04-20] MEDS: Aspirin 81 mg Enteric Coated Tablet PO SCH (07:46)
[2019-04-20] MEDS: Senokot S 8.6-50 MG TAB PO SCH ×2 (07:47→20:30)
[2019-04-20] MEDS: Metoprolol Tartrate 25 MG TAB PO SCH ×2 (07:47→20:26)
[2019-04-20] MEDS: Gabapentin 300 MG CAP PO SCH ×3 (07:47→20:25)
[2019-04-20] MEDS: Lisinopril 20 MG TAB PO SCH (07:47)
[2019-04-20] MEDS: Polyethylene Glycol 3350 17 GM Packet PO SCH (07:48)
[2019-04-20] MEDS: Famotidine 20 MG TAB PO SCH ×2 (08:14→20:25)
[2019-04-20] MEDS ORDERED: Alogliptin 25 MG TAB PO SCH ×2 (09:00)
[2019-04-20] MEDS ORDERED: Lisinopril 20 MG TAB PO SCH (09:00)
[2019-04-20] MEDS ORDERED: Acetaminophen/Codeine 30-300mg Tablet PO PRN ×2 (10:43→17:28)
[2019-04-20] MEDS ORDERED: Acetaminophen/Codeine 30-300mg Tablet PO SCH (12:00)
[2019-04-20] MEDS: Acetaminophen 325 MG TAB PO SCH ×2 (12:56→17:44)
--- NOTE | 2019-04-20 15:51 | PRG ---
DATE OF SERVICE: 04/20/2019 SUBJECTIVE: The patient was seen this morning lying in bed with no signs of acute distress; however, nursing reported that they feel the patient cannot express when he is having pain. He has been on p.r.n. tramadol but has not been taking it. Overnight, he did become agitated. He was given morphine and this significantly improved his pain. His family at the bedside, does report that he has a history of seizures. Tramadol was discontinued due to its ability to lower the seizure threshold. OBJECTIVE: VITAL SIGNS: Temperature 97.5, pulse 66, respirations 20, oxygen saturation 100% on room air, blood pressure 123/71. GENERAL: Well-appearing elderly male, sitting up in bed with no signs of acute distress. PULMONARY: Equal chest rise and fall. Clear breath sounds bilaterally. No signs of acute respiratory distress. CARDIAC: Regular rate and rhythm. No murmurs, gallops, or rubs. GI: Abdomen is soft, nontender, nondistended. EXTREMITIES: 2+ pulses in all extremities. Gross motor and sensation is intact. No significant swelling noted. NEURO: GCS is 14 minus 1 for verbal. LABORATORY FINDINGS: White count 6.2, hemoglobin 9.3, hematocrit 27.5, platelets 177. Sodium 139, potassium 3.9, chloride 108, carbon dioxide 28, BUN 17, creatinine 0.96, glucose 94, phosphorus 2.4, magnesium 2.0. DIAGNOSTIC FINDINGS: There are no new diagnostic findings to discuss. ASSESSMENT: 1. Status post mechanical fall, on Xarelto. 2. Right intertrochanteric fracture, status post repair. 3. Urinary tract infection, stable. 4. Hypokalemia and hypophosphatemia. 5. History of seizures, diabetes, normal-pressure hydrocephalus, atrial fibrillation, and dementia. PLAN: Continue current diet and physical therapy. We will discontinue tramadol and place the patient while on scheduled Tylenol No.3 and p.r.n. Tylenol No.3, also decrease the amount of scheduled Tylenol the patient is taking. We would discontinue the patient's aspirin for DVT prophylaxis and start him on his home Xarelto today. The patient's UTI was treated with Rocephin; however, culture was not completed. We will send the culture today to make sure we appropriately treated the infection. The patient is pending placement at acute rehab facility. He is ready for discharge at this time. We are pending insurance authorization. The patient was seen and examined by Dr. Green this morning during rounds. Job ID: [id number]
[2019-04-20] MEDS: Insulin Regular 300 UNITS/3 ML VIAL SC PRN (17:44)
[2019-04-20] MEDS: Rivaroxaban 10 MG TAB PO SCH (17:45)
[2019-04-20] MEDS: Atorvastatin Calcium 20 MG TAB PO SCH (20:29)
[2019-04-20] MEDS: cefTRIAXone\\ROCEPHIN 1 GM in Sodium Chloride 0.9% 100 ML IVPB SCH (22:20)
[2019-04-21] MEDS: Acetaminophen 325 MG TAB PO SCH ×5 (00:48→23:16)
--- NOTE | 2019-04-21 01:34 | PRG ---
DATE OF SERVICE: 04/21/2019 SUBJECTIVE: The patient remains on the surgical floor. He is status post ground level fall, on Xarelto. The patient is status post open reduction and internal fixation of right hip fracture. He is also being treated for urinary tract infection. Today, he reportedly had some agitation. He does have some baseline dementia, and this is likely contributing to it. There is also concern for his pain management. His tramadol was discontinued due to his history of seizure disorder. He was switched to Tylenol with codeine. At the time my visit, he has not required that medication. The nurses stated that he refused his evening medications and has just gone to sleep. OBJECTIVE: VITAL SIGNS: Stable. He is afebrile. GENERAL: The patient appears to be resting comfortably in bed. He appears in no distress. LUNGS: His respirations appear nonlabored. ASSESSMENT: 1. Status post ground level fall, on Xarelto. 2. Status post open reduction and internal fixation of right intertrochanteric hip fracture. 3. Urinary tract infection, present on admission, treated with three days of Rocephin. 4. Acute pain secondary to trauma, improved. 5. History of normal-pressure hydrocephalus, seizure disorder. 6. History of type 2 diabetes, currently on a sliding scale. 7. History of Xarelto use. 8. History of dementia. PLAN: Plan will be to continue supportive care. The Day Team has ordered a repeat urinalysis and culture to ensure completion of his urinary tract infection treatment. He should continue physical and occupational therapy and is awaiting placement. Job ID: [id number]
[2019-04-21] MEDS: Metoprolol Tartrate 25 MG TAB PO SCH ×2 (09:17→21:50)
[2019-04-21] MEDS: Gabapentin 300 MG CAP PO SCH ×3 (09:18→21:50)
[2019-04-21] MEDS: Senokot S 8.6-50 MG TAB PO SCH ×2 (09:18→21:50)
[2019-04-21] MEDS: Famotidine 20 MG TAB PO SCH ×2 (09:19→21:50)
[2019-04-21] MEDS: Polyethylene Glycol 3350 17 GM Packet PO SCH (09:19)
[2019-04-21] MEDS: Lisinopril 20 MG TAB PO SCH (12:26)
[2019-04-21] MEDS: Insulin Regular 300 UNITS/3 ML VIAL SC PRN ×2 (13:35→18:15)
[2019-04-21] MEDS ORDERED: DICLOFENAC 1% TOP PRN (16:31)
--- NOTE | 2019-04-21 17:45 | PRG ---
DATE OF SERVICE: 04/21/2019 This is Mely Dubois NP dictating a report for Segun Green DO. SUBJECTIVE: The patient was seen this morning, lying in the hospital bed, in no acute distress. The patient's states that he did not sleep well. Nursing staff reports the patient was agitated overnight and refused to take his medications. The patient continues to have a good appetite. OBJECTIVE: VITAL SIGNS: Temperature 98.5, pulse 85, respirations 20, SpO2 of 93% on room air, and blood pressure 122/70. GENERAL: Well-appearing elderly male, lying in hospital bed, in no acute distress. PULMONARY: Equal chest rise and fall, good inspiratory and expiratory effort. CARDIAC: Regular rate, regular rhythm. GI: Soft, nontender, and nondistended. EXTREMITIES: 2+ pulses in all extremities. NEUROLOGIC: No focal deficit. LABORATORY DATA: No labs to evaluate today. DIAGNOSTICS: There are no diagnostics to review. ASSESSMENT: 1. Status post mechanical fall, on Xarelto. 2. Right intertrochanteric fracture, status post open reduction and internal fixation. 3. Urinary tract infection, stable. 4. History of seizures. 5. Diabetes. 6. Normal pressure hydrocephalus. 7. Atrial fibrillation. 8. Dementia. PLAN: Continue current diet as tolerated and physical and occupational therapy. Continue supportive care. The patient is pending placement to inpatient rehab, pending [place] authorization. The patient is ready for discharge at this time. The patient was examined by Dr. Green during morning rounds. The plan was discussed with the patient and family who agree. Job ID: [id number]
[2019-04-21] MEDS: Rivaroxaban 10 MG TAB PO SCH (18:15)
[2019-04-21] MEDS: Atorvastatin Calcium 20 MG TAB PO SCH (21:50)
--- NOTE | 2019-04-21 23:56 | PRG ---
DATE OF SERVICE: 04/21/2019 SUBJECTIVE: The patient was seen this evening during rounds, lying in bed and asleep with no signs of acute distress. Nursing reported no acute events. OBJECTIVE: VITAL SIGNS: Temperature 98.6, pulse 70, respirations 16, oxygen saturation 92% on room air, and blood pressure 128/69. GENERAL: Well-appearing elderly male, lying in bed with no signs of acute distress. PULMONARY: Equal chest rise and fall. No signs of acute respiratory distress. LABORATORY FINDINGS: There are no new laboratory findings to discuss. DIAGNOSTIC FINDINGS: There are no new diagnostic findings to discuss. ASSESSMENT: 1. Status post mechanical fall on Xarelto. 2. Right intertrochanteric femur fracture, status post repair, postop day #3. 3. Urinary tract infection, improved. 4. History of seizures, diabetes, normal-pressure hydrocephalus, atrial fibrillation, and dementia. PLAN: Continue current diet and pain regimen. Continue physical and occupational therapy. Pending urine culture to assess if Rocephin appropriately treated the infection. The patient is pending placement rehab at [facility]. He is ready for discharge at this time. Job ID: [id number]
[2019-04-22] MEDS ORDERED: Acetaminophen 325 MG TAB ONE (05:47)
[2019-04-22] MEDS ORDERED: Tamsulosin HCl 0.4 MG CAP PO SCH (09:00)
[2019-04-22] MEDS: Gabapentin 300 MG CAP PO SCH ×2 (09:11→15:15)
[2019-04-22] MEDS: Famotidine 20 MG TAB PO SCH (09:11)
[2019-04-22] MEDS: Lisinopril 20 MG TAB PO SCH (09:11)
[2019-04-22] MEDS: Acetaminophen 325 MG TAB PO SCH ×3 (11:40→17:02)
[2019-04-22] MEDS: Insulin Regular 300 UNITS/3 ML VIAL SC PRN ×2 (11:54→16:05)
[2019-04-22] MEDS: Senokot S 8.6-50 MG TAB PO SCH (14:04)
[2019-04-22] MEDS: Metoprolol Tartrate 25 MG TAB PO SCH (14:04)
[2019-04-22] MEDS: Polyethylene Glycol 3350 17 GM Packet PO SCH (14:04)
--- NOTE | 2019-04-22 14:14 | PRG ---
DATE OF SERVICE: 04/22/2019 SUBJECTIVE: The patient was seen this morning resting comfortably in hospital bed. The patient again did not sleep well last night. The patient had urinary retention overnight and had to be in-and-out cathed. OBJECTIVE: VITAL SIGNS: Stable, afebrile. HEENT: Unremarkable. LUNGS: Equal chest rise and fall. Good inspiratory and expiratory effort. No respiratory distress. LABORATORY DATA: There are no labs to evaluate today. DIAGNOSTIC STUDIES: There are no new diagnostics to review. ASSESSMENT: 1. Status post mechanical fall, on Xarelto. 2. Right intertrochanteric fracture, status post open reduction and internal fixation. 3. Urinary tract infection, stable. 4. Urinary retention. 5. History of seizures, diabetes, normal-pressure hydrocephalus, atrial fibrillation, and dementia. PLAN: Continue current diet as tolerated. Continue to have Physical and Occupational Therapy work with the patient. We will leave Segundo in at this time as the patient has had urinary retention. The patient is pending insurance and [facility] authorization for placement to inpatient rehab. The patient is ready for discharge at this time. Job ID: [id number]
[2019-04-22 15:55] VITALS: BP 122/73; TEMP 98.9
[2019-04-22] MEDS: Rivaroxaban 10 MG TAB PO SCH (17:02)
== END 2019-04-22 18:10 | DRG 481 ==
LOC: ERS 19:00 → SURG A 23:57
PROVIDERS: ADMIT Surgery; ATTEND Surgery
PROC: 0QS604Z Reposition Right Upper Femur with Internal Fixation Device, Open Approach (ICD-10-PCS; principal; 2019-04-18)
DX: S72.141A Displaced intertrochanteric fracture of right femur, initial encounter for closed fracture (principal); N39.0 Urinary tract infection, site not specified; G91.2 (Idiopathic) normal pressure hydrocephalus; F03.91 Unspecified dementia, unspecified severity, with behavioral disturbance; G40.909 Epilepsy, unspecified, not intractable, without status epilepticus; I48.91 Unspecified atrial fibrillation; Z86.718 Personal history of other venous thrombosis and embolism; R40.2413 Glasgow coma scale score 13-15, at hospital admission; G89.11 Acute pain due to trauma; E11.65 Type 2 diabetes mellitus with hyperglycemia; S00.01XA Abrasion of scalp, initial encounter; Z79.01 Long term (current) use of anticoagulants; F15.90 Other stimulant use, unspecified, uncomplicated; E87.6 Hypokalemia; E83.39 Other disorders of phosphorus metabolism; R33.9 Retention of urine, unspecified; W18.39XA Other fall on same level, initial encounter; Y93.89 Activity, other specified; Y92.098 Other place in other non-institutional residence as the place of occurrence of the external cause
CPT/HCPCS: 36415; 36416; 51702; 70450; 72170; 76000; 80048; 80053; 81003; 81015; 83735; 84100; 85025; 85610; 85730; 87086; 93005; 96374; 96375; 96376; C1713; C1769; J0690; J0696; J1100; J1815; J2001; J2270; J2405; J2704; J3010; J3475; J3490

== ENCOUNTER 2019-04-28 19:25 | Emergency (ER) | payer OTHER ==
--- NOTE | 2019-04-28 19:41 | CT ---
Head CT without contrast 04/28/2019: COMPARISON: 04/16/2019 HISTORY: Weakness TECHNIQUE: Axial CT imaging at 5 mm intervals from vertex through skull base without contrast FINDINGS: The imaged paranasal sinuses and mastoid air cells are well aerated. There is a karlie hole i n the frontal region on the right, stable. There is stable periventricular, deep, and subcortical white matter hypodensity, evidence of small vessel disease. No intracranial hemorrhage, midline shift , or mass effect. IMPRESSION: Stable head CT. Results called to Dr. Banegas 7:38 PM 04/28/2019
[2019-04-28 19:42] LABS: #Eosinphils 0.1 thou/uL (0.0-0.7); #Lymphocytes 0.8 thou/uL (1.20-3.40); #Monocytes 0.8 thou/uL (0.11-0.59); #Neutrophils 6.6 thou/uL (1.40-6.50); %Basophils 0.6 % (0.0-1.0); %Eosinophils 0.7 % (0.0-10.0); %Lymphocytes 9.9 % (21.0-51.0); %Monocytes 9.8 % (0.0-10.0); Hemoglobin 10.6 g/dL (14.0-18.0); Mean Corpuscular HGB CONC 33.4 g/dL (32.0-36.0); Mean Corpuscular Hemoglobin 32.1 pg (27.0-31.0); Mean Platelet Volume 7.7 fL (7.4-10.4); Platelet Count 280 thou/uL (130-400); RBC Distribution Width 13.1 % (11.5-14.5); Red Blood Cell (RBC) Count 3.29 mill/uL (4.70-6.10); White Blood Cell (WBC) Count 8.3 thou/uL (4.8-10.8)
[2019-04-28 19:47] LABS: INR-International Normal Ratio 1.2; Prothrombin Time 15.5 SEC (12.0-14.7)
[2019-04-28 19:48] LABS: PTT 34.2 SEC (22.9-36.1)
[2019-04-28 19:54] LABS: ALT (SGPT) 38 U/L (8-55); AST (SGOT) 23 U/L (5-34); Albumin 3.3 g/dL (3.4-4.8); Alkaline Phosphatase 177 U/L (40-110); Anion Gap 10 mmol/L (10-20); BUN (Urea Nitrogen) 31 mg/dL (8.4-25.7); Bilirubin, Total 0.4 mg/dL (0.2-1.2); CK (CPK) 58 U/L (30-200); Calc. Creatinine Clearance 0 mL/min (70-130); Calcium 9.5 mg/dL (7.8-10.44); Carbon Dioxide 28 mmol/L (23-31); Chloride 100 mmol/L (98-107); Estimated GFR-MDRD 53; Globulin 2.9 g/dL (2.4-3.5); Glucose 132 mg/dL (83-110); Potassium 5.1 mmol/L (3.5-5.1); Protein, Total 6.2 g/dL (5.8-8.1); Sodium 133 mmol/L (136-145)
== END 2019-04-28 20:38 ==
LOC: ERS 19:25
DX: R46.89 Other symptoms and signs involving appearance and behavior (principal); E11.9 Type 2 diabetes mellitus without complications; Z86.718 Personal history of other venous thrombosis and embolism; Z87.891 Personal history of nicotine dependence; Z79.899 Other long term (current) drug therapy; Z79.84 Long term (current) use of oral hypoglycemic drugs
CPT/HCPCS: 36416; 70450; 80053; 82550; 84484; 85025; 85610; 85730; 93005